=== PATIENT | female | born 1980 | race African-American/Black ===

== ENCOUNTER 2016-11-07 08:42 | Emergency (ER) | payer OTHER ==
[~2016-11-07] VITALS: Ht 160 cm; Wt 61.2 kg
[2016-11-07 08:59] LABS: URINE BILIRUBIN NEGATIVE (Negative); URINE BLOOD NEGATIVE (Negative); URINE COLOR YELLOW; URINE GLUCOSE-RANDOM* NEGATIVE (Negative); URINE KETONES NEGATIVE (Negative); URINE NITRITE NEGATIVE (Negative); URINE PROTEIN (DIPSTICK) NEGATIVE (Negative); URINE UROBILINOGEN 0.2 E.U./dl (0.2-1.0)
[2016-11-07 09:10] LABS: CASTS None Seen /LPF (None Seen); CRYSTALS None Seen /LPF (None Seen); SQUAMOUS 0-3 Few /LPF (0-3); URINE RBC None Seen /HPF (0-2); URINE WBC 0-5 Rare /HPF (0-5)
[2016-11-07 10:30] LABS: HEMATOCRIT 36.4 % (37.0-47.0); MCH 25.5 pg (26.0-34.0); MCHC 32.9 g/dL (28.0-37.0); MCV 77.4 fL (80.0-100.0); PLATELET COUNT 444 thou/uL (150-400); RBC 4.71 mil/uL (4.20-5.00); WBC 11.7 thou/uL (4.0-11.0)
[2016-11-07 10:31] LABS: MANUAL DIFF YES
[2016-11-07 10:36] LABS: OBSERVED RETIC COUNT 2.71 % (0.6-2.6)
[2016-11-07 10:37] LABS: ABSOLUTE RETIC COUNT 0.127 10^6/uL
[2016-11-07 10:39] LABS: CALCIUM 9.2 mg/dL (8.5-10.1); CREATININE 0.9 mg/dL (0.6-1.0); POTASSIUM 3.2 mmol/L (3.5-5.1)
[2016-11-07 10:44] LABS: ALBUMIN 3.8 g/dL (3.4-5.0); TOTAL BILIRUBIN 0.7 mg/dL (<0.1-1.0); TOTAL PROTEIN 7.6 g/dL (6.4-8.2)
[2016-11-07 10:58] LABS: ABSOLUTE NEUTROPHILS 6.9 thou/uL (1.4-8.2); MICROCYTES 2+; TOTAL CELL COUNT 100
[2016-11-07 10:59] LABS: ANISOCYTOSIS 2+
[2016-11-07 11:00] LABS: HYPOCHROMASIA 2+; POLYCHROMASIA OCCASIONAL; TARGET CELLS 1+
[2016-11-07] MEDS ORDERED: NORCO 5-325 TA1 EACH PO (11:57)
[2016-11-07] MEDS ORDERED: PHENERGAN 25 MG25 M1 PO (12:06)
[2016-11-07] MEDS ORDERED: BACTRIM DS TAB1 EACH PO (12:08)
[2016-11-07 12:42] VITALS: BP 114/70
== END 2016-11-07 12:43 | disposition home or self-care (01) ==
LOC: ER 08:42
PROVIDERS: Physician Assistant
DX: N12 Tubulo-interstitial nephritis, not specified as acute or chronic (principal); N83.201 Unspecified ovarian cyst, right side; D57.1 Sickle-cell disease without crisis; Z88.5 Allergy status to narcotic agent

== ENCOUNTER 2016-11-09 08:25 | Emergency (ER) | payer OTHER ==
[~2016-11-09] VITALS: Ht 162.6 cm; Wt 63.5 kg
[~2016-11-09 08:25] MED LIST: BACTRIM DS TAB1 EACH PO; NORCO 5-325 TA1 EACH PO; PHENERGAN 25 MG25 M1 PO
[2016-11-09 08:54] VITALS: BP 124/71
[2016-11-09 10:07] LABS: MCHC 33.2 g/dL (28.0-37.0); WBC 11.2 thou/uL (4.0-11.0)
[2016-11-09 10:10] LABS: HEMATOCRIT 37.7 % (37.0-47.0); HEMOGLOBIN 12.5 gm/dL (12.0-15.0); MCH 25.7 pg (26.0-34.0); MCV 77.4 fL (80.0-100.0); PLATELET COUNT 433 thou/uL (150-400); RBC 4.87 mil/uL (4.20-5.00); RDW 17.8 % (10.5-14.5)
[2016-11-09 10:17] LABS: MANUAL DIFF YES
[2016-11-09 10:18] LABS: CALCIUM 9.4 mg/dL (8.5-10.1); CREATININE 0.8 mg/dL (0.6-1.0); POTASSIUM 3.5 mmol/L (3.5-5.1)
[2016-11-09 10:22] LABS: ALBUMIN 3.9 g/dL (3.4-5.0); TOTAL BILIRUBIN 0.7 mg/dL (<0.1-1.0); TOTAL PROTEIN 7.7 g/dL (6.4-8.2)
[2016-11-09 10:54] LABS: ABSOLUTE RETIC COUNT 0.1209 10^6/uL; OBSERVED RETIC COUNT 2.48 % (0.6-2.6)
[2016-11-09 10:57] LABS: URINE BILIRUBIN NEGATIVE (Negative); URINE BLOOD NEGATIVE (Negative); URINE COLOR YELLOW; URINE GLUCOSE-RANDOM* NEGATIVE (Negative); URINE KETONES TRACE (Negative); URINE NITRITE NEGATIVE (Negative); URINE PROTEIN (DIPSTICK) NEGATIVE (Negative); URINE SPECIFIC GRAVITY 1.015 (1.003-1.035); URINE UROBILINOGEN 0.2 E.U./dl (0.2-1.0)
[2016-11-09 11:00] LABS: ABSOLUTE NEUTROPHILS 7.3 thou/uL (1.4-8.2); TOTAL CELL COUNT 100
[2016-11-09 11:01] LABS: ANISOCYTOSIS 1+
[2016-11-09 11:45] VITALS: BP 115/60
[2016-11-09] MEDS ORDERED: LEVAQUIN 500 M500 M2 PO (12:13)
[2016-11-09] MEDS ORDERED: PHENERGAN 25 MG25 M1 PO (12:13)
[2016-11-09 12:23] VITALS: BP 114/67
== END 2016-11-09 12:51 | disposition left against medical advice (07) ==
LOC: ER 08:25 → 4E 11:08 → EROBS 11:08 → ER 11:08 → EROBS 11:46 → 4E 11:46 → ER 12:51
PROVIDERS: Emergency Medicine; Nurse Practitioner Family
DX: D57.00 Hb-SS disease with crisis, unspecified (principal); R19.7 Diarrhea, unspecified; R10.9 Unspecified abdominal pain; N39.0 Urinary tract infection, site not specified; Z88.5 Allergy status to narcotic agent

== ENCOUNTER 2016-11-12 17:30 | Emergency (ER) | payer OTHER ==
[~2016-11-12] VITALS: Ht 157.5 cm; Wt 76.2 kg
[~2016-11-12 17:30] MED LIST changes: +LEVAQUIN 500 M500 M2 PO
[2016-11-12 18:53] VITALS: BP 111/64
== END 2016-11-12 19:02 | disposition home or self-care (01) ==
LOC: ER 17:30
DX: D57.00 Hb-SS disease with crisis, unspecified (principal); Z88.5 Allergy status to narcotic agent

== ENCOUNTER 2016-11-28 15:16 | Emergency (ER) | payer OTHER ==
[~2016-11-28] VITALS: Ht 157.5 cm; Wt 76.2 kg
[2016-11-28] MEDS ORDERED: XARELTO20 MG PO (15:53)
[2016-11-28] MEDS ORDERED: FOLIC ACID1 MG PO (15:54)
[2016-11-28] MEDS ORDERED: HYDROCODONE-AP1 EAC6 PO (15:54)
[2016-11-28] MEDS ORDERED: DILAUDID 2 MG TA2 MG PO (15:55)
[2016-11-28 16:36] LABS: MCV 77.9 fL (80.0-100.0)
[2016-11-28 16:38] LABS: ABSOLUTE RETIC COUNT 0.1227 10^6/uL; HEMATOCRIT 35.8 % (37.0-47.0); HEMOGLOBIN 11.9 gm/dL (12.0-15.0); MCH 25.9 pg (26.0-34.0); MCHC 33.3 g/dL (28.0-37.0); OBSERVED RETIC COUNT 2.67 % (0.6-2.6); PLATELET COUNT 441 thou/uL (150-400); RDW 18.2 % (10.5-14.5)
[2016-11-28 16:39] LABS: MANUAL DIFF YES
[2016-11-28 16:43] LABS: CREATININE 0.8 mg/dL (0.6-1.0); POTASSIUM 3.1 mmol/L (3.5-5.1)
[2016-11-28 17:12] LABS: ABSOLUTE NEUTROPHILS 6.7 thou/uL (1.4-8.2); TOTAL CELL COUNT 100
[2016-11-28 17:13] LABS: ANISOCYTOSIS 2+
[2016-11-28 17:14] LABS: TARGET CELLS 1+
[2016-11-28 17:15] LABS: POLYCHROMASIA OCCASIONAL; WBC 12.1 thou/uL (4.0-11.0)
[2016-11-28] MEDS ORDERED: PERCOCET 5-3251 EACH PO (17:48)
[2016-11-28 17:58] VITALS: BP 107/53
== END 2016-11-28 18:06 | disposition home or self-care (01) ==
LOC: ER 15:16
PROVIDERS: Emergency Medicine
DX: D57.00 Hb-SS disease with crisis, unspecified (principal); R19.7 Diarrhea, unspecified; Z88.5 Allergy status to narcotic agent

== ENCOUNTER 2016-12-14 02:08 | Emergency (ER) | payer OTHER ==
[~2016-12-14] VITALS: Ht 157.5 cm; Wt 72.6 kg
[~2016-12-14 02:08] MED LIST changes: +DILAUDID 2 MG TA2 MG PO; +FOLIC ACID1 MG PO; +HYDROCODONE-AP1 EAC6 PO; +PERCOCET 5-3251 EACH PO; +XARELTO20 MG PO
[2016-12-14] MEDS ORDERED: PLAVIX 75 MG TA75 MG PO (02:34)
[2016-12-14 02:58] LABS: AMP/METHAMP Negative (Negative); BARBITURATES Negative (Negative); BENZODIAZEPINES Negative (Negative); COCAINE Negative (Negative); METHADONE Negative (Negative); OPIATES POSITIVE (Negative); PCP Negative (Negative); THC Negative (Negative)
[2016-12-14 03:33] LABS: HEMOGLOBIN 11.9 gm/dL (12.0-15.0); MCH 26.1 pg (26.0-34.0); MCV 79.2 fL (80.0-100.0); PLATELET COUNT 389 thou/uL (150-400); RBC 4.54 mil/uL (4.20-5.00)
[2016-12-14 03:37] LABS: MANUAL DIFF YES
[2016-12-14 03:38] LABS: ABSOLUTE RETIC COUNT 0.1157 10^6/uL; OBSERVED RETIC COUNT 2.55 % (0.6-2.6)
[2016-12-14 03:43] LABS: ANION GAP 10 mmol/L (7-16); BUN 5 mg/dL (7-18); CHLORIDE 105 mmol/L (98-107); CO2 24 mmol/L (21-32); CREATININE 0.7 mg/dL (0.6-1.0); GLUCOSE 93 mg/dL (74-106); POTASSIUM 3.4 mmol/L (3.5-5.1); SODIUM 139 mmol/L (136-145)
[2016-12-14 03:48] LABS: ALBUMIN 3.3 g/dL (3.4-5.0); ALKALINE PHOSPHATASE 57 U/L (46-116); DIRECT BILIRUBIN < 0.1 mg/dL (<0.1-0.3); SGOT 22 U/L (15-37); SGPT 10 U/L (30-65); TOTAL BILIRUBIN 0.6 mg/dL (<0.1-1.0); TOTAL PROTEIN 6.8 g/dL (6.4-8.2)
[2016-12-14 05:09] LABS: ABSOLUTE NEUTROPHILS 4.1 thou/uL (1.4-8.2); TOTAL CELL COUNT 100
[2016-12-14 05:10] LABS: ANISOCYTOSIS 2+; OVALOCYTES 1+; POLYCHROMASIA OCCASIONAL; TARGET CELLS 1+
[2016-12-14] MEDS ORDERED: NORCO 5-325 TA1 EACH PO (05:34)
[2016-12-14] MEDS ORDERED: ZOFRAN ODT4 MG PO (05:34)
[2016-12-14] MEDS ORDERED: LOPERAMIDE 2 MG2 M1 PO (05:34)
[2016-12-14 05:35] VITALS: BP 123/76
== END 2016-12-14 05:35 | disposition home or self-care (01) ==
LOC: ER 02:08
PROVIDERS: Emergency Medicine
DX: D57.00 Hb-SS disease with crisis, unspecified (principal); R19.7 Diarrhea, unspecified; F10.99 Alcohol use, unspecified with unspecified alcohol-induced disorder; Z88.5 Allergy status to narcotic agent

== ENCOUNTER 2016-12-23 16:38 | Emergency (ER) | payer OTHER ==
[~2016-12-23] VITALS: Ht 157.5 cm; Wt 77.6 kg
[~2016-12-23 16:38] MED LIST changes: +LOPERAMIDE 2 MG2 M1 PO; +PLAVIX 75 MG TA75 MG PO; +ZOFRAN ODT4 MG PO
[2016-12-23 19:45] LABS: WBC 12.2 thou/uL (4.0-11.0)
[2016-12-23 19:46] LABS: HEMOGLOBIN 11.5 gm/dL (12.0-15.0); MCH 26.4 pg (26.0-34.0); MCHC 34.7 g/dL (28.0-37.0); PLATELET COUNT 408 thou/uL (150-400); RBC 4.34 mil/uL (4.20-5.00); RDW 17.5 % (10.5-14.5)
[2016-12-23 19:54] LABS: CALCIUM 8.7 mg/dL (8.5-10.1); CREATININE 0.7 mg/dL (0.6-1.0); POTASSIUM 3.2 mmol/L (3.5-5.1)
[2016-12-23 19:55] LABS: MANUAL DIFF YES
[2016-12-23 20:27] LABS: ABSOLUTE NEUTROPHILS 7.1 thou/uL (1.4-8.2); TOTAL CELL COUNT 100
[2016-12-23 20:28] LABS: ANISOCYTOSIS 1+; HYPOCHROMASIA 1+; MICROCYTES 1+; PLATELET ESTIMATE INCREASED
[2016-12-23 20:29] LABS: POIKILOCYTOSIS 1+; TARGET CELLS 1+
[2016-12-23] MEDS ORDERED: NORCO 5-325 TA1 EACH PO (21:07)
[2016-12-23 21:20] VITALS: BP 97/55
== END 2016-12-23 21:21 | disposition home or self-care (01) ==
LOC: ER 16:38
PROVIDERS: Emergency Medicine
DX: T80.89XA Other complications following infusion, transfusion and therapeutic injection, initial encounter (principal); F10.99 Alcohol use, unspecified with unspecified alcohol-induced disorder; Z88.5 Allergy status to narcotic agent; Y84.8 Other medical procedures as the cause of abnormal reaction of the patient, or of later complication, without mention of misadventure at the time of the procedure; Y92.89 Other specified places as the place of occurrence of the external cause

== ENCOUNTER 2017-01-06 19:50 | Inpatient (IN) | payer OTHER ==
[~2017-01-06] VITALS: Ht 157.5 cm; Wt 78.0 kg
[2017-01-06 19:57] VITALS: BP 144/77
[2017-01-06 22:16] LABS: HEMATOCRIT 34.4 % (37.0-47.0); HEMOGLOBIN 11.4 gm/dL (12.0-15.0); MCH 25.5 pg (26.0-34.0); MCHC 33.2 g/dL (28.0-37.0); MCV 76.7 fL (80.0-100.0); PLATELET COUNT 410 thou/uL (150-400); RBC 4.48 mil/uL (4.20-5.00); RDW 17.8 % (10.5-14.5); WBC 18.3 thou/uL (4.0-11.0)
[2017-01-06 22:23] LABS: CALCIUM 9.1 mg/dL (8.5-10.1); CREATININE 0.7 mg/dL (0.6-1.0); POTASSIUM 3.3 mmol/L (3.5-5.1)
[2017-01-06 22:24] LABS: MANUAL DIFF YES
[2017-01-06 22:25] LABS: ABSOLUTE RETIC COUNT 0.1192 10^6/uL; OBSERVED RETIC COUNT 2.66 % (0.6-2.6)
[2017-01-06 22:28] LABS: ALBUMIN 3.6 g/dL (3.4-5.0); TOTAL BILIRUBIN 0.6 mg/dL (<0.1-1.0); TOTAL PROTEIN 7.6 g/dL (6.4-8.2)
[2017-01-06 23:49] LABS: ABSOLUTE NEUTROPHILS 11.5 thou/uL (1.4-8.2); NUCLEATED RBCS 2 /100WBC; TARGET CELLS 3+; TOTAL CELL COUNT 100
[2017-01-06 23:50] LABS: ANISOCYTOSIS 2+; MACROCYTES 1+; POIKILOCYTOSIS 2+; POLYCHROMASIA 1+
[2017-01-06 23:51] LABS: LARGE PLATELETS SEVERAL; OVALOCYTES OCCASIONAL
[2017-01-06 23:53] VITALS: BP 116/61
[2017-01-07 00:24] VITALS: BP 112/64
[2017-01-07 00:30] VITALS: BP 114/64
[2017-01-07] MEDS ORDERED: PRADAXA150 MG PO (02:04)
[2017-01-07 04:59] VITALS: BP 111/64
[2017-01-07 06:32] LABS: CALCIUM 8.6 mg/dL (8.5-10.1); CREATININE 0.6 mg/dL (0.6-1.0)
[2017-01-07 08:15] VITALS: BP 104/49
[2017-01-07 19:40] VITALS: BP 121/66
[2017-01-08 03:40] VITALS: BP 99/56
[2017-01-08 04:51] LABS: HEMATOCRIT 31.4 % (37.0-47.0); HEMOGLOBIN 10.9 gm/dL (12.0-15.0); MCH 26.3 pg (26.0-34.0); MCHC 34.9 g/dL (28.0-37.0); MCV 75.5 fL (80.0-100.0); RBC 4.16 mil/uL (4.20-5.00); RDW 17.5 % (10.5-14.5); WBC 15.1 thou/uL (4.0-11.0)
[2017-01-08 05:02] LABS: CALCIUM 8.9 mg/dL (8.5-10.1); CREATININE 0.6 mg/dL (0.6-1.0); POTASSIUM 3.6 mmol/L (3.5-5.1)
[2017-01-08 08:00] VITALS: BP 110/55
[2017-01-08 17:57] VITALS: BP 82/43
[2017-01-08 19:24] VITALS: BP 104/55
[2017-01-09 06:16] LABS: CALCIUM 8.5 mg/dL (8.5-10.1); CREATININE 0.6 mg/dL (0.6-1.0); PHOSPHORUS 4.5 mg/dL (2.5-4.9); POTASSIUM 3.5 mmol/L (3.5-5.1); TOTAL BILIRUBIN 0.5 mg/dL (<0.1-1.0); TOTAL PROTEIN 6.7 g/dL (6.4-8.2)
[2017-01-09 09:25] VITALS: BP 92/50
[2017-01-09] MEDS ORDERED: AUGMENTIN 875-1 EACH PO (12:06)
[2017-01-09 16:34] VITALS: BP 100/51
[2017-01-10 05:48] LABS: HEMATOCRIT 30.9 % (37.0-47.0); HEMOGLOBIN 10.6 gm/dL (12.0-15.0); MCH 25.9 pg (26.0-34.0); MCHC 34.3 g/dL (28.0-37.0); MCV 75.4 fL (80.0-100.0); RBC 4.1 mil/uL (4.20-5.00); RDW 17.7 % (10.5-14.5); WBC 12.8 thou/uL (4.0-11.0)
[2017-01-10 07:30] VITALS: BP 98/40
[2017-01-10] MEDS ORDERED: NORCO 5-325 TA1 EACH PO (10:03)
[2017-01-10 10:13] VITALS: BP 98/40
== END 2017-01-10 11:43 | disposition home or self-care (01) | DRG 812 ==
LOC: ER 19:50 → 5S 23:27 → EROBS 23:27 → 5S 01-07 00:24
PROVIDERS: Emergency Medicine; Hospitalist; Nurse Practitioner Acute Care
DX: D57.00 Hb-SS disease with crisis, unspecified (principal); L03.211 Cellulitis of face; D72.829 Elevated white blood cell count, unspecified; F17.210 Nicotine dependence, cigarettes, uncomplicated; E87.6 Hypokalemia; K59.00 Constipation, unspecified; J32.9 Chronic sinusitis, unspecified; Z88.5 Allergy status to narcotic agent; Z79.899 Other long term (current) drug therapy; Z90.49 Acquired absence of other specified parts of digestive tract; Z86.718 Personal history of other venous thrombosis and embolism; Z90.81 Acquired absence of spleen
CPT/HCPCS: 10086

== ENCOUNTER 2017-01-22 22:44 | Emergency (ER) | payer OTHER ==
[~2017-01-22] VITALS: Ht 167.6 cm; Wt 81.7 kg
[~2017-01-22 22:44] MED LIST changes: +AUGMENTIN 875-1 EACH PO; +PRADAXA150 MG PO
[2017-01-22 23:46] LABS: HEMOGLOBIN 11.1 gm/dL (12.0-15.0); MCH 25.5 pg (26.0-34.0); MCHC 33.6 g/dL (28.0-37.0); MCV 75.7 fL (80.0-100.0); OBSERVED RETIC COUNT 1.46 % (0.6-2.6); RBC 4.35 mil/uL (4.20-5.00); RDW 17.6 % (10.5-14.5); WBC 13.5 thou/uL (4.0-11.0)
== END 2017-01-23 00:24 | disposition home or self-care (01) ==
LOC: ER 22:44
PROVIDERS: Emergency Medicine
DX: D57.00 Hb-SS disease with crisis, unspecified (principal); F17.210 Nicotine dependence, cigarettes, uncomplicated; F10.99 Alcohol use, unspecified with unspecified alcohol-induced disorder; Z90.49 Acquired absence of other specified parts of digestive tract; Z86.718 Personal history of other venous thrombosis and embolism; Z90.81 Acquired absence of spleen; Z87.09 Personal history of other diseases of the respiratory system; Z88.5 Allergy status to narcotic agent

== ENCOUNTER 2017-02-19 18:14 | Emergency (ER) | payer OTHER ==
[~2017-02-19] VITALS: Ht 157.5 cm; Wt 74.8 kg
[2017-02-19] MEDS ORDERED: DILAUDID 2 MG TA2 MG PO (19:14)
[2017-02-19 19:38] LABS: ABSOLUTE RETIC COUNT 0.1288 10^6/uL; HEMATOCRIT 32.8 % (37.0-47.0); HEMOGLOBIN 11.2 gm/dL (12.0-15.0); MCH 25.8 pg (26.0-34.0); MCV 75.7 fL (80.0-100.0); OBSERVED RETIC COUNT 2.97 % (0.6-2.6); PLATELET COUNT 449 thou/uL (150-400); RBC 4.33 mil/uL (4.20-5.00); RDW 18.8 % (10.5-14.5); WBC 11.9 thou/uL (4.0-11.0)
[2017-02-19 19:40] LABS: CALCIUM 8.7 mg/dL (8.5-10.1); CREATININE 0.7 mg/dL (0.6-1.0); POTASSIUM 4.1 mmol/L (3.5-5.1)
[2017-02-19 19:41] LABS: MANUAL DIFF YES
[2017-02-19 20:06] LABS: URINE BILIRUBIN NEGATIVE (Negative); URINE BLOOD 2+ (Negative); URINE COLOR YELLOW; URINE GLUCOSE-RANDOM* NEGATIVE (Negative); URINE KETONES NEGATIVE (Negative); URINE LEUKOCYTES-REFLEX NEGATIVE (Negative); URINE PROTEIN (DIPSTICK) NEGATIVE (Negative); URINE UROBILINOGEN 0.2 E.U./dl (0.2-1.0)
[2017-02-19 20:11] LABS: SQUAMOUS 0-3 Few /LPF (0-3); URINE RBC 0-2 Rare /HPF (0-2); URINE WBC-REFLEX None Seen /HPF (0-5)
[2017-02-19 20:12] LABS: CASTS None Seen /LPF (None Seen); CRYSTALS None Seen /LPF (None Seen)
[2017-02-19 20:43] LABS: ABSOLUTE NEUTROPHILS 4.8 thou/uL (1.4-8.2); ATYPICAL LYMPHS 1 %; TOTAL CELL COUNT 100
[2017-02-19 20:44] LABS: ANISOCYTOSIS 2+
[2017-02-19 20:45] LABS: TARGET CELLS 1+
[2017-02-19] MEDS ORDERED: FLAGYL500 MG PO (21:10)
[2017-02-19] MEDS ORDERED: NORCO 5-325 TA1 EACH PO (21:10)
== END 2017-02-19 21:51 | disposition home or self-care (01) ==
LOC: ER 18:14
PROVIDERS: Emergency Medicine
DX: A59.9 Trichomoniasis, unspecified (principal); D57.00 Hb-SS disease with crisis, unspecified; F17.210 Nicotine dependence, cigarettes, uncomplicated; F10.99 Alcohol use, unspecified with unspecified alcohol-induced disorder; Z90.49 Acquired absence of other specified parts of digestive tract; Z86.718 Personal history of other venous thrombosis and embolism; Z88.5 Allergy status to narcotic agent

== ENCOUNTER 2017-03-16 11:48 | Emergency (ER) | payer OTHER ==
[~2017-03-16] VITALS: Ht 157.5 cm; Wt 74.8 kg
[~2017-03-16 11:48] MED LIST changes: +FLAGYL500 MG PO
== END 2017-03-16 15:37 | disposition home or self-care (01) ==
LOC: ER 11:48
DX: G89.29 Other chronic pain (principal); D57.1 Sickle-cell disease without crisis; F17.210 Nicotine dependence, cigarettes, uncomplicated; Z87.09 Personal history of other diseases of the respiratory system; Z86.718 Personal history of other venous thrombosis and embolism; Z98.890 Other specified postprocedural states; Z88.5 Allergy status to narcotic agent

== ENCOUNTER 2017-06-10 17:24 | Emergency (ER) | payer OTHER ==
[~2017-06-10] VITALS: Ht 157.5 cm; Wt 79.8 kg
[2017-06-10] MEDS ORDERED: DILAUDID 2 MG TA2 MG PO (17:39)
[2017-06-10] MEDS ORDERED: HYDROCODONE-AP1 EAC6 PO (17:40)
[2017-06-10] MEDS ORDERED: MAGIC MOUTHWASH SW&SWALLOW (18:01)
[2017-06-10] MEDS ORDERED: AMOXICILLIN500 M1 PO (18:03)
[2017-06-10] MEDS ORDERED: NORCO 5-325 TA1 EACH PO (18:07)
[2017-06-10 18:37] VITALS: BP 152/74
[2017-10-02] MEDS ORDERED: ALBUTEROL2.5 MG/31 INH (04:03)
[2018-01-10] MEDS ORDERED: FIRVANQ50 MG/1 ML PO (12:14)
[2018-01-10] MEDS ORDERED: RENVELA800 MG PO (12:14)
[2018-01-10] MEDS ORDERED: PROTONIX 20 MG20 M1 PO (12:14)
[2018-01-10] MEDS ORDERED: SOLU-MEDRO125 MG/23 IV PUSH (12:19)
[2018-02-07] MEDS ORDERED: RENVELA800 MG PO (03:40)
[2018-02-07] MEDS ORDERED: PROTONIX 20 MG20 M1 PO (03:40)
[2018-02-09] MEDS ORDERED: ENOXAPARIN80 MG/0.1 SUBQ (12:07)
[2018-02-09] MEDS ORDERED: COUMADIN 3 MG TA3 M1 PO (12:07)
[2018-02-09] MEDS ORDERED: SLOW-MAG64 M1 PO (12:07)
[2018-02-26] MEDS ORDERED: ZOFRAN ODT4 MG PO (12:17)
== END 2017-06-10 18:38 | disposition home or self-care (01) ==
LOC: ER 17:24
DX: K08.89 Other specified disorders of teeth and supporting structures (principal); D57.1 Sickle-cell disease without crisis; F17.210 Nicotine dependence, cigarettes, uncomplicated; Z90.49 Acquired absence of other specified parts of digestive tract; Z86.718 Personal history of other venous thrombosis and embolism; Z88.5 Allergy status to narcotic agent

== ENCOUNTER 2017-08-13 03:54 | Emergency (ER) | payer OTHER ==
[~2017-08-13] VITALS: Ht 157.5 cm; Wt 79.8 kg
[~2017-08-13 03:54] MED LIST changes: +AMOXICILLIN500 M1 PO; +MAGIC MOUTHWASH SW&SWALLOW
[2017-08-13 05:39] LABS: CALCIUM 8.8 mg/dL (8.5-10.1); CREATININE 0.8 mg/dL (0.6-1.0); POTASSIUM 3.3 mmol/L (3.5-5.1)
[2017-08-13 06:34] LABS: MCV 76.9 fL (80.0-100.0); OBSERVED RETIC COUNT 2.93 % (0.6-2.6); PLATELET COUNT 412 thou/uL (150-400); WBC 13.8 thou/uL (4.0-11.0)
[2017-08-13 06:36] LABS: ABSOLUTE RETIC COUNT 0.1351 10^6/uL; HEMATOCRIT 35.5 % (37.0-47.0); HEMOGLOBIN 11.5 gm/dL (12.0-15.0); MCHC 32.5 g/dL (28.0-37.0); RBC 4.62 mil/uL (4.20-5.00); RDW 18.2 % (10.5-14.5)
[2017-08-13 07:08] LABS: ABSOLUTE NEUTROPHILS 7.7 thou/uL (1.4-8.2); ANISOCYTOSIS 2+; ATYPICAL LYMPHS 5 %
[2017-08-13 07:10] LABS: HYPOCHROMASIA 1+; POIKILOCYTOSIS 2+
[2017-08-13 07:13] LABS: OVALOCYTES 1+; TARGET CELLS 2+
[2017-08-13 07:14] LABS: LARGE PLATELETS FEW; POLYCHROMASIA 2+
[2017-08-13 07:17] LABS: HOWELL-JOLLY BODIES FEW
[2017-08-13 07:41] VITALS: BP 110/58
[2017-10-02] MEDS ORDERED: ALBUTEROL2.5 MG/31 INH (04:03)
[2018-01-10] MEDS ORDERED: RENVELA800 MG PO (12:14)
[2018-01-10] MEDS ORDERED: FIRVANQ50 MG/1 ML PO (12:14)
[2018-01-10] MEDS ORDERED: PROTONIX 20 MG20 M1 PO (12:14)
[2018-01-10] MEDS ORDERED: SOLU-MEDRO125 MG/23 IV PUSH (12:19)
[2018-02-07] MEDS ORDERED: RENVELA800 MG PO (03:40)
[2018-02-07] MEDS ORDERED: PROTONIX 20 MG20 M1 PO (03:40)
[2018-02-09] MEDS ORDERED: COUMADIN 3 MG TA3 M1 PO (12:07)
[2018-02-09] MEDS ORDERED: ENOXAPARIN80 MG/0.1 SUBQ (12:07)
[2018-02-09] MEDS ORDERED: SLOW-MAG64 M1 PO (12:07)
[2018-02-26] MEDS ORDERED: ZOFRAN ODT4 MG PO (12:17)
== END 2017-08-13 07:42 | disposition home or self-care (01) ==
LOC: ER 03:54
PROVIDERS: Emergency Medicine
DX: D57.1 Sickle-cell disease without crisis (principal); Z90.49 Acquired absence of other specified parts of digestive tract; Z86.718 Personal history of other venous thrombosis and embolism; F17.210 Nicotine dependence, cigarettes, uncomplicated; Z88.5 Allergy status to narcotic agent

== ENCOUNTER 2017-11-14 23:07 | Emergency (ER) | payer OTHER ==
[~2017-11-14] VITALS: Ht 157.5 cm; Wt 77.1 kg
[~2017-11-14 23:07] MED LIST changes: +ALBUTEROL2.5 MG/31 INH
[2017-11-14] MEDS ORDERED: HYDROCODONE-AP1 EAC6 PO (23:48)
[2017-11-14] MEDS ORDERED: DILAUDID 2 MG TA2 MG PO (23:48)
[2017-11-14 23:57] LABS: AMP/METHAMP Negative (Negative); BARBITURATES Negative (Negative); BENZODIAZEPINES Negative (Negative); COCAINE Negative (Negative); METHADONE Negative (Negative); OPIATES Negative (Negative); PCP Negative (Negative)
== END 2017-11-15 01:19 | disposition home or self-care (01) ==
LOC: ER 23:07
PROVIDERS: Emergency Medicine
DX: D57.00 Hb-SS disease with crisis, unspecified (principal); M43.6 Torticollis; F17.210 Nicotine dependence, cigarettes, uncomplicated; Z86.718 Personal history of other venous thrombosis and embolism; Z88.5 Allergy status to narcotic agent

== ENCOUNTER 2017-12-04 20:19 | Emergency (ER) | payer OTHER ==
[~2017-12-04] VITALS: Ht 157.5 cm; Wt 77.1 kg
[2017-12-04 21:17] LABS: HEMOGLOBIN 11.5 gm/dL (12.0-15.0)
[2017-12-04 21:19] LABS: HEMATOCRIT 33.8 % (37.0-47.0); MCH 25.7 pg (26.0-34.0); MCV 75.6 fL (80.0-100.0); PLATELET COUNT 413 thou/uL (150-400); RBC 4.47 mil/uL (4.20-5.00); RDW 17.6 % (10.5-14.5); WBC 12.6 thou/uL (4.0-11.0)
[2017-12-04 21:26] LABS: CALCIUM 9.2 mg/dL (8.5-10.1); CREATININE 0.8 mg/dL (0.6-1.0); POTASSIUM 3.5 mmol/L (3.5-5.1)
[2017-12-04 21:42] LABS: ABSOLUTE NEUTROPHILS 6.3 thou/uL (1.4-8.2); ANISOCYTOSIS 1+; ATYPICAL LYMPHS 12 %
[2017-12-04 21:43] LABS: HYPOCHROMASIA 1+; LARGE PLATELETS SEVERAL
[2017-12-04 21:45] LABS: POIKILOCYTOSIS 1+; TARGET CELLS 2+
[2017-12-04] MEDS ORDERED: PROMETHAZINE/C118 ML PO (22:49)
== END 2017-12-04 23:39 | disposition home or self-care (01) ==
LOC: ER 20:19
PROVIDERS: Physician Assistant
DX: J20.9 Acute bronchitis, unspecified (principal); D57.00 Hb-SS disease with crisis, unspecified; Z90.49 Acquired absence of other specified parts of digestive tract; F17.210 Nicotine dependence, cigarettes, uncomplicated; Z88.5 Allergy status to narcotic agent

== ENCOUNTER 2018-01-10 12:55 | Inpatient (IN) | payer OTHER ==
[~2018-01-10] VITALS: Ht 157.5 cm; Wt 80.7 kg
--- NOTE | ~2018-01-10 | PLAN ---
[facility] [address] [place] [place] [address] REHAB UNIT PLAN OF CARE Name: ROMARIO BLEDSOE Room #: 510-P ADM IN M.R.#: [id number] Admission: 01/10/18 Attend Phys: Sandip Ames MD Discharge: Date of : 78 Report #: [id number] THIS REPORT FOR: //name// CC: Sandip Martinez DATE OF SERVICE: 01/12/2018 PROGRESS NOTE/OVERALL PLAN OF CARE SUBJECTIVE: The patient is seen back today in followup. She is in no distress. She was transfused yesterday with her lower hemoglobin and she now has increased from 5.7 up to 7.2. Nephrology is to decide if she needs another dialysis. She has now been made modified independent in the room with transfers independent. She has ambulated up to 150 feet standby assistance without a device. In occupational therapy, lower body dressing is contact guard. She is on a regular diet with all liquids. ASSESSMENT: 1. Critical illness with myopathy. 2. Acute respiratory failure, status post extubation on 01/04/2018. 3. Prolonged intensive care unit course. 4. Pulmonary embolism. 5. Healthcare-associated pneumonia. 6. Acute renal failure, on temporary hemodialysis. 7. Shock liver. 8. Clostridium difficile colitis. 9. Sickle cell disease. 10. Chronic anemia. She did receive transfusion yesterday. PLAN: The patient is progressing nicely from a functional perspective. As far as the overall plan of care, this is based on the preadmission screen, post-admission physician evaluation and information garnered from therapy assessments. 1. Estimated length of stay should hopefully be fairly short, around 6-7 days or possibly longer if needed. 2. Medical prognosis is reasonably good. 3. Anticipated interventions include the interdisciplinary acute inpatient rehabilitation program with PT, OT, and rehab nursing assisting regarding medication management, skin care prophylaxis, bowel and bladder issues and nursing education. 4. Anticipated functional outcomes would be for the patient to become modified independent with transfers, mobility, ADLs, and further improvement in medical stability, so that she can return back to the home setting. 5. Discharge destination is to her house, where she lives with her daughter and granddaughter. [facility] [address] [place] [address] REHAB UNIT PLAN OF CARE Name: ROMARIO BLEDSOE Room #: 510-P [facility] IN .R.#: [id number] Admission: 01/10/18 Attend Phys: Sandip Ames MD Discharge: Date of : 78 Report #: [id number] 6. Expected therapy by discipline includes PT and OT 1-1/2 hours per day each 5 days a week throughout the duration of the acute inpatient rehabilitation stay. By: [id number] Sandip Ames MD /nt
--- NOTE | ~2018-01-10 | HC ---
[facility] [place] [place] [place] [address] CONSULTATION Name: ROMARIO BLEDSOE Room #: 510-P [facility] IN M.R.#: [id number] Admission: 01/10/18 Attend Phys: Sandip Ames MD Discharge: 01/16/18 Date of : 78 Report #: [id number] THIS REPORT FOR: //name// CC: Sandip Martinez DATE OF SERVICE: 01/15/2018 Neurologic Behavioral Status Examination ATTENDING PHYSICIAN: Sandip Ames MD HAND INSPECTOR: Rusty Barcenas, PhD CLINICAL PRESENTATION: The patient is a 37-year-old -Eth[place]ian female admitted to the rehabilitation unit at [facility] for comprehensive inpatient rehabilitation program to improve functional mobility, activities of daily living and self-care, and mental status secondary to deficits from medical complexity and general debility. Her diagnoses include critical illness myopathy, acute respiratory failure, status post extubation, prolonged intensive care unit course, pulmonary embolism, healthcare-associated pneumonia, acute renal failure, on temporary hemodialysis, shock liver, C. diff, sickle cell disease, chronic anemia, hypotension, and a history of splenectomy. A complete description of her medical condition and history can be found in her medical record. Neuropsychological consultation was requested to provide assistance in the assessment of cognitive and emotional status and to provide recommendations and services. Prior to this most recent medical event, she was living independently in her own home. 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 The patient is a college graduate. She has one child. Her family is supportive. 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 EXAMINATION FINDINGS: The patient was alert and cooperative with the assessment. She accurately described events surrounding her admission. There is no evidence of aphasia. Her thoughts are logical and goal oriented. There is no evidence of thought disorder. She does not report auditory or visual hallucinations. There is no suicidal ideation. She appears frustrated with her prolonged hospitalization and need for treatment along with the management of C. diff. Her primary symptoms are fatigue and tiredness. Her mood appears anxious, although she does not report subjective anxiety or depression. [facility] [address] [place] [address] CONSULTATION Name: ROMARIO BLEDSOE Room #: 510-P [facility] IN M.R.#: [id number] Admission: 01/10/18 Attend Phys: Sandip Ames MD Discharge: 01/16/18 Date of : 78 Report #: [id number] Her performance on the MMSE-2 brief version is within normal limits with a raw score of 15/16. She was 2/3 for immediate recall of 3 items after brief time delay and distraction. The patient is well oriented to time and place. Her performance on the MMSE-2 standard version is within normal limits with raw score 26/30. She was at 2/5 for serial 7s, 2/2 for naming, 1/1 for repetition. Comprehension, being able to read and follow single command and write these are within normal limits. Diminished concentration is suggested by her performance. The patient is alert and oriented and cognition appears satisfactory. Her mood is anxious, as a result of the prolonged hospitalization from the severity of medical condition. DIAGNOSTIC IMPRESSION: Unspecified anxiety disorder. RECOMMENDATIONS: The patient will benefit from support and reassurance regarding her recovery. Psychological counseling as needed to assist in the management of anxiety. Cognitive functioning appears well maintained at this time. It should be noted that chronic respiratory failure and symptoms regarding oxygen can play role in variability in cognition. Thank you very much for allowing me to provide the consultation on this patient. <ELECTRONICALLY SIGNED> By: Rusty Barcenas, PhD 01/16/18 [id number] Rusty Barcenas, PhD /nt
--- NOTE | ~2018-01-10 | H ---
[facility] [place] [place] [address] HISTORY AND PHYSICAL Name: ROMARIO BLEDSOE Room #: 510-P ADM IN M.R.#: [id number] Admission: 01/10/18 Attend Phys: Sandip Ames MD Discharge: Date of : 78 Report #: [id number] THIS REPORT FOR: //name// CC: Sandip Martinez DATE OF SERVICE: 01/10/2018 HISTORY AND PHYSICAL/POSTADMISSION PHYSICIAN EVALUATION HISTORY OF PRESENT ILLNESS: The patient is a 38-year-old -Nepalese female, originally presented to [facility] on 12/21/2017 with fever, shortness of breath, and chest pain. She had a prolonged hospital course. She was found to have healthcare-associated pneumonia, acute respiratory failure, pulmonary embolism, C. diff, acute renal insufficiency and temporary hemodialysis, shock liver, epistaxis, and sickle cell disease with chronic pain. She was intubated from 12/29/2017 to 01/04/2018. She was seen by multiple consultants including Pulmonary, Nephrology, Infectious Disease, hospitalist, ENT, and GI. She was noted to be quite weak and debilitated. With her prolonged intubation, complex hospitalization, and significant weakness, it was felt that she had a critical illness myopathy. She has now been admitted for acute in-hospital inpatient rehabilitation. PAST MEDICAL HISTORY: Includes sickle cell, splenectomy, cholecystectomy, ectopic , DVT in the arm, respiratory failure, pneumonia with intubation in September 2016, fungal blood infection in September 2016. HABITS: Five cigarettes per day. Alcohol only on special occasions. ALLERGIES: MORPHINE. SOCIAL HISTORY: She lives in a house, stairs to enter, all living on one level, laundry in the basement with 12 stairs down. She lives with her daughter and granddaughter who are noted to be moving in with her. Utilizing no assistive device prior. She was independent for ADLs and IADLs. 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 ALLERGIES: MORPHINE AND PEACHES. REVIEW OF SYSTEMS: Complains of overall fatigue. No chest pain, no shortness of breath, no abdominal discomfort. Notes weakness of upper and lower extremities. No current focal pain complaints. Did not offer any complaints of abdominal discomfort. No fever or chills. PHYSICAL EXAMINATION: GENERAL: She is a pleasant, overweight 38-year-old -N[place]alese female in [address] [address] HISTORY AND PHYSICAL Name: ROMARIO BLEDSOE Room #: 510-P [facility] IN M.R.#: [id number] Admission: 01/10/18 Attend Phys: Sandip Ames MD Discharge: Date of : 78 Report #: [id number] no obvious distress. VITAL SIGNS: Last recorded temperature 97.7, pulse 82, respirations 18, blood pressure 144/66. The patient is alert. HEENT: Appeared to be benign. Facies are symmetric. CHEST: Sounded clear to auscultation. CARDIAC: Regular rate and rhythm. ABDOMEN: Bowel sounds positive, nontender. GENITOURINARY AND RECTAL: Deferred. MUSCULOSKELETAL: Functional range of motion of the upper extremity, strength is a grade 4- to 3+/5, DTRs are trace to 1. Lower extremities with no focal calf swelling, functional range of motion, strength is grade 4-/5. She does have some paresthesias of both lower extremities. She appears to have some foot drop. Dorsiflexion really only 2+ to 3-/5. Knee strength is 3+/5. She needs assistance with sit to stand and short distance walker ambulation. ASSESSMENT: A 38-year-old -Nepalese female with the following problem list: 1. Critical illness with myopathy. 2. Acute respiratory failure, status post extubation on 01/04/2018. 3. Prolonged intensive care unit course. 4. Pulmonary embolism. 5. Healthcare-associated pneumonia. 6. Acute renal failure, on temporary hemodialysis. 7. Shock liver. 8. Clostridium difficile colitis. 9. Sickle cell disease. 10. Chronic anemia. Her hemoglobin is only 5.7 this a.m. and it looks like she is going to need another transfusion of at least 1 unit. 11. Hypotension. 12. History of splenectomy. PLAN: The patient is admitted for acute in-hospital inpatient rehabilitation. Current plan is for hemodialysis when needed. With sickle cell anemia, Hematology is involved. Pulmonary has been following regarding her respiratory failure, which is improved/resolved. From a postadmission physician evaluation perspective, there are no relevant changes since the preadmission screening other than her severely low hemoglobin this morning, which is being addressed as above. As far as review of prior medical and functional and current medical and functional conditions and comorbidities, please see her above noted problem list. Please see the patient's previous and current functional status. As far as risks of complication, she has the multiple medical comorbidities as noted above. The initial plan of care involves the interdisciplinary acute inpatient rehabilitation program with the goal of maximizing the patient's functional independence, so that she can hopefully return back to her prior living situation. Measurable functional goals would be for the patient to become modified independent with transfers, mobility, ADLs, overall strength, so that [address] [address] HISTORY AND PHYSICAL Name: ROMARIO BLEDSOE Room #: 510-P ADM IN ..#: [id number] Admission: 01/10/18 Attend Phys: Sandip Ames MD Discharge: Date of : 78 Report #: [id number] she can return back to the home setting. Prognosis is reasonably good with the estimated length of stay probably at least 7-14 days pending progress. Potential barriers would include her multiple medical comorbidities and decreased functional status. The patient meets diagnostic criteria for an acute in-hospital inpatient rehabilitation stay. She meets the medical necessity criteria. She does have the tolerance for therapies and has appropriate discharge goals back to the home setting. By: [id number] Sandip Ames MD /nt
[~2018-01-10 12:55] MED LIST changes: +FIRVANQ50 MG/1 ML PO; +PROMETHAZINE/C118 ML PO; +PROTONIX 20 MG20 M1 PO; +RENVELA800 MG PO; +SOLU-MEDRO125 MG/23 IV PUSH
[2018-01-10 16:31] VITALS: BP 104/56
[2018-01-10 22:43] VITALS: BP 144/66
[2018-01-11 07:00] LABS: MCH 26.2 pg (26.0-34.0); MCHC 33.4 g/dL (28.0-37.0); MCV 78.5 fL (80.0-100.0); RBC 2.16 mil/uL (4.20-5.00); RDW 24.3 % (10.5-14.5); WBC 28.4 thou/uL (4.0-11.0)
[2018-01-11 07:02] LABS: CALCIUM 8.7 mg/dL (8.5-10.1); CREATININE 5.7 mg/dL (0.6-1.0); POTASSIUM 4.1 mmol/L (3.5-5.1)
[2018-01-11 07:17] LABS: HEMATOCRIT 16.9 % (37.0-47.0); HEMOGLOBIN 5.7 gm/dL (12.0-15.0)
[2018-01-11 08:00] VITALS: BP 138/66
[2018-01-11 09:45] VITALS: BP 136/78; BP 144/78
[2018-01-11 12:16] LABS: OBSERVED RETIC COUNT 4.29 % (0.6-2.6)
[2018-01-11 13:00] VITALS: BP 144/78
[2018-01-11 13:38] LABS: % SATURATION 50 % (20-39); IRON 110 ug/dL (50-170); TIBC 219 ug/dL (250-450)
[2018-01-11 16:24] LABS: HEMOGLOBIN 6.5 gm/dL (12.0-15.0)
[2018-01-11 16:29] LABS: HEMATOCRIT 19.6 % (37.0-47.0)
[2018-01-11 16:49] LABS: INR 3.8; PROTIME 38.2 Seconds (9.3-11.4)
[2018-01-11 20:45] VITALS: BP 134/70
[2018-01-12 05:04] LABS: HEMATOCRIT 21.5 % (37.0-47.0); HEMOGLOBIN 7.2 gm/dL (12.0-15.0); MCH 27.2 pg (26.0-34.0); MCHC 33.7 g/dL (28.0-37.0); MCV 80.6 fL (80.0-100.0); PLATELET COUNT 481 thou/uL (150-400); RBC 2.67 mil/uL (4.20-5.00); WBC 29.4 thou/uL (4.0-11.0)
[2018-01-12 05:18] LABS: ALBUMIN 3.2 g/dL (3.4-5.0); CALCIUM 8.3 mg/dL (8.5-10.1); CREATININE 5.3 mg/dL (0.6-1.0); MAGNESIUM 1.3 mg/dL (1.8-2.4); PHOSPHORUS 4.2 mg/dL (2.5-4.9)
[2018-01-12 07:30] VITALS: BP 117/70
[2018-01-12 08:40] LABS: ABSOLUTE NEUTROPHILS 25.6 thou/uL (1.4-8.2); ANISOCYTOSIS 2+; HYPOCHROMASIA 3+; MICROCYTES 2+; NUCLEATED RBCS 1 /100WBC; PLATELET ESTIMATE INCREASED; POIKILOCYTOSIS 1+; TARGET CELLS 1+
[2018-01-12 11:29] LABS: PROTIME 29.7 Seconds (9.3-11.4)
[2018-01-12 21:45] VITALS: BP 125/76
[2018-01-13 07:02] LABS: HEMATOCRIT 21.4 % (37.0-47.0); HEMOGLOBIN 7.1 gm/dL (12.0-15.0); MCHC 33.4 g/dL (28.0-37.0); PLATELET COUNT 420 thou/uL (150-400); RBC 2.64 mil/uL (4.20-5.00); RDW 23.1 % (10.5-14.5); WBC 33.7 thou/uL (4.0-11.0)
[2018-01-13 07:23] LABS: ALBUMIN 3.4 g/dL (3.4-5.0); CALCIUM 8.5 mg/dL (8.5-10.1); CREATININE 4.9 mg/dL (0.6-1.0); PHOSPHORUS 3.7 mg/dL (2.5-4.9); POTASSIUM 5.3 mmol/L (3.5-5.1)
[2018-01-13 07:38] VITALS: BP 120/72
[2018-01-13 08:03] LABS: ABSOLUTE NEUTROPHILS 31.3 thou/uL (1.4-8.2); ANISOCYTOSIS 2+; HYPOCHROMASIA 2+; PLATELET ESTIMATE INCREASED; POIKILOCYTOSIS 2+; POLYCHROMASIA 1+; TARGET CELLS 2+
[2018-01-13 08:04] LABS: MICROCYTES 2+
[2018-01-13 08:21] LABS: INR 1.9
[2018-01-13 20:03] VITALS: BP 142/78
[2018-01-14 06:16] LABS: HEMOGLOBIN 6.8 gm/dL (12.0-15.0); WBC 34.7 thou/uL (4.0-11.0)
[2018-01-14 06:17] LABS: MCH 27.5 pg (26.0-34.0); MCHC 33.7 g/dL (28.0-37.0); MCV 81.6 fL (80.0-100.0); PLATELET COUNT 369 thou/uL (150-400); RBC 2.46 mil/uL (4.20-5.00); RDW 22.4 % (10.5-14.5)
[2018-01-14 06:26] LABS: INR 1.7; PROTIME 17.4 Seconds (9.3-11.4)
[2018-01-14 06:30] LABS: ALBUMIN 3.1 g/dL (3.4-5.0); CALCIUM 8.2 mg/dL (8.5-10.1); CREATININE 4.5 mg/dL (0.6-1.0); PHOSPHORUS 3.4 mg/dL (2.5-4.9)
[2018-01-14 06:31] LABS: POTASSIUM 4.2 mmol/L (3.5-5.1)
[2018-01-14 08:36] LABS: ABSOLUTE NEUTROPHILS 26.7 thou/uL (1.4-8.2); NUCLEATED RBCS 1 /100WBC
[2018-01-14 08:39] LABS: ANISOCYTOSIS 3+; HYPOCHROMASIA 3+; MICROCYTES 1+; POIKILOCYTOSIS 3+; POLYCHROMASIA 2+; SCHISTOCYTES 1+; TARGET CELLS 2+
[2018-01-14 21:02] VITALS: BP 142/84
[2018-01-15 06:27] LABS: INR 1.6; PROTIME 16.7 Seconds (9.3-11.4)
[2018-01-15 09:22] VITALS: BP 122/66
[2018-01-15 19:50] VITALS: BP 143/74
[2018-01-16 05:51] LABS: INR 1.8
[2018-01-16 05:56] LABS: CALCIUM 8.1 mg/dL (8.5-10.1); CREATININE 3.8 mg/dL (0.6-1.0); PHOSPHORUS 4.1 mg/dL (2.5-4.9)
[2018-01-16 09:47] VITALS: BP 143/74
[2018-01-16] MEDS ORDERED: PREDNISONE 20 M20 M1 PO (10:05)
[2018-01-16] MEDS ORDERED: COUMADIN 3 MG TA3 M1 PO (10:05)
[2018-01-16] MEDS ORDERED: FIRVANQ50 MG/1 ML PO (10:05)
[2018-01-16] MEDS ORDERED: DILAUDID 2 MG TA2 MG PO (10:11)
[2018-01-16] MEDS ORDERED: RENVELA800 MG PO (10:16)
[2018-01-16 10:52] VITALS: BP 143/74
[2018-01-16 13:30] VITALS: BP 143/74
[2018-01-16 13:34] VITALS: BP 143/74
== END 2018-01-16 14:49 | disposition home health service (06) | DRG 91 ==
LOC: ENTRNSPT 01-16 14:00 → EDTRNSPTSTS 01-16 14:07
PROVIDERS: Hospitalist; Internal Medicine Hematology & Oncology; Internal Medicine Nephrology; Nurse Practitioner; Nurse Practitioner Family; Specialist
PROC: 02HV33Z Insertion of Infusion Device into Superior Vena Cava, Percutaneous Approach (ICD-10-PCS; 2018-01-10)
PROC: 30233N1 Transfusion of Nonautologous Red Blood Cells into Peripheral Vein, Percutaneous Approach (ICD-10-PCS; principal; 2018-01-11)
DX: G72.81 Critical illness myopathy (principal); I26.99 Other pulmonary embolism without acute cor pulmonale; J18.9 Pneumonia, unspecified organism; K72.00 Acute and subacute hepatic failure without coma; J96.01 Acute respiratory failure with hypoxia; D57.01 Hb-SS disease with acute chest syndrome; A04.72 Enterocolitis due to Clostridium difficile, not specified as recurrent; E87.2 Acidosis; N17.9 Acute kidney failure, unspecified; D63.8 Anemia in other chronic diseases classified elsewhere; N14.0 Analgesic nephropathy; T39.395A Adverse effect of other nonsteroidal anti-inflammatory drugs [NSAID], initial encounter; E86.0 Dehydration; Y95 Nosocomial condition; I95.9 Hypotension, unspecified; F41.9 Anxiety disorder, unspecified; G89.29 Other chronic pain; F17.210 Nicotine dependence, cigarettes, uncomplicated; Z90.81 Acquired absence of spleen; Z90.49 Acquired absence of other specified parts of digestive tract; Z86.718 Personal history of other venous thrombosis and embolism; Z88.6 Allergy status to analgesic agent
CPT/HCPCS: 10112

== ENCOUNTER 2018-03-20 08:13 | Emergency (ER) | payer OTHER ==
[~2018-03-20] VITALS: Ht 157.5 cm; Wt 74.4 kg
[~2018-03-20 08:13] MED LIST changes: +COUMADIN 3 MG TA3 M1 PO; +ENOXAPARIN80 MG/0.1 SUBQ; +PREDNISONE 20 M20 M1 PO; +SLOW-MAG64 M1 PO
[2018-03-20] MEDS ORDERED: FOLIC ACID1 MG PO (08:29)
[2018-03-20] MEDS ORDERED: NORCO 5-325 TA1 EACH PO (08:30)
[2018-03-20] MEDS ORDERED: XARELTO20 MG PO (08:30)
[2018-03-20 09:01] LABS: URINE BILIRUBIN NEGATIVE (Negative); URINE BLOOD NEGATIVE (Negative); URINE CLARITY SL CLOUDY; URINE COLOR YELLOW; URINE GLUCOSE-RANDOM* NEGATIVE (Negative); URINE KETONES NEGATIVE (Negative); URINE NITRITE-REFLEX NEGATIVE (Negative); URINE PROTEIN (DIPSTICK) NEGATIVE (Negative); URINE UROBILINOGEN 0.2 E.U./dl (0.2-1.0)
[2018-03-20 09:02] LABS: URINE LEUKOCYTES-REFLEX 2+ (Negative)
[2018-03-20 09:15] LABS: SQUAMOUS >10 Many /LPF (0-3)
[2018-03-20 09:16] LABS: CASTS None Seen /LPF (None Seen); CRYSTALS None Seen /LPF (None Seen); URINE RBC 0-2 Rare /HPF (0-2)
[2018-03-20 09:37] LABS: ABSOLUTE RETIC COUNT 0.1316 10^6/uL; HEMATOCRIT 29.7 % (37.0-47.0); HEMOGLOBIN 9.9 gm/dL (12.0-15.0); MCH 25.9 pg (26.0-34.0); MCHC 33.2 g/dL (28.0-37.0); MCV 77.8 fL (80.0-100.0); OBSERVED RETIC COUNT 3.45 % (0.6-2.6); PLATELET COUNT 426 thou/uL (150-400); RBC 3.82 mil/uL (4.20-5.00); RDW 17.4 % (10.5-14.5); WBC 17.6 thou/uL (4.0-11.0)
[2018-03-20 09:41] LABS: CALCIUM 9.6 mg/dL (8.5-10.1); CREATININE 0.9 mg/dL (0.6-1.0); POTASSIUM 3.8 mmol/L (3.5-5.1)
[2018-03-20 09:47] LABS: ALBUMIN 3.2 g/dL (3.4-5.0); TOTAL BILIRUBIN 0.4 mg/dL (<0.1-1.0); TOTAL PROTEIN 6.9 g/dL (6.4-8.2)
[2018-03-20 10:23] LABS: ABSOLUTE NEUTROPHILS 10.2 thou/uL (1.4-8.2); ANISOCYTOSIS 2+; HYPOCHROMASIA 2+; PLATELET ESTIMATE INCREASED; TARGET CELLS 2+
[2018-03-20 11:36] LABS: URINE BILIRUBIN NEGATIVE (Negative); URINE BLOOD NEGATIVE (Negative); URINE CLARITY CLEAR; URINE COLOR YELLOW; URINE GLUCOSE-RANDOM* NEGATIVE (Negative); URINE KETONES NEGATIVE (Negative); URINE NITRITE-REFLEX NEGATIVE (Negative); URINE PROTEIN (DIPSTICK) NEGATIVE (Negative); URINE UROBILINOGEN 0.2 E.U./dl (0.2-1.0)
[2018-03-20 11:37] LABS: URINE LEUKOCYTES-REFLEX TRACE (Negative)
[2018-03-20] MEDS ORDERED: DILAUDID 2 MG TA2 MG PO (12:58)
[2018-03-20] MEDS ORDERED: SENNA-DOCUSATE1 EACH PO (12:58)
== END 2018-03-20 13:30 | disposition home or self-care (01) ==
LOC: ER 08:13
PROVIDERS: Emergency Medicine
DX: D57.00 Hb-SS disease with crisis, unspecified (principal); Z87.01 Personal history of pneumonia (recurrent); N19 Unspecified kidney failure; Z90.49 Acquired absence of other specified parts of digestive tract; Z86.718 Personal history of other venous thrombosis and embolism; J96.90 Respiratory failure, unspecified, unspecified whether with hypoxia or hypercapnia; F17.210 Nicotine dependence, cigarettes, uncomplicated; Z88.5 Allergy status to narcotic agent; Z91.041 Radiographic dye allergy status

== ENCOUNTER 2018-03-24 13:09 | Emergency (ER) | payer OTHER ==
[~2018-03-24] VITALS: Ht 157.5 cm; Wt 74.4 kg
[~2018-03-24 13:09] MED LIST changes: +SENNA-DOCUSATE1 EACH PO
[2018-03-24 13:51] LABS: URINE BILIRUBIN NEGATIVE (Negative); URINE BLOOD NEGATIVE (Negative); URINE CLARITY CLEAR; URINE COLOR YELLOW; URINE GLUCOSE-RANDOM* NEGATIVE (Negative); URINE KETONES NEGATIVE (Negative); URINE LEUKOCYTES-REFLEX NEGATIVE (Negative); URINE NITRITE-REFLEX NEGATIVE (Negative); URINE PROTEIN (DIPSTICK) NEGATIVE (Negative); URINE UROBILINOGEN 0.2 E.U./dl (0.2-1.0)
[2018-03-24 14:36] LABS: MCH 25.8 pg (26.0-34.0); MCHC 33.3 g/dL (28.0-37.0)
[2018-03-24 14:38] LABS: HEMATOCRIT 33.1 % (37.0-47.0); MCV 77.5 fL (80.0-100.0); PLATELET COUNT 466 thou/uL (150-400); RBC 4.26 mil/uL (4.20-5.00); RDW 17.2 % (10.5-14.5); WBC 16.9 thou/uL (4.0-11.0)
[2018-03-24 15:00] LABS: CALCIUM 9.6 mg/dL (8.5-10.1); POTASSIUM 3.8 mmol/L (3.5-5.1)
[2018-03-24 15:03] LABS: ALBUMIN 3.7 g/dL (3.4-5.0); TOTAL BILIRUBIN 0.6 mg/dL (<0.1-1.0); TOTAL PROTEIN 7.5 g/dL (6.4-8.2)
[2018-03-24 15:50] LABS: ABSOLUTE NEUTROPHILS 7.3 thou/uL (1.4-8.2)
[2018-03-24 15:51] LABS: ANISOCYTOSIS 1+; LARGE PLATELETS RARE; PLATELET ESTIMATE INCREASED; POLYCHROMASIA SLIGHT
[2018-03-24 15:52] LABS: SCHISTOCYTES FEW
[2018-03-24] MEDS ORDERED: PRILOSEC 20 MG20 MG PO (17:31)
[2018-03-24] MEDS ORDERED: PHENERGAN 25 MG25 M1 PO (17:31)
== END 2018-03-24 17:46 | disposition home or self-care (01) ==
LOC: ER 13:09
PROVIDERS: Physician Assistant
DX: R10.84 Generalized abdominal pain (principal); R11.2 Nausea with vomiting, unspecified; D57.1 Sickle-cell disease without crisis; F17.210 Nicotine dependence, cigarettes, uncomplicated; Z90.49 Acquired absence of other specified parts of digestive tract; Z86.718 Personal history of other venous thrombosis and embolism; Z86.711 Personal history of pulmonary embolism; Z87.01 Personal history of pneumonia (recurrent); Z88.5 Allergy status to narcotic agent

== ENCOUNTER 2018-03-25 12:26 | Inpatient (IN) | payer OTHER ==
[~2018-03-25] VITALS: Ht 157.5 cm; Wt 78.0 kg
--- NOTE | ~2018-03-25 | EKG ---
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 : 1980 Requested By: Ruthy Bassett Order Number: [id number] MD: Mihcael Mcmillan Measurements Intervals [place] Rate: 72 P: 44 DE: 141 QRS: 18 QRSD: 89 T: 2 QT: 414 QTc: 454 Interpretive Statements Sinus rhythm Consider left atrial enlargement Nonspecific T abnormalities, anterior leads Compared to ECG 12/21/2017 09:24:21 T-wave abnormality now present ST (T wave) deviation no longer present Electronically Signed On 03-26-2018 16:50:57 CDT by Michael Mcmillan [email or web address] <ELECTRONICALLY SIGNED> By: Michael Mcmillan MD 03/26/18 1650 1323 1323 Michael Mcmillan MD /EPI
[~2018-03-25 12:26] MED LIST changes: +PRILOSEC 20 MG20 MG PO
[2018-03-25 12:33] VITALS: BP 139/56
[2018-03-25 12:57] LABS: URINE BILIRUBIN NEGATIVE (Negative); URINE BLOOD NEGATIVE (Negative); URINE CLARITY CLEAR; URINE COLOR YELLOW; URINE GLUCOSE-RANDOM* NEGATIVE (Negative); URINE KETONES NEGATIVE (Negative); URINE LEUKOCYTES-REFLEX NEGATIVE (Negative); URINE NITRITE-REFLEX NEGATIVE (Negative); URINE PROTEIN (DIPSTICK) NEGATIVE (Negative); URINE UROBILINOGEN 0.2 E.U./dl (0.2-1.0)
[2018-03-25 13:09] LABS: RDW 17.6 % (10.5-14.5)
[2018-03-25 13:10] LABS: CALCIUM 8.9 mg/dL (8.5-10.1); CREATININE 1.1 mg/dL (0.6-1.0); HEMOGLOBIN 10.4 gm/dL (12.0-15.0); MCH 25.2 pg (26.0-34.0); MCHC 32.5 g/dL (28.0-37.0); MCV 77.7 fL (80.0-100.0); PLATELET COUNT 457 thou/uL (150-400); POTASSIUM 3.6 mmol/L (3.5-5.1); RBC 4.13 mil/uL (4.20-5.00); WBC 16.8 thou/uL (4.0-11.0)
[2018-03-25 13:23] LABS: ALBUMIN 3.5 g/dL (3.4-5.0); TOTAL BILIRUBIN 0.5 mg/dL (<0.1-1.0); TOTAL PROTEIN 7.2 g/dL (6.4-8.2)
[2018-03-25 13:57] LABS: ABSOLUTE NEUTROPHILS 5.7 thou/uL (1.4-8.2); NUCLEATED RBCS 1 /100WBC
[2018-03-25 13:58] LABS: ANISOCYTOSIS 2+; POLYCHROMASIA OCCASIONAL; TARGET CELLS FEW
[2018-03-25 15:15] VITALS: BP 139/56
[2018-03-25 16:29] VITALS: BP 139/56
[2018-03-25 17:00] VITALS: BP 94/41
[2018-03-25 20:13] VITALS: BP 97/51
[2018-03-26 05:36] LABS: HEMATOCRIT 25.8 % (37.0-47.0); HEMOGLOBIN 8.7 gm/dL (12.0-15.0); MCH 26.1 pg (26.0-34.0); MCHC 33.9 g/dL (28.0-37.0); MCV 77.2 fL (80.0-100.0); RBC 3.34 mil/uL (4.20-5.00); RDW 17.3 % (10.5-14.5); WBC 14.5 thou/uL (4.0-11.0)
[2018-03-26 05:51] LABS: CALCIUM 8.2 mg/dL (8.5-10.1); CREATININE 0.9 mg/dL (0.6-1.0); POTASSIUM 4.2 mmol/L (3.5-5.1)
[2018-03-26 08:09] VITALS: BP 85/46
[2018-03-26] MEDS ORDERED: NORCO 5-325 TA1 EACH PO (12:35)
[2018-03-26 13:02] VITALS: BP 85/46
== END 2018-03-26 13:45 | disposition home or self-care (01) | DRG 392 ==
LOC: ER 12:26 → EROBS 15:09 → 4W 16:58
PROVIDERS: Hospitalist; Nurse Practitioner Family
DX: K52.9 Noninfective gastroenteritis and colitis, unspecified (principal); F17.210 Nicotine dependence, cigarettes, uncomplicated; D57.1 Sickle-cell disease without crisis; Z90.81 Acquired absence of spleen; Z90.49 Acquired absence of other specified parts of digestive tract; Z86.718 Personal history of other venous thrombosis and embolism; Z88.6 Allergy status to analgesic agent; Z91.041 Radiographic dye allergy status; Z79.899 Other long term (current) drug therapy; Z28.21 Immunization not carried out because of patient refusal
CPT/HCPCS: 10045

== ENCOUNTER 2018-04-04 21:11 | Emergency (ER) | payer OTHER ==
[~2018-04-04] VITALS: Ht 157.5 cm; Wt 76.7 kg
--- NOTE | ~2018-04-04 | EKG ---
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
[2018-04-04 22:09] LABS: HEMOGLOBIN 8.8 gm/dL (12.0-15.0); WBC 18.5 thou/uL (4.0-11.0)
[2018-04-04 22:11] LABS: HEMATOCRIT 25.9 % (37.0-47.0); MCH 26.4 pg (26.0-34.0); MCHC 34.1 g/dL (28.0-37.0); MCV 77.4 fL (80.0-100.0); PLATELET COUNT 422 thou/uL (150-400); RBC 3.35 mil/uL (4.20-5.00); RDW 17.4 % (10.5-14.5)
[2018-04-04 22:21] LABS: ANION GAP 11 mmol/L (7-16); BUN 6 mg/dL (7-18); CALCIUM 8.4 mg/dL (8.5-10.1); CHLORIDE 108 mmol/L (98-107); CO2 22 mmol/L (21-32); GLUCOSE 94 mg/dL (74-106); POTASSIUM 3.5 mmol/L (3.5-5.1); SODIUM 141 mmol/L (136-145); TROPONIN-I <0.06 ng/mL (<0.06)
[2018-04-04 22:34] LABS: ABSOLUTE NEUTROPHILS 12.4 thou/uL (1.4-8.2); ATYPICAL LYMPHS 1 %
[2018-04-04 22:35] LABS: ANISOCYTOSIS 2+; HYPOCHROMASIA 2+; MICROCYTES 2+
[2018-04-04 22:36] LABS: TARGET CELLS 2+
[2018-04-04 22:37] LABS: POLYCHROMASIA SLIGHT
== END 2018-04-05 02:49 | disposition home or self-care (01) ==
LOC: ER 21:11
PROVIDERS: Emergency Medicine
DX: R07.1 Chest pain on breathing (principal); D72.829 Elevated white blood cell count, unspecified; F17.210 Nicotine dependence, cigarettes, uncomplicated; Z88.5 Allergy status to narcotic agent; Z91.041 Radiographic dye allergy status; Z91.018 Allergy to other foods; Z90.81 Acquired absence of spleen; Z90.49 Acquired absence of other specified parts of digestive tract; Z86.718 Personal history of other venous thrombosis and embolism; Z86.2 Personal history of diseases of the blood and blood-forming organs and certain disorders involving the immune mechanism

== ENCOUNTER 2018-04-12 11:25 | Emergency (ER) | payer OTHER ==
[~2018-04-12] VITALS: Ht 157.5 cm; Wt 63.5 kg
[2018-04-12 12:17] LABS: HEMATOCRIT 28.7 % (37.0-47.0); HEMOGLOBIN 9.7 gm/dL (12.0-15.0)
[2018-04-12 12:19] LABS: MCH 25.9 pg (26.0-34.0); MCHC 33.9 g/dL (28.0-37.0); MCV 76.4 fL (80.0-100.0); PLATELET COUNT 539 thou/uL (150-400); RBC 3.75 mil/uL (4.20-5.00); RDW 17.1 % (10.5-14.5)
[2018-04-12 12:25] LABS: ANION GAP 9 mmol/L (7-16); BUN 6 mg/dL (7-18); CALCIUM 9.7 mg/dL (8.5-10.1); CHLORIDE 107 mmol/L (98-107); CO2 24 mmol/L (21-32); CREATININE 0.9 mg/dL (0.6-1.0); GLUCOSE 89 mg/dL (74-106); POTASSIUM 3.8 mmol/L (3.5-5.1); SODIUM 140 mmol/L (136-145)
[2018-04-12 12:33] LABS: TROPONIN-I <0.06 ng/mL (<0.06)
[2018-04-12 12:45] LABS: ABSOLUTE NEUTROPHILS 8.4 thou/uL (1.4-8.2); NUCLEATED RBCS 1 /100WBC
[2018-04-12 13:19] LABS: POLYCHROMASIA OCCASIONAL
[2018-04-12 13:20] LABS: ANISOCYTOSIS 1+; POIKILOCYTOSIS SLIGHT
[2018-04-12 13:21] LABS: TARGET CELLS 1+
[2018-04-12 16:20] VITALS: BP 119/78
== END 2018-04-12 16:21 | disposition home or self-care (01) ==
LOC: ER 11:25
PROVIDERS: Emergency Medicine
DX: R06.02 Shortness of breath (principal); R07.89 Other chest pain; F17.210 Nicotine dependence, cigarettes, uncomplicated; D57.1 Sickle-cell disease without crisis; Z90.49 Acquired absence of other specified parts of digestive tract; Z86.718 Personal history of other venous thrombosis and embolism; Z87.01 Personal history of pneumonia (recurrent); Z86.711 Personal history of pulmonary embolism; Z88.5 Allergy status to narcotic agent; Z91.041 Radiographic dye allergy status; Z88.8 Allergy status to other drugs, medicaments and biological substances

== ENCOUNTER 2018-04-24 13:40 | Emergency (ER) | payer OTHER ==
[~2018-04-24] VITALS: Ht 157.5 cm; Wt 76.7 kg
[2018-04-24] MEDS ORDERED: NORCO 5-325 TA1 EACH PO (16:12)
[2018-04-24] MEDS ORDERED: DILAUDID 2 MG TA2 MG PO ×2 (16:12→16:41)
[2018-04-24 17:12] VITALS: BP 97/51
== END 2018-04-24 17:13 | disposition home or self-care (01) ==
LOC: ER 13:40
DX: D57.00 Hb-SS disease with crisis, unspecified (principal); F17.210 Nicotine dependence, cigarettes, uncomplicated; Z90.81 Acquired absence of spleen; Z90.49 Acquired absence of other specified parts of digestive tract; Z86.718 Personal history of other venous thrombosis and embolism; Z86.2 Personal history of diseases of the blood and blood-forming organs and certain disorders involving the immune mechanism; Z88.5 Allergy status to narcotic agent; Z91.041 Radiographic dye allergy status; Z91.018 Allergy to other foods

== ENCOUNTER 2018-05-02 10:07 | Emergency (ER) | payer OTHER ==
[~2018-05-02] VITALS: Ht 157.5 cm; Wt 76.7 kg
--- NOTE | ~2018-05-02 | EKG ---
[place] [address] [place] [address] ELECTROCARDIOGRAM REPORT Name: ROMARIO LBEDSOE Room #: DEP [place]#: [id number] Admission: 05/02/18 Attend Phys: Discharge: 05/02/18 Date of : 78 Report #: [id number] THIS REPORT FOR: //name// [facility] ED Test Date: 2018-05-02 Test Time: 10:40:52 Pat Name: ROMARIO BLEDSOE Department: Room: Gender: F Clerical Transcriber: JAY : 1980 Requested By: Christophe Bates Order Number: [id number] MD: Lasha Lara Measurements Intervals [place] Rate: 109 P: 46 MD: 143 QRS: 15 QRSD: 83 T: -27 QT: 319 QTc: 430 Interpretive Statements Sinus tachycardia Nonspecific ST and T wave abnormality Compared to ECG 04/12/2018 12:25:44 no significant change was found Electronically Signed On 05-03-2018 8:38:23 RHEOSTAT ASSEMBLER by Lasha Lara [email or web address] <ELECTRONICALLY SIGNED> By: Lasha Lara MD, [facility] 05/03/18 0838 1040 1040 Lasha Lara MD, FACC /EPI
[2018-05-02 10:42] LABS: URINE BILIRUBIN NEGATIVE (Negative); URINE BLOOD 3+ (Negative); URINE CLARITY SL CLOUDY; URINE COLOR YELLOW; URINE GLUCOSE-RANDOM* NEGATIVE (Negative); URINE KETONES NEGATIVE (Negative); URINE PROTEIN (DIPSTICK) NEGATIVE (Negative); URINE UROBILINOGEN 0.2 E.U./dl (0.2-1.0)
[2018-05-02 10:43] LABS: URINE LEUKOCYTES-REFLEX 1+ (Negative); URINE NITRITE-REFLEX POSITIVE (Negative)
[2018-05-02 10:48] LABS: CASTS None Seen /LPF (None Seen); CRYSTALS None Seen /LPF (None Seen); SQUAMOUS 0-3 Few /LPF (0-3); URINE WBC-REFLEX 6-15 Few /HPF (0-5)
[2018-05-02 11:01] LABS: HEMATOCRIT 28.8 % (37.0-47.0); HEMOGLOBIN 9.6 gm/dL (12.0-15.0); MCH 24.8 pg (26.0-34.0); MCHC 33.3 g/dL (28.0-37.0); MCV 74.7 fL (80.0-100.0); PLATELET COUNT 420 thou/uL (150-400); RBC 3.86 mil/uL (4.20-5.00); RDW 17.4 % (10.5-14.5); WBC 28.8 thou/uL (4.0-11.0)
[2018-05-02 11:11] LABS: ANION GAP 8 mmol/L (7-16); BUN 6 mg/dL (7-18); CALCIUM 9.2 mg/dL (8.5-10.1); CHLORIDE 106 mmol/L (98-107); CO2 23 mmol/L (21-32); CREATININE 0.9 mg/dL (0.6-1.0); GLUCOSE 106 mg/dL (74-106); POTASSIUM 3.6 mmol/L (3.5-5.1); SODIUM 137 mmol/L (136-145)
[2018-05-02 11:19] LABS: ALBUMIN 3.3 g/dL (3.4-5.0); APTT 41.6 Seconds (24.5-32.8); D-DIMER 0.67 ug/mLFEU (0.19-0.50); INR 1.2; MAGNESIUM 1.9 mg/dL (1.8-2.4); PROTIME 12.7 Seconds (9.3-11.4); SGOT 17 U/L (15-37); SGPT 14 U/L (30-65); TOTAL BILIRUBIN 0.8 mg/dL (<0.1-1.0); TOTAL PROTEIN 7.6 g/dL (6.4-8.2); TROPONIN-I <0.06 ng/mL (<0.06)
[2018-05-02 11:54] LABS: ANISOCYTOSIS 1+; PLATELET ESTIMATE INCREASED; TARGET CELLS 2+
[2018-05-02] MEDS ORDERED: AUGMENTIN 500-1 EACH PO (13:56)
[2018-05-02 14:05] VITALS: BP 111/63
== END 2018-05-02 14:05 | disposition home or self-care (01) ==
LOC: ER 10:07
PROVIDERS: Emergency Medicine
DX: J20.9 Acute bronchitis, unspecified (principal); D72.829 Elevated white blood cell count, unspecified; J06.9 Acute upper respiratory infection, unspecified; J04.0 Acute laryngitis; D57.1 Sickle-cell disease without crisis; Z86.711 Personal history of pulmonary embolism; Z88.5 Allergy status to narcotic agent; Z91.041 Radiographic dye allergy status; Z91.018 Allergy to other foods; Z90.49 Acquired absence of other specified parts of digestive tract; Z86.718 Personal history of other venous thrombosis and embolism; Z86.2 Personal history of diseases of the blood and blood-forming organs and certain disorders involving the immune mechanism; Z90.81 Acquired absence of spleen

== ENCOUNTER 2018-05-09 23:49 | Emergency (ER) | payer OTHER ==
[~2018-05-09] VITALS: Ht 157.5 cm; Wt 73.5 kg
[~2018-05-09 23:49] MED LIST changes: +AUGMENTIN 500-1 EACH PO
[2018-05-10 00:17] LABS: URINE BILIRUBIN NEGATIVE (Negative); URINE BLOOD NEGATIVE (Negative); URINE CLARITY CLEAR; URINE COLOR YELLOW; URINE GLUCOSE-RANDOM* NEGATIVE (Negative); URINE KETONES NEGATIVE (Negative); URINE LEUKOCYTES-REFLEX NEGATIVE (Negative); URINE NITRITE-REFLEX NEGATIVE (Negative); URINE PROTEIN (DIPSTICK) NEGATIVE (Negative); URINE SPECIFIC GRAVITY 1.015 (1.005-1.035); URINE UROBILINOGEN 0.2 E.U./dl (0.2-1.0)
[2018-05-10 00:45] LABS: CALCIUM 8.8 mg/dL (8.5-10.1); POTASSIUM 3.3 mmol/L (3.5-5.1)
[2018-05-10 00:50] LABS: HEMATOCRIT 29.1 % (37.0-47.0); HEMOGLOBIN 9.8 gm/dL (12.0-15.0); MCH 25.5 pg (26.0-34.0); MCHC 33.7 g/dL (28.0-37.0); MCV 75.6 fL (80.0-100.0); PLATELET COUNT 488 thou/uL (150-400); RBC 3.84 mil/uL (4.20-5.00); RDW 18.9 % (10.5-14.5); WBC 17.2 thou/uL (4.0-11.0)
[2018-05-10 00:51] LABS: ALBUMIN 3.1 g/dL (3.4-5.0); TOTAL BILIRUBIN 0.4 mg/dL (<0.1-1.0); TOTAL PROTEIN 6.7 g/dL (6.4-8.2)
[2018-05-10 01:02] LABS: ABSOLUTE RETIC COUNT 0.1702 10^6/uL; OBSERVED RETIC COUNT 4.37 % (0.6-2.6)
[2018-05-10 01:40] LABS: ABSOLUTE NEUTROPHILS 6.2 thou/uL (1.4-8.2); ANISOCYTOSIS 2+; NUCLEATED RBCS 2 /100WBC
[2018-05-10 01:41] LABS: POIKILOCYTOSIS 2+; TARGET CELLS 2+
[2018-05-10] MEDS ORDERED: DILAUDID 2 MG TA2 MG PO (01:48)
[2018-05-10 01:51] LABS: LARGE PLATELETS SEVERAL
[2018-05-10 02:05] VITALS: BP 93/52
== END 2018-05-10 02:05 | disposition home or self-care (01) ==
LOC: ER 23:49
PROVIDERS: Emergency Medicine
DX: D57.00 Hb-SS disease with crisis, unspecified (principal); Z90.81 Acquired absence of spleen; Z88.5 Allergy status to narcotic agent; Z91.041 Radiographic dye allergy status; Z91.018 Allergy to other foods; Z90.49 Acquired absence of other specified parts of digestive tract; Z86.718 Personal history of other venous thrombosis and embolism; Z86.2 Personal history of diseases of the blood and blood-forming organs and certain disorders involving the immune mechanism

== ENCOUNTER 2018-05-15 10:37 | Emergency (ER) | payer OTHER ==
[~2018-05-15] VITALS: Ht 157.5 cm; Wt 73.5 kg
[2018-05-15 13:59] VITALS: BP 96/41
== END 2018-05-15 14:14 | disposition home or self-care (01) ==
LOC: ER 10:37
DX: D57.1 Sickle-cell disease without crisis (principal); R19.7 Diarrhea, unspecified; R51 Headache; M54.5 Low back pain; Z88.5 Allergy status to narcotic agent; Z91.018 Allergy to other foods; Z91.041 Radiographic dye allergy status; Z90.49 Acquired absence of other specified parts of digestive tract; Z86.718 Personal history of other venous thrombosis and embolism; Z86.2 Personal history of diseases of the blood and blood-forming organs and certain disorders involving the immune mechanism

== ENCOUNTER 2018-05-20 23:35 | Emergency (ER) | payer OTHER ==
[~2018-05-20] VITALS: Ht 157.5 cm; Wt 72.6 kg
[2018-05-21 00:11] LABS: URINE BILIRUBIN NEGATIVE (Negative); URINE BLOOD NEGATIVE (Negative); URINE CLARITY CLEAR; URINE COLOR YELLOW; URINE GLUCOSE-RANDOM* NEGATIVE (Negative); URINE KETONES NEGATIVE (Negative); URINE LEUKOCYTES-REFLEX NEGATIVE (Negative); URINE NITRITE-REFLEX NEGATIVE (Negative); URINE PROTEIN (DIPSTICK) NEGATIVE (Negative); URINE UROBILINOGEN 0.2 E.U./dl (0.2-1.0)
[2018-05-21 00:32] LABS: HEMOGLOBIN 10.3 gm/dL (12.0-15.0); RBC 4.13 mil/uL (4.20-5.00)
[2018-05-21 00:34] LABS: HEMATOCRIT 31.5 % (37.0-47.0); MCH 24.9 pg (26.0-34.0); MCHC 32.7 g/dL (28.0-37.0); MCV 76.3 fL (80.0-100.0); PLATELET COUNT 432 thou/uL (150-400); RDW 18.9 % (10.5-14.5); WBC 11.7 thou/uL (4.0-11.0)
[2018-05-21 00:42] LABS: CREATININE 0.9 mg/dL (0.6-1.0); POTASSIUM 3.7 mmol/L (3.5-5.1)
[2018-05-21 00:47] LABS: OBSERVED RETIC COUNT 2.06 % (0.6-2.6)
[2018-05-21 00:48] LABS: ALBUMIN 3.3 g/dL (3.4-5.0); DIRECT BILIRUBIN 0.1 mg/dL (<0.1-0.3); TOTAL BILIRUBIN 0.5 mg/dL (<0.1-1.0); TOTAL PROTEIN 6.8 g/dL (6.4-8.2)
[2018-05-21 01:18] LABS: ABSOLUTE NEUTROPHILS 3.5 thou/uL (1.4-8.2); NUCLEATED RBCS 2 /100WBC
[2018-05-21 01:21] LABS: ANISOCYTOSIS 2+; PLATELET ESTIMATE NORMAL; POLYCHROMASIA 1+; SCHISTOCYTES FEW; TARGET CELLS 2+; TEARDROPS FEW
[2018-05-21 01:22] LABS: LARGE PLATELETS SEVERAL
[2018-05-21 04:07] VITALS: BP 97/59
[2018-05-23 14:10] LABS: HGB SOLUBILITY Positive (Negative); Hgb C 44.7 % (0.0); Hgb S 50.6 % (0.0)
== END 2018-05-21 04:10 | disposition home or self-care (01) ==
LOC: ER 23:35
PROVIDERS: Emergency Medicine
DX: D57.00 Hb-SS disease with crisis, unspecified (principal); F17.200 Nicotine dependence, unspecified, uncomplicated; Z88.6 Allergy status to analgesic agent; Z91.041 Radiographic dye allergy status; Z91.018 Allergy to other foods; Z90.49 Acquired absence of other specified parts of digestive tract; Z86.718 Personal history of other venous thrombosis and embolism; Z87.01 Personal history of pneumonia (recurrent); Z86.711 Personal history of pulmonary embolism; Z86.2 Personal history of diseases of the blood and blood-forming organs and certain disorders involving the immune mechanism

== ENCOUNTER 2018-05-26 07:30 | Emergency (ER) | payer OTHER ==
[~2018-05-26] VITALS: Ht 157.5 cm; Wt 74.4 kg
[2018-05-26 07:48] LABS: URINE BILIRUBIN NEGATIVE (Negative); URINE BLOOD NEGATIVE (Negative); URINE CLARITY CLEAR; URINE COLOR YELLOW; URINE GLUCOSE-RANDOM* NEGATIVE (Negative); URINE KETONES NEGATIVE (Negative); URINE LEUKOCYTES-REFLEX NEGATIVE (Negative); URINE NITRITE-REFLEX NEGATIVE (Negative); URINE PROTEIN (DIPSTICK) NEGATIVE (Negative); URINE UROBILINOGEN 0.2 E.U./dl (0.2-1.0)
[2018-05-26 08:22] LABS: HEMATOCRIT 33.1 % (37.0-47.0); HEMOGLOBIN 10.8 gm/dL (12.0-15.0); MCV 76.3 fL (80.0-100.0); RBC 4.34 mil/uL (4.20-5.00); WBC 12.1 thou/uL (4.0-11.0)
[2018-05-26 08:23] LABS: MCHC 32.8 g/dL (28.0-37.0); PLATELET COUNT 439 thou/uL (150-400); RDW 19.3 % (10.5-14.5)
[2018-05-26 08:28] LABS: POTASSIUM 3.7 mmol/L (3.5-5.1)
[2018-05-26 08:58] LABS: ATYPICAL LYMPHS 7 %; NUCLEATED RBCS 2 /100WBC
[2018-05-26 09:01] LABS: ANISOCYTOSIS 2+; PLATELET ESTIMATE INCREASED
[2018-05-26 09:02] LABS: POIKILOCYTOSIS 2+; POLYCHROMASIA 1+; SCHISTOCYTES 1+; TARGET CELLS 2+
[2018-05-26 10:21] VITALS: BP 94/52
== END 2018-05-26 10:21 | disposition home or self-care (01) ==
LOC: ER 07:30
PROVIDERS: Emergency Medicine
DX: D57.00 Hb-SS disease with crisis, unspecified (principal); Z88.5 Allergy status to narcotic agent; Z91.018 Allergy to other foods; Z91.041 Radiographic dye allergy status; Z90.49 Acquired absence of other specified parts of digestive tract; Z86.718 Personal history of other venous thrombosis and embolism; Z86.2 Personal history of diseases of the blood and blood-forming organs and certain disorders involving the immune mechanism; Z90.81 Acquired absence of spleen

== ENCOUNTER 2018-06-07 07:24 | Emergency (ER) | payer OTHER ==
[~2018-06-07] VITALS: Ht 157.5 cm; Wt 72.6 kg
[2018-06-07] MEDS ORDERED: VENTOLIN HFA 1818 GM INH (07:31)
[2018-06-07 08:44] LABS: URINE BILIRUBIN NEGATIVE (Negative); URINE BLOOD NEGATIVE (Negative); URINE CLARITY CLEAR; URINE COLOR YELLOW; URINE GLUCOSE-RANDOM* NEGATIVE (Negative); URINE KETONES NEGATIVE (Negative); URINE LEUKOCYTES-REFLEX NEGATIVE (Negative); URINE NITRITE-REFLEX NEGATIVE (Negative); URINE PROTEIN (DIPSTICK) NEGATIVE (Negative)
[2018-06-07 10:29] VITALS: BP 96/62
== END 2018-06-07 10:30 | disposition home or self-care (01) ==
LOC: ER 07:24
PROVIDERS: Emergency Medicine
DX: D57.1 Sickle-cell disease without crisis (principal); Z88.5 Allergy status to narcotic agent; Z91.018 Allergy to other foods; Z91.041 Radiographic dye allergy status; Z90.49 Acquired absence of other specified parts of digestive tract; Z86.718 Personal history of other venous thrombosis and embolism; Z86.2 Personal history of diseases of the blood and blood-forming organs and certain disorders involving the immune mechanism; Z90.81 Acquired absence of spleen

== ENCOUNTER 2018-06-22 12:11 | Emergency (ER) | payer OTHER ==
[~2018-06-22] VITALS: Ht 157.5 cm; Wt 73.9 kg
[~2018-06-22 12:11] MED LIST changes: +VENTOLIN HFA 1818 GM INH
[2018-06-22 13:08] LABS: URINE CLARITY CLEAR; URINE COLOR YELLOW; URINE GLUCOSE-RANDOM* NEGATIVE (Negative); URINE PROTEIN (DIPSTICK) NEGATIVE (Negative)
[2018-06-22 13:09] LABS: URINE BILIRUBIN NEGATIVE (Negative); URINE BLOOD NEGATIVE (Negative); URINE KETONES NEGATIVE (Negative); URINE LEUKOCYTES-REFLEX 1+ (Negative); URINE NITRITE-REFLEX NEGATIVE (Negative); URINE UROBILINOGEN 0.2 E.U./dl (0.2-1.0)
[2018-06-22 13:17] LABS: BACTERIA-REFLEX >30 Many /HPF (None Seen); CASTS None Seen /LPF (None Seen); CRYSTALS None Seen /LPF (None Seen); SQUAMOUS 0-3 Few /LPF (0-3); URINE RBC 0-2 Rare /HPF (0-2); URINE WBC-REFLEX 6-15 Few /HPF (0-5)
[2018-06-22] MEDS ORDERED: KEFLEX500 M1 PO (14:12)
[2018-06-22 14:30] VITALS: BP 109/68
== END 2018-06-22 14:44 | disposition home or self-care (01) ==
LOC: ER 12:11
PROVIDERS: Emergency Medicine
DX: D57.00 Hb-SS disease with crisis, unspecified (principal); J06.9 Acute upper respiratory infection, unspecified; N39.0 Urinary tract infection, site not specified; Z88.5 Allergy status to narcotic agent; Z91.018 Allergy to other foods; Z91.041 Radiographic dye allergy status; Z90.81 Acquired absence of spleen; Z90.49 Acquired absence of other specified parts of digestive tract; Z86.718 Personal history of other venous thrombosis and embolism; Z86.2 Personal history of diseases of the blood and blood-forming organs and certain disorders involving the immune mechanism

== ENCOUNTER 2018-07-02 03:07 | Emergency (ER) | payer OTHER ==
[~2018-07-02] VITALS: Ht 157.5 cm; Wt 72.6 kg
[~2018-07-02 03:07] MED LIST changes: +KEFLEX500 M1 PO
[2018-07-02 05:38] LABS: CALCIUM 8.5 mg/dL (8.5-10.1); CREATININE 0.8 mg/dL (0.6-1.0); POTASSIUM 5.2 mmol/L (3.5-5.1)
[2018-07-02 06:09] LABS: ABSOLUTE NEUTROPHILS 7.5 thou/uL (1.4-8.2); BASOPHILS 1.4 % (0.0-2.0); EOSINOPHILS 2.9 % (0.0-3.0); HEMATOCRIT 31.4 % (37.0-47.0); HEMOGLOBIN 10.3 gm/dL (12.0-15.0); LYMPHOCYTES 32.5 % (24.0-44.0); MCH 24.3 pg (26.0-34.0); MCHC 32.8 g/dL (28.0-37.0); PLATELET COUNT 482 thou/uL (150-400); POLYS 56.2 % (36.0-66.0); RBC 4.24 mil/uL (4.20-5.00); RDW 19.3 % (10.5-14.5); WBC 13.4 thou/uL (4.0-11.0)
[2018-07-02 06:31] VITALS: BP 95/52
== END 2018-07-02 06:35 | disposition home or self-care (01) ==
LOC: ER 03:07
PROVIDERS: Student in an Organized Health Care Education/Training Program
DX: D57.00 Hb-SS disease with crisis, unspecified (principal); Z88.6 Allergy status to analgesic agent; Z91.041 Radiographic dye allergy status; Z91.018 Allergy to other foods; Z90.49 Acquired absence of other specified parts of digestive tract; Z87.01 Personal history of pneumonia (recurrent); Z86.2 Personal history of diseases of the blood and blood-forming organs and certain disorders involving the immune mechanism

== ENCOUNTER 2018-07-16 00:15 | Emergency (ER) | payer OTHER ==
[~2018-07-16] VITALS: Ht 157.5 cm; Wt 74.4 kg
[2018-07-16 01:12] LABS: HEMOGLOBIN 11.1 gm/dL (12.0-15.0); WBC 13.8 thou/uL (4.0-11.0)
[2018-07-16 01:14] LABS: HEMATOCRIT 32.9 % (37.0-47.0); MCH 25.7 pg (26.0-34.0); MCHC 33.6 g/dL (28.0-37.0); MCV 76.4 fL (80.0-100.0); PLATELET COUNT 405 thou/uL (150-400); RBC 4.31 mil/uL (4.20-5.00); RDW 19.8 % (10.5-14.5)
[2018-07-16 01:17] LABS: CALCIUM 9.2 mg/dL (8.5-10.1); CREATININE 0.8 mg/dL (0.6-1.0); POTASSIUM 3.5 mmol/L (3.5-5.1)
[2018-07-16 01:18] LABS: ABSOLUTE RETIC COUNT 0.1517 10^6/uL; OBSERVED RETIC COUNT 3.53 % (0.6-2.6)
[2018-07-16 01:41] LABS: ABSOLUTE NEUTROPHILS 8.3 thou/uL (1.4-8.2); NUCLEATED RBCS 1 /100WBC
[2018-07-16 01:44] LABS: ANISOCYTOSIS 2+; HYPOCHROMASIA 1+; MICROCYTES 1+; POLYCHROMASIA 1+
[2018-07-16 01:45] LABS: LARGE PLATELETS FEW; PLATELET ESTIMATE INCREASED; SCHISTOCYTES FEW; TARGET CELLS 2+
[2018-07-16 02:47] LABS: URINE BILIRUBIN NEGATIVE (Negative); URINE BLOOD NEGATIVE (Negative); URINE CLARITY CLEAR; URINE COLOR YELLOW; URINE GLUCOSE-RANDOM* NEGATIVE (Negative); URINE KETONES NEGATIVE (Negative); URINE LEUKOCYTES-REFLEX TRACE (Negative); URINE NITRITE-REFLEX POSITIVE (Negative); URINE PROTEIN (DIPSTICK) NEGATIVE (Negative); URINE UROBILINOGEN 0.2 E.U./dl (0.2-1.0)
[2018-07-16 03:29] LABS: BACTERIA-REFLEX >30 Many /HPF (None Seen); SQUAMOUS 0-3 Few /LPF (0-3); URINE RBC 0-2 Rare /HPF (0-2); URINE WBC-REFLEX 0-5 Rare /HPF (0-5)
[2018-07-16 03:30] LABS: CASTS None Seen /LPF (None Seen); CRYSTALS None Seen /LPF (None Seen)
[2018-07-16] MEDS ORDERED: KEFLEX500 M1 PO (03:39)
[2018-07-16 04:26] VITALS: BP 130/86
== END 2018-07-16 04:26 | disposition home or self-care (01) ==
LOC: ER 00:15
PROVIDERS: Student in an Organized Health Care Education/Training Program
DX: D57.00 Hb-SS disease with crisis, unspecified (principal); N39.0 Urinary tract infection, site not specified; J96.90 Respiratory failure, unspecified, unspecified whether with hypoxia or hypercapnia; N19 Unspecified kidney failure; Z87.01 Personal history of pneumonia (recurrent); Z90.49 Acquired absence of other specified parts of digestive tract; Z88.5 Allergy status to narcotic agent; Z91.041 Radiographic dye allergy status; Z91.09 Other allergy status, other than to drugs and biological substances

== ENCOUNTER 2018-07-20 12:54 | Emergency (ER) | payer OTHER ==
[~2018-07-20] VITALS: Ht 157.5 cm; Wt 74.4 kg
[2018-07-20] MEDS ORDERED: VITAMIN D1000 UNI1 PO (13:27)
[2018-07-20 15:24] VITALS: BP 105/56
== END 2018-07-20 15:25 | disposition home or self-care (01) ==
LOC: ER 12:54
DX: D57.1 Sickle-cell disease without crisis (principal); Z88.5 Allergy status to narcotic agent; Z91.041 Radiographic dye allergy status; Z91.018 Allergy to other foods; Z90.81 Acquired absence of spleen; Z90.49 Acquired absence of other specified parts of digestive tract; Z86.718 Personal history of other venous thrombosis and embolism; Z86.2 Personal history of diseases of the blood and blood-forming organs and certain disorders involving the immune mechanism

== ENCOUNTER 2018-07-29 07:34 | Emergency (ER) | payer OTHER ==
[~2018-07-29] VITALS: Ht 157.5 cm; Wt 74.8 kg
[~2018-07-29 07:34] MED LIST changes: +VITAMIN D1000 UNI1 PO
[2018-07-29 08:23] LABS: URINE BILIRUBIN NEGATIVE (Negative); URINE BLOOD 1+ (Negative); URINE CLARITY CLEAR; URINE COLOR YELLOW; URINE GLUCOSE-RANDOM* NEGATIVE (Negative); URINE KETONES NEGATIVE (Negative); URINE NITRITE-REFLEX NEGATIVE (Negative); URINE PROTEIN (DIPSTICK) NEGATIVE (Negative); URINE UROBILINOGEN 0.2 E.U./dl (0.2-1.0)
[2018-07-29 08:27] LABS: URINE LEUKOCYTES-REFLEX 2+ (Negative)
[2018-07-29 08:40] LABS: BACTERIA-REFLEX >30 Many /HPF (None Seen); CASTS None Seen /LPF (None Seen); CRYSTALS None Seen /LPF (None Seen); SQUAMOUS 0-3 Few /LPF (0-3)
[2018-07-29 08:41] LABS: URINE RBC 0-2 Rare /HPF (0-2); URINE WBC-REFLEX >25 Many /HPF (0-5)
[2018-07-29 08:47] LABS: CALCIUM 9.2 mg/dL (8.5-10.1); CREATININE 0.8 mg/dL (0.6-1.0); POTASSIUM 3.8 mmol/L (3.5-5.1)
[2018-07-29 08:48] LABS: HEMATOCRIT 35.1 % (37.0-47.0); HEMOGLOBIN 11.3 gm/dL (12.0-15.0); MCH 24.7 pg (26.0-34.0); MCHC 32.3 g/dL (28.0-37.0); MCV 76.5 fL (80.0-100.0); OBSERVED RETIC COUNT 2.18 % (0.6-2.6); PLATELET COUNT 429 thou/uL (150-400); RBC 4.59 mil/uL (4.20-5.00); RDW 18.7 % (10.5-14.5); WBC 12.5 thou/uL (4.0-11.0)
[2018-07-29 08:53] LABS: ALBUMIN 3.5 g/dL (3.4-5.0); TOTAL BILIRUBIN 0.6 mg/dL (<0.1-1.0); TOTAL PROTEIN 7.3 g/dL (6.4-8.2)
[2018-07-29 09:16] LABS: ABSOLUTE NEUTROPHILS 8.1 thou/uL (1.4-8.2); PLATELET ESTIMATE NORMAL
[2018-07-29 09:17] LABS: ANISOCYTOSIS 2+; TARGET CELLS 2+
[2018-07-29] MEDS ORDERED: KEFLEX500 M1 PO (09:33)
[2018-07-29 09:59] VITALS: BP 103/67
== END 2018-07-29 10:05 | disposition home or self-care (01) ==
LOC: ER 07:34
PROVIDERS: Emergency Medicine
DX: D57.00 Hb-SS disease with crisis, unspecified (principal); R19.7 Diarrhea, unspecified; N39.0 Urinary tract infection, site not specified; J96.90 Respiratory failure, unspecified, unspecified whether with hypoxia or hypercapnia; N19 Unspecified kidney failure; Z87.01 Personal history of pneumonia (recurrent); Z88.5 Allergy status to narcotic agent; Z91.041 Radiographic dye allergy status

== ENCOUNTER 2018-08-21 16:14 | Emergency (ER) | payer OTHER ==
[~2018-08-21] VITALS: Ht 157.5 cm; Wt 74.8 kg
[2018-08-21 16:44] LABS: URINE BILIRUBIN NEGATIVE (Negative); URINE BLOOD NEGATIVE (Negative); URINE CLARITY CLEAR; URINE COLOR YELLOW; URINE GLUCOSE-RANDOM* NEGATIVE (Negative); URINE KETONES NEGATIVE (Negative); URINE LEUKOCYTES-REFLEX NEGATIVE (Negative); URINE NITRITE-REFLEX NEGATIVE (Negative); URINE PROTEIN (DIPSTICK) NEGATIVE (Negative); URINE UROBILINOGEN 0.2 E.U./dl (0.2-1.0)
[2018-08-21 16:59] LABS: RDW 18.2 % (10.5-14.5); WBC 12.1 thou/uL (4.0-11.0)
[2018-08-21 17:00] LABS: HEMATOCRIT 32.4 % (37.0-47.0); HEMOGLOBIN 10.8 gm/dL (12.0-15.0); MCH 25.1 pg (26.0-34.0); MCHC 33.4 g/dL (28.0-37.0); MCV 75.2 fL (80.0-100.0); PLATELET COUNT 421 thou/uL (150-400); RBC 4.31 mil/uL (4.20-5.00)
[2018-08-21 17:06] LABS: CALCIUM 8.8 mg/dL (8.5-10.1); CREATININE 0.9 mg/dL (0.6-1.0); POTASSIUM 3.9 mmol/L (3.5-5.1)
[2018-08-21 17:07] LABS: OBSERVED RETIC COUNT 1.9 % (0.6-2.6)
[2018-08-21 17:39] LABS: ABSOLUTE NEUTROPHILS 4.8 thou/uL (1.4-8.2)
[2018-08-21 17:40] LABS: ANISOCYTOSIS 2+; TARGET CELLS 3+
[2018-08-21] MEDS ORDERED: OXYCODONE HCL 55 MG PO (18:21)
[2018-08-21 19:19] VITALS: BP 106/42
== END 2018-08-21 19:19 | disposition home or self-care (01) ==
LOC: ER 16:14
PROVIDERS: Student in an Organized Health Care Education/Training Program
DX: D57.00 Hb-SS disease with crisis, unspecified (principal); R19.7 Diarrhea, unspecified; Z88.6 Allergy status to analgesic agent; Z91.041 Radiographic dye allergy status; Z91.018 Allergy to other foods; Z90.49 Acquired absence of other specified parts of digestive tract; Z86.718 Personal history of other venous thrombosis and embolism; Z86.2 Personal history of diseases of the blood and blood-forming organs and certain disorders involving the immune mechanism; Z87.01 Personal history of pneumonia (recurrent); Z86.711 Personal history of pulmonary embolism

== ENCOUNTER 2018-09-09 07:30 | Emergency (ER) | payer OTHER ==
[~2018-09-09] VITALS: Ht 157.5 cm; Wt 76.7 kg
[~2018-09-09 07:30] MED LIST changes: +OXYCODONE HCL 55 MG PO
[2018-09-09 10:13] VITALS: BP 99/60
== END 2018-09-09 10:13 | disposition home or self-care (01) ==
LOC: ER 07:30
DX: D57.00 Hb-SS disease with crisis, unspecified (principal); Z90.49 Acquired absence of other specified parts of digestive tract; Z86.718 Personal history of other venous thrombosis and embolism; Z86.711 Personal history of pulmonary embolism; Z87.01 Personal history of pneumonia (recurrent); Z88.5 Allergy status to narcotic agent; Z91.018 Allergy to other foods; Z91.041 Radiographic dye allergy status

== ENCOUNTER 2018-09-14 14:44 | Emergency (ER) | payer OTHER ==
[~2018-09-14] VITALS: Ht 157.5 cm; Wt 76.2 kg
[2018-09-14 15:26] LABS: URINE BILIRUBIN NEGATIVE (Negative); URINE BLOOD NEGATIVE (Negative); URINE CLARITY CLEAR; URINE COLOR YELLOW; URINE GLUCOSE-RANDOM* NEGATIVE (Negative); URINE KETONES NEGATIVE (Negative); URINE PROTEIN (DIPSTICK) NEGATIVE (Negative); URINE UROBILINOGEN 0.2 E.U./dl (0.2-1.0)
[2018-09-14 15:28] LABS: URINE LEUKOCYTES-REFLEX 2+ (Negative); URINE NITRITE-REFLEX POSITIVE (Negative)
[2018-09-14 15:39] LABS: CASTS None Seen /LPF (None Seen); CRYSTALS None Seen /LPF (None Seen); SQUAMOUS 0-3 Few /LPF (0-3); URINE RBC None Seen /HPF (0-2); URINE WBC-REFLEX 6-15 Few /HPF (0-5)
[2018-09-14] MEDS ORDERED: BENTYL 20 MG TA20 M1 PO (17:28)
[2018-09-14] MEDS ORDERED: ONDANSETRON HCL4 M2 PO (17:28)
[2018-09-14] MEDS ORDERED: KEFLEX500 M1 PO (17:33)
[2018-09-14 17:52] VITALS: BP 108/69
== END 2018-09-14 17:53 | disposition home or self-care (01) ==
LOC: ER 14:44
PROVIDERS: Physician Assistant
DX: N39.0 Urinary tract infection, site not specified (principal); R19.7 Diarrhea, unspecified; G89.29 Other chronic pain; Z88.5 Allergy status to narcotic agent; Z91.048 Other nonmedicinal substance allergy status; Z91.041 Radiographic dye allergy status; Z90.81 Acquired absence of spleen; Z90.49 Acquired absence of other specified parts of digestive tract; Z86.718 Personal history of other venous thrombosis and embolism; Z86.2 Personal history of diseases of the blood and blood-forming organs and certain disorders involving the immune mechanism

== ENCOUNTER 2018-10-17 18:00 | Emergency (ER) | payer OTHER ==
[~2018-10-17] VITALS: Ht 157.5 cm; Wt 77.1 kg
[~2018-10-17 18:00] MED LIST changes: +BENTYL 20 MG TA20 M1 PO; +ONDANSETRON HCL4 M2 PO
[2018-10-17] MEDS ORDERED: SIKLOS1000 MG PO (18:28)
[2018-10-17] MEDS ORDERED: DILAUDID 2 MG TA2 MG PO (18:29)
[2018-10-17] MEDS ORDERED: NORCO 10-325 T1 EACH PO (18:29)
[2018-10-17 18:48] LABS: URINE BILIRUBIN NEGATIVE (Negative); URINE BLOOD NEGATIVE (Negative); URINE CLARITY CLEAR; URINE COLOR YELLOW; URINE GLUCOSE-RANDOM* NEGATIVE (Negative); URINE KETONES NEGATIVE (Negative); URINE LEUKOCYTES-REFLEX NEGATIVE (Negative); URINE NITRITE-REFLEX NEGATIVE (Negative); URINE PROTEIN (DIPSTICK) NEGATIVE (Negative); URINE UROBILINOGEN 0.2 E.U./dl (0.2-1.0)
[2018-10-17 20:51] LABS: HEMOGLOBIN 11.1 gm/dL (12.0-15.0); MCHC 32.9 g/dL (28.0-37.0); WBC 16.4 thou/uL (4.0-11.0)
[2018-10-17 20:53] LABS: HEMATOCRIT 33.8 % (37.0-47.0); MCH 25.9 pg (26.0-34.0); MCV 78.7 fL (80.0-100.0); PLATELET COUNT 390 thou/uL (150-400)
[2018-10-17 20:58] LABS: ABSOLUTE RETIC COUNT 0.1227 10^6/uL; OBSERVED RETIC COUNT 2.92 % (0.6-2.6)
[2018-10-17 21:01] LABS: CALCIUM 8.9 mg/dL (8.5-10.1); CREATININE 0.9 mg/dL (0.6-1.0); POTASSIUM 3.9 mmol/L (3.5-5.1)
[2018-10-17 21:07] LABS: ALBUMIN 3.5 g/dL (3.4-5.0); TOTAL BILIRUBIN 0.5 mg/dL (<0.1-1.0); TOTAL PROTEIN 7.1 g/dL (6.4-8.2)
[2018-10-17 21:25] LABS: ANISOCYTOSIS 1+; HYPOCHROMASIA 2+; MICROCYTES 2+; PLATELET ESTIMATE NORMAL
[2018-10-17] MEDS ORDERED: AZITHROMYCIN 2250 MG PO (21:39)
[2018-10-17 23:47] VITALS: BP 112/63
== END 2018-10-17 23:47 | disposition home or self-care (01) ==
LOC: ER 18:00
PROVIDERS: Emergency Medicine
DX: J18.9 Pneumonia, unspecified organism (principal); F17.210 Nicotine dependence, cigarettes, uncomplicated; Z88.5 Allergy status to narcotic agent; Z91.048 Other nonmedicinal substance allergy status; Z91.041 Radiographic dye allergy status; Z90.49 Acquired absence of other specified parts of digestive tract; Z86.718 Personal history of other venous thrombosis and embolism; Z86.2 Personal history of diseases of the blood and blood-forming organs and certain disorders involving the immune mechanism; Z90.81 Acquired absence of spleen

== ENCOUNTER 2018-10-19 17:52 | Inpatient (IN) | payer OTHER ==
[~2018-10-19] VITALS: Ht 152.4 cm; Wt 79.6 kg
[~2018-10-19 17:52] MED LIST changes: +AZITHROMYCIN 2250 MG PO; +NORCO 10-325 T1 EACH PO; +SIKLOS1000 MG PO
[2018-10-19 17:54] VITALS: BP 110/73
[2018-10-19 18:36] LABS: URINE BILIRUBIN NEGATIVE (Negative); URINE BLOOD NEGATIVE (Negative); URINE CLARITY CLEAR; URINE COLOR YELLOW; URINE GLUCOSE-RANDOM* NEGATIVE (Negative); URINE KETONES NEGATIVE (Negative); URINE LEUKOCYTES NEGATIVE (Negative); URINE NITRITE NEGATIVE (Negative); URINE PROTEIN (DIPSTICK) NEGATIVE (Negative); URINE UROBILINOGEN 0.2 E.U./dl (0.2-1.0)
[2018-10-19 18:37] LABS: HEMOGLOBIN 11.8 gm/dL (12.0-15.0); WBC 10.8 thou/uL (4.0-11.0)
[2018-10-19 18:39] LABS: HEMATOCRIT 35.9 % (37.0-47.0); MCH 25.6 pg (26.0-34.0); MCHC 32.9 g/dL (28.0-37.0); MCV 77.8 fL (80.0-100.0); PLATELET COUNT 437 thou/uL (150-400); RBC 4.61 mil/uL (4.20-5.00); RDW 17.4 % (10.5-14.5)
[2018-10-19 18:43] LABS: CALCIUM 9.3 mg/dL (8.5-10.1); CREATININE 0.9 mg/dL (0.6-1.0); POTASSIUM 3.6 mmol/L (3.5-5.1)
[2018-10-19 18:49] LABS: ALBUMIN 3.8 g/dL (3.4-5.0); TOTAL BILIRUBIN 0.6 mg/dL (<0.1-1.0); TOTAL PROTEIN 7.7 g/dL (6.4-8.2)
[2018-10-19 19:14] LABS: ABSOLUTE NEUTROPHILS 5.1 thou/uL (1.4-8.2)
[2018-10-19 19:15] LABS: ANISOCYTOSIS 1+; LARGE PLATELETS SEVERAL; TARGET CELLS 3+
[2018-10-19 20:03] LABS: ABSOLUTE RETIC COUNT 0.1178 10^6/uL; OBSERVED RETIC COUNT 2.58 % (0.6-2.6)
[2018-10-19 20:57] VITALS: BP 107/63
[2018-10-19 21:08] VITALS: BP 106/61
[2018-10-19 22:31] VITALS: BP 116/54
[2018-10-20 03:49] VITALS: BP 111/47
[2018-10-20 07:33] VITALS: BP 103/49
--- NOTE | 2018-10-20 10:05 | NUR ---
PT A&OX4, VSS, C/O GENERAL PAIN. MEDICATION CHANGES GOING ON, PT NOTIFIED AND UPSET, D/T PAIN MEDICATION BEING LATE. PT HAS NO NAUSEA VOMITING AT THIS TIME, UPSET WITH CLEAR LIQUID DIET. REGULAR DIET RESUMED, DOCTOR NOTIFIED. PT IS SATISFIED AT THIS TIME.
--- NOTE | 2018-10-20 10:25 | NUR ---
chart review. cm visited with pt at bedside, verbal consent to visit with male friend in room. intro to cm, dcp and transition of care. pt a & o x 4, pleasant, quiet and noted tears from her eyes. offered to get nurse. " having pain, got some medication little bit ago, its ok"/meme. she reported " live in house with daughter and granddaughter. independent when feeling ok. 0 to enter home, 12 steps downstairs with left hr but don't have to go down them. cook, clean, work, drive vehicle. family physician dr brush. had port for year now, been changed few times. only used when at doctors appointment. managing own medication at home. have rx coverage through [facility] and use [facility] off [address]"/meme. no anticipated needs. will cont following as needed for dc needs. dcp home
--- NOTE | 2018-10-20 10:39 | NUR ---
admit pt arrived to floor at 2130 admitted with pneumonia, nvd, and sickle cell crisis pt has right chest port infusing ns@75, on ra. rating pain a 8 to 10 taking .25 mg dilaudid q4hrs, up ad jayesh tolerating liquids without any nv or diarrhea.
[2018-10-20 14:04] VITALS: BP 95/57
[2018-10-20 20:25] VITALS: BP 108/54
--- NOTE | 2018-10-20 20:58 | NUR ---
PT A&OX4, VSS, CHRONIC PAIN D/T SICKLE CELL ANEMIA. PT CONCERN TODAY WAS HAVING IV PAIN MEDICATION. ORDER PLACED FOR PO ONLY. PT CHEST PORT ON LEFT SIDE, COULD NOT GET BLOOD DRAW. IV TEAM CALLED AND ASSISTED WITH PORT, INFORMATION PASSED TO ONCOMING NURSE. PT LUNGS SOUND CLEAR, NO COUGHING. NO N/V/D, REGULAR DIET AND HAS TOLERATED. PT HAS PSYCH CONSULT ON BOARD. WILL CONTINUE TO MONITOR.
[2018-10-21 04:27] VITALS: BP 93/47
[2018-10-21 05:26] LABS: HEMATOCRIT 32.1 % (37.0-47.0); HEMOGLOBIN 10.7 gm/dL (12.0-15.0); MCHC 33.3 g/dL (28.0-37.0); MCV 78.2 fL (80.0-100.0); RBC 4.1 mil/uL (4.20-5.00); WBC 8.4 thou/uL (4.0-11.0)
--- NOTE | 2018-10-21 07:41 | NUR ---
patient aox4 makes needs known. pain controlled this shift. no n/v/diarrhea this shift.patient calm and cooperative with care and meds. patient in bed asleep at this time breathing regular and unlaboured.
[2018-10-21 08:00] VITALS: BP 106/67
[2018-10-21] MEDS ORDERED: CEFUROXIME500 MG PO (10:18)
[2018-10-21] MEDS ORDERED: MUCINEX600 MG PO (10:19)
[2018-10-21 10:33] VITALS: BP 106/67
--- NOTE | 2018-10-21 12:38 | NUR ---
ASSUMED CARE 0700. A/OX4, PAIN MANAGED WITH MEDICATION, UP AB CH[place]O, SHOWERED TODAY. DC HOME TODAY. PT TO FOLLOW UP WITH PCP FOR PAIN MANAGEMENT MEDICATIONS. REMOVED PORT IV. DC HOME WITH DAUGHTER.
--- NOTE | 2018-10-23 21:24 | HC ---
[facility] [place] [address] [place] [address] CONSULTATION Name: ROMARIO BLEDSOE Room #: 460-P [facility] IN M.R.#: [id number] Admission: 10/19/18 ������������������ Attend Phys: Rebecca Clement Discharge: 10/21/18 ������������������ Date of : 78 Report #: [id number] THIS REPORT FOR: //name// CC: Lottie Clement HISTORY OF PRESENT ILLNESS: The patient is a 38-year-old black female who was admitted through the Emergency Room with complaints of "hurting all over." It was suspected she had a community-acquired pneumonia and was started on antibiotics. She was just in the Emergency Room four days earlier this week and sent home after fluids and antibiotics. She is seen in Hematology consultation regarding her known history of hemoglobin S-C disease. She follows with Dr. Mariana Martinez who saw her just a few weeks ago in the [facility] at which time, she was given prescription refills for her narcotics as well as hydroxyurea and Endari. She states that she did not start the Hydrea for over a week and has been back on therapy for approximately two weeks. She was not taking any medication earlier because she had hoped to get . She is planning to move to [place] in the near future. At the time of Dr. Martinez' visit, her hemoglobin was 11.5 grams with a white count of 17,200 on 09/25/2018. PAST MEDICAL HISTORY: Significant for earlier hospitalization when she was seen by me last summer after C. diff colitis with sepsis, shock and renal failure. She fortunately has recovered. ALLERGIES: TO MORPHINE. MEDICATIONS: As on the MFR. SOCIAL HISTORY: She is a cigarette smoker. FAMILY HISTORY: Negative as she is adopted. REVIEW OF SYSTEMS: As in the history of present illness. PHYSICAL EXAMINATION: GENERAL: Shows her to be alert. HEENT: She is normocephalic. NECK: Supple. CHEST: Clear. CARDIOVASCULAR: Normal S1, S2. ABDOMEN: Soft. EXTREMITIES: No clubbing, cyanosis, edema. SKIN: Normal turgor. [facility] [address] [place] [address] CONSULTATION Name: ROMARIO BLEDSOE Room #: 460-[facility] IN M.R.#: [id number] Admission: 10/19/18 ������������������ Attend Phys: Rebecca Clement Discharge: 10/21/18 ������������������ Date of : 78 Report #: [id number] NEUROLOGIC: No focal localizing signs. PSYCHIATRIC: Not agitated or confused. LYMPHATICS: No suspicious adenopathy. LABORATORY DATA: Reviewed from [place] and shows her white count is actually a high normal with improvement in her hemoglobin to 11.8 grams and a normal bilirubin. 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 PLAN: While she refilled her Hydrea, she has not been taking Endari, which we have discussed and I will make sure that this gets reordered from her pharmacy. She knows to see Dr. Martinez back again soon and will be planning a visit prior to her move to [place]. Thanks for informing of her hospitalization and allowing us to participate in her care. ��������������������������������������������� <ELECTRONICALLY SIGNED> ���������������������������������������� By: Destiny Denise MD ��������������������������������������������� 10/23/18 2124 1523 0434 Destiny Denise MD /nt
== END 2018-10-21 12:49 | disposition home or self-care (01) | DRG 811 ==
LOC: ER 17:52 → EROBS 19:33 → 4W 19:33
PROVIDERS: Emergency Medicine; ADMIT Hospitalist
DX: D57.00 Hb-SS disease with crisis, unspecified (principal); J18.9 Pneumonia, unspecified organism; F11.20 Opioid dependence, uncomplicated; F43.20 Adjustment disorder, unspecified; G89.29 Other chronic pain; F17.210 Nicotine dependence, cigarettes, uncomplicated; Z90.81 Acquired absence of spleen; Z90.49 Acquired absence of other specified parts of digestive tract; Z86.718 Personal history of other venous thrombosis and embolism; Z86.711 Personal history of pulmonary embolism; Z87.01 Personal history of pneumonia (recurrent); Z79.01 Long term (current) use of anticoagulants; Z79.899 Other long term (current) drug therapy; Z88.5 Allergy status to narcotic agent; Z88.8 Allergy status to other drugs, medicaments and biological substances; Z91.041 Radiographic dye allergy status
CPT/HCPCS: 10045

== ENCOUNTER 2018-11-14 17:06 | Emergency (ER) | payer OTHER ==
[~2018-11-14] VITALS: Ht 157.5 cm; Wt 77.1 kg
[~2018-11-14 17:06] MED LIST changes: +CEFUROXIME500 MG PO; +MUCINEX600 MG PO
[2018-11-14] MEDS ORDERED: SIKLOS1000 MG PO (18:09)
[2018-11-14 18:13] LABS: HEMOGLOBIN 11.5 gm/dL (12.0-15.0); RDW 17.4 % (10.5-14.5)
[2018-11-14 18:15] LABS: HEMATOCRIT 34.4 % (37.0-47.0); MCH 26.1 pg (26.0-34.0); MCHC 33.4 g/dL (28.0-37.0); MCV 77.9 fL (80.0-100.0); PLATELET COUNT 379 thou/uL (150-400); RBC 4.42 mil/uL (4.20-5.00); WBC 11.3 thou/uL (4.0-11.0)
[2018-11-14 18:26] LABS: ABSOLUTE RETIC COUNT 0.1029 10^6/uL; OBSERVED RETIC COUNT 2.35 % (0.6-2.6)
[2018-11-14 19:00] LABS: ABSOLUTE NEUTROPHILS 5.2 thou/uL (1.4-8.2); ANISOCYTOSIS 1+; ATYPICAL LYMPHS 6 %; MICROCYTES 1+; PLATELET ESTIMATE NORMAL
[2018-11-14 19:01] LABS: HYPOCHROMASIA SLIGHT; POIKILOCYTOSIS 1+; TARGET CELLS OCCASIONAL
[2018-11-14 19:02] LABS: POLYCHROMASIA OCCASIONAL
[2018-11-14 21:11] VITALS: BP 115/54
== END 2018-11-14 21:11 | disposition home or self-care (01) ==
LOC: ER 17:06
PROVIDERS: Emergency Medicine
DX: D57.00 Hb-SS disease with crisis, unspecified (principal); F17.210 Nicotine dependence, cigarettes, uncomplicated; Z90.49 Acquired absence of other specified parts of digestive tract; Z86.718 Personal history of other venous thrombosis and embolism; Z87.01 Personal history of pneumonia (recurrent); Z86.711 Personal history of pulmonary embolism; Z86.2 Personal history of diseases of the blood and blood-forming organs and certain disorders involving the immune mechanism; Z88.5 Allergy status to narcotic agent; Z91.041 Radiographic dye allergy status

== ENCOUNTER 2018-11-18 07:59 | Emergency (ER) | payer OTHER ==
[~2018-11-18] VITALS: Ht 157.5 cm; Wt 74.4 kg
[2018-11-18 08:14] LABS: URINE BILIRUBIN NEGATIVE (Negative); URINE BLOOD NEGATIVE (Negative); URINE CLARITY CLEAR; URINE COLOR YELLOW; URINE GLUCOSE-RANDOM* NEGATIVE (Negative); URINE KETONES NEGATIVE (Negative); URINE LEUKOCYTES TRACE (Negative); URINE NITRITE NEGATIVE (Negative); URINE PROTEIN (DIPSTICK) NEGATIVE (Negative); URINE UROBILINOGEN 0.2 E.U./dl (0.2-1.0)
[2018-11-18 09:13] LABS: HEMATOCRIT 34.1 % (37.0-47.0); HEMOGLOBIN 11.3 gm/dL (12.0-15.0); MCH 26.3 pg (26.0-34.0); MCHC 33.3 g/dL (28.0-37.0); PLATELET COUNT 357 thou/uL (150-400); RBC 4.31 mil/uL (4.20-5.00); WBC 9.9 thou/uL (4.0-11.0)
[2018-11-18 09:18] LABS: CALCIUM 8.4 mg/dL (8.5-10.1); CREATININE 0.9 mg/dL (0.6-1.0); POTASSIUM 3.9 mmol/L (3.5-5.1)
[2018-11-18 09:21] LABS: OBSERVED RETIC COUNT 1.42 % (0.6-2.6)
[2018-11-18 09:24] LABS: ALBUMIN 3.4 g/dL (3.4-5.0); DIRECT BILIRUBIN 0.1 mg/dL (<0.1-0.3); TOTAL BILIRUBIN 0.4 mg/dL (<0.1-1.0); TOTAL PROTEIN 6.8 g/dL (6.4-8.2)
[2018-11-18 10:06] LABS: ABSOLUTE NEUTROPHILS 5.9 thou/uL (1.4-8.2); ANISOCYTOSIS 2+; MICROCYTES 1+
[2018-11-18 10:07] LABS: HYPOCHROMASIA SLIGHT; TARGET CELLS OCCASIONAL
[2018-11-18 10:08] LABS: LARGE PLATELETS OCCASIONAL
[2018-11-18 12:40] VITALS: BP 97/66
== END 2018-11-18 12:40 | disposition home or self-care (01) ==
LOC: ER 07:59
PROVIDERS: Emergency Medicine
DX: R10.13 Epigastric pain (principal); R11.2 Nausea with vomiting, unspecified; R19.7 Diarrhea, unspecified; F17.210 Nicotine dependence, cigarettes, uncomplicated; Z90.49 Acquired absence of other specified parts of digestive tract; Z86.718 Personal history of other venous thrombosis and embolism; Z87.01 Personal history of pneumonia (recurrent); Z86.711 Personal history of pulmonary embolism; Z88.5 Allergy status to narcotic agent; Z91.041 Radiographic dye allergy status; Z98.890 Other specified postprocedural states

== ENCOUNTER 2018-11-19 10:28 | Inpatient (IN) | payer OTHER ==
[~2018-11-19] VITALS: Ht 157.5 cm; Wt 74.4 kg
--- NOTE | ~2018-11-19 | HC ---
[facility] [place] [place] [address] CONSULTATION Name: ROMARIO BLEDSOE Room #: 456-P ADM IN M.R.#: [id number] Admission: 11/19/18 ������������������ Attend Phys: Yvon Goldberg MD Discharge: ������������������ Date of : 78 Report #: [id number] THIS REPORT FOR: //name// CC: Lottie Dixon Yvon Martinez MD REFERRING PHYSICIAN: Yvon Goldberg MD. REASON FOR CONSULTATION: Sickle hemoglobin SC disease. 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 She began having diarrhea, has also had dyspepsia, also vomiting, maybe low-grade fever the day before admit to . No blood in urine or stool, not passing much gas down lower. Her grandbaby had been sick with GI symptoms about a week or two earlier. The patient is having some abdominal pain, also some conner pain. Since she has been here, her lab work has included total bilirubin of 0.5, which is sort of her baseline in the past ____ has been up as high as 1. Transaminases have been normal range. LDH is not checked at this time, may check it. She had been iron deficient, past have been on the iron. White count on admission was 9.9, it is currently 11; hemoglobin 10.4, which is a little bit lower, usually she runs between 9.6 and 11.5; MCV 78.4, she has run in the past 74, she has been 79, platelets 346, has Posada-Niota bodies; absolute retic count is 0.0612, in the past she usually has been as high as 0.13 to 0.17. This would suggest she is not retaking that much at this point. She does have a positive sickle cell screen the past in 09/2017. PHYSICAL EXAMINATION: GENERAL: The patient appears her stated age. She is standing at the bedside when I first came in the room. VITAL SIGNS: Height is 5 feet 2 inches or 157.5 cm; weight is 164 pounds or 74.4 kilograms, blood pressure is 110/57, O2 sat 99, respirations 20, pulse 66 and temperature 97.9. MOOD: She is alert and pleasant. LUNGS: Clear, symmetric, not labored. ABDOMEN: Slightly obese. No definite masses, slightly pain by her description. EXTREMITIES: Without clubbing or cyanosis. She describes some slight tenderness in the anterior shins. ASSESSMENT AND PLAN: 1. History of hemoglobin SC described sickle cell pain, not clear yet to me whether she is biochemically in crisis, would not increase pain meds above normal, would continue hydration. 2. Abdominal discomfort and diarrhea, will defer to others. 3. Regarding sickle cell, had been on L-glutamine/Endari, could continue this [address] [address] CONSULTATION Name: ROMARIO BLEDSOE Room #: 456-P [facility] IN M.R.#: [id number] Admission: 11/19/18 ������������������ Attend Phys: Yvon Goldberg MD Discharge: ������������������ Date of : 78 Report #: [id number] for hold, had been on Hydrea, could hold while she is sick, had also been on folic acid, which I would continue. 4. History of iron deficiency. Restart iron when outpatient followup with Dr. Martinez. 5. History of pulmonary embolus with a clot supposedly in 08/2016, had completed a year of therapy in 08/2017. She also had a possible new clot in 12/2017. Because of this, they thought she probably should consider longer term anticoagulation, if I understand correctly, she has been on rivaroxaban and will need indefinite anticoagulate. 6. Peripheral neuropathy unchanged. We will follow with you. ��������������������������������������������� ���������������������������������������� By: ��������������������������������������������� 0838 1227 Herson Rowley MD /nt
[~2018-11-19 10:28] MED LIST changes: +ONDANSETRON ODT8 MG PO; +PROMS25 WY RECTAL
[2018-11-19 10:40] VITALS: BP 123/64
[2018-11-19 11:05] LABS: URINE BILIRUBIN NEGATIVE (Negative); URINE BLOOD NEGATIVE (Negative); URINE CLARITY CLEAR; URINE COLOR YELLOW; URINE GLUCOSE-RANDOM* NEGATIVE (Negative); URINE KETONES NEGATIVE (Negative); URINE LEUKOCYTES-REFLEX NEGATIVE (Negative); URINE NITRITE-REFLEX NEGATIVE (Negative); URINE PROTEIN (DIPSTICK) NEGATIVE (Negative); URINE SPECIFIC GRAVITY <= 1.005 (1.005-1.035); URINE UROBILINOGEN 0.2 E.U./dl (0.2-1.0)
[2018-11-19 13:02] VITALS: BP 118/62
[2018-11-19 13:15] LABS: CALCIUM 8.7 mg/dL (8.5-10.1); CREATININE 0.8 mg/dL (0.6-1.0); POTASSIUM 4.4 mmol/L (3.5-5.1)
[2018-11-19 13:21] LABS: ALBUMIN 3.7 g/dL (3.4-5.0); TOTAL BILIRUBIN 0.5 mg/dL (<0.1-1.0); TOTAL PROTEIN 6.8 g/dL (6.4-8.2)
[2018-11-19 13:50] VITALS: BP 106/52
[2018-11-19 14:29] VITALS: BP 111/56
[2018-11-19 17:08] LABS: MCH 26.2 pg (26.0-34.0); WBC 10.6 thou/uL (4.0-11.0)
[2018-11-19 17:09] LABS: HEMATOCRIT 33.5 % (37.0-47.0); HEMOGLOBIN 11.1 gm/dL (12.0-15.0); MCHC 33.2 g/dL (28.0-37.0); PLATELET COUNT 348 thou/uL (150-400); RBC 4.24 mil/uL (4.20-5.00); RDW 17.2 % (10.5-14.5)
[2018-11-19 17:38] LABS: ANISOCYTOSIS 1+
[2018-11-19 20:59] VITALS: BP 120/58
--- NOTE | 2018-11-20 03:29 | NUR ---
ASSUMED CARE AROUND 190. AXOX4. C/O UNRELIEVED PAIN ON ABD AND GEBERALIZED D/T STATUS SICKLE CELL ANEMINA. CALLED BRAILLE OPERATOR KIA AND HOME MED NORCO RESTARTED. PT STILL C/O SEVERE PAIN. CALLED BRAILLE OPERATOR AGAIN. PER BRAILLE OPERATOR, MADE A NOTE TO NOT TO MAKES CHANGES ON DILAUDID. NOTED. EXPLAINED TO PT ABOUT THE PAIN REGIMEN. VERBALIZES THE UNDERSTADING THAT PT WILL HAVE A TALK WITH IN AM. NO S/S ACUTE DISTRESS NOTED OR REPORTED AT THIS TIME. WILL CONT TO MONITOR FOR ANY CHANGES IN CONDITION.
[2018-11-20 05:25] LABS: HEMATOCRIT 30.9 % (37.0-47.0); HEMOGLOBIN 10.4 gm/dL (12.0-15.0); MCH 26.4 pg (26.0-34.0); MCHC 33.7 g/dL (28.0-37.0); MCV 78.4 fL (80.0-100.0); RBC 3.94 mil/uL (4.20-5.00); RDW 17.4 % (10.5-14.5)
[2018-11-20 05:38] LABS: CALCIUM 8.2 mg/dL (8.5-10.1); CREATININE 0.9 mg/dL (0.6-1.0); POTASSIUM 3.5 mmol/L (3.5-5.1)
[2018-11-20 05:56] VITALS: BP 110/57
--- NOTE | 2018-11-20 08:03 | EKG ---
[address] [address] ELECTROCARDIOGRAM REPORT Name: ROMARIO BLEDSOE Room #: 456-P ADM IN M.R.#: [id number] ������������������ Admission: 11/19/18 ������������������ Attend Phys: Yvon Goldberg MD Discharge: ������������������ Date of : 78 Report #: [id number] ����������������������������������������������������������������� [id number] THIS REPORT FOR: //name// [facility] ED Test Date: 2018-11-19 Test Time: 11:20:50 Pat Name: ROMARIO BLEDSOE Department: Room: 456 Gender: F Dragline Engineer: jaylyn oneal : 1980 Requested By: Christophe Bates Order Number: [id number] MD: Michael Mcmillan Measurements Intervals [place] Rate: 64 P: 35 AR: 142 QRS: 14 QRSD: 89 T: -2 QT: 399 QTc: 412 Interpretive Statements Sinus rhythm Nonspecific T abnormalities, anterior leads Compared to ECG 05/02/2018 10:40:52 T-wave abnormality now present Sinus tachycardia no longer present ST (T wave) deviation no longer present Electronically Signed On 11-20-2018 8:03:10 CDT by Michael Mcmillan [email or web address] ��������������������������������������������� <ELECTRONICALLY SIGNED> ���������������������������������������� By: Michael Mcmillan MD ��������������������������������������������� 11/20/18 0803 1120 1120 Michael Mcmillan MD /EPI
[2018-11-20 10:39] VITALS: BP 110/57
--- NOTE | 2018-11-20 13:10 | NUR ---
Assumed pt care this am, pt was up at jayesh. Nausea was minimal and no vomiting was noted. Pain medication given with partial relief. POC followed. DC instructions given, pt has left the unit.
== END 2018-11-20 13:17 | disposition home or self-care (01) | DRG 392 ==
LOC: ER 10:28 → 4W 12:28 → EROBS 12:28 → 4W 13:53
PROVIDERS: Emergency Medicine; ADMIT Hospitalist
DX: K52.9 Noninfective gastroenteritis and colitis, unspecified (principal); F11.20 Opioid dependence, uncomplicated; D57.1 Sickle-cell disease without crisis; F17.210 Nicotine dependence, cigarettes, uncomplicated; G62.9 Polyneuropathy, unspecified; Z87.01 Personal history of pneumonia (recurrent); Z90.81 Acquired absence of spleen; Z90.49 Acquired absence of other specified parts of digestive tract; Z86.718 Personal history of other venous thrombosis and embolism; Z86.711 Personal history of pulmonary embolism; Z79.899 Other long term (current) drug therapy; Z88.6 Allergy status to analgesic agent; Z91.041 Radiographic dye allergy status; Z91.048 Other nonmedicinal substance allergy status; Z79.01 Long term (current) use of anticoagulants
CPT/HCPCS: 10040

== ENCOUNTER 2018-12-03 13:47 | Emergency (ER) | payer OTHER ==
[~2018-12-03] VITALS: Ht 157.5 cm; Wt 74.8 kg
[2018-12-03 13:53] VITALS: BP 126/46
[2018-12-10] MEDS ORDERED: TESSALON PERLE100 MG PO (13:22)
== END 2018-12-03 15:31 | disposition home or self-care (01) ==
LOC: ER 13:47
DX: D57.00 Hb-SS disease with crisis, unspecified (principal); F17.210 Nicotine dependence, cigarettes, uncomplicated; Z88.5 Allergy status to narcotic agent; Z91.018 Allergy to other foods; Z91.041 Radiographic dye allergy status; Z90.81 Acquired absence of spleen; Z90.49 Acquired absence of other specified parts of digestive tract; Z86.718 Personal history of other venous thrombosis and embolism; Z86.2 Personal history of diseases of the blood and blood-forming organs and certain disorders involving the immune mechanism

== ENCOUNTER 2018-12-16 13:54 | Emergency (ER) | payer OTHER ==
[~2018-12-16] VITALS: Ht 157.5 cm; Wt 74.8 kg
[~2018-12-16 13:54] MED LIST changes: +TESSALON PERLE100 MG PO
[2018-12-16 15:10] VITALS: BP 132/67
== END 2018-12-16 15:20 | disposition home or self-care (01) ==
LOC: ER 13:54
DX: S39.92XA Unspecified injury of lower back, initial encounter (principal); W10.9XXA Fall (on) (from) unspecified stairs and steps, initial encounter; Y93.89 Activity, other specified; Y92.89 Other specified places as the place of occurrence of the external cause; Y99.8 Other external cause status; J96.90 Respiratory failure, unspecified, unspecified whether with hypoxia or hypercapnia; Z90.49 Acquired absence of other specified parts of digestive tract; F17.210 Nicotine dependence, cigarettes, uncomplicated; Z88.5 Allergy status to narcotic agent; Z91.041 Radiographic dye allergy status

== ENCOUNTER 2019-01-05 12:29 | Emergency (ER) | payer OTHER ==
[~2019-01-05] VITALS: Ht 157.5 cm; Wt 77.1 kg
[2019-01-05 13:53] LABS: HEMATOCRIT 33.1 % (37.0-47.0); HEMOGLOBIN 10.9 gm/dL (12.0-15.0); MCH 25.7 pg (26.0-34.0); MCV 77.7 fL (80.0-100.0); PLATELET COUNT 423 thou/uL (150-400); RBC 4.25 mil/uL (4.20-5.00); RDW 17.5 % (10.5-14.5); WBC 9.1 thou/uL (4.0-11.0)
[2019-01-05 14:00] LABS: ABSOLUTE RETIC COUNT 0.0861 10^6/uL; CREATININE 0.8 mg/dL (0.6-1.0); OBSERVED RETIC COUNT 2.03 % (0.6-2.6); POTASSIUM 3.4 mmol/L (3.5-5.1)
[2019-01-05 14:06] LABS: ALBUMIN 3.5 g/dL (3.4-5.0); TOTAL BILIRUBIN 0.7 mg/dL (<0.1-1.0); TOTAL PROTEIN 6.9 g/dL (6.4-8.2)
[2019-01-05 14:18] LABS: ABSOLUTE NEUTROPHILS 2.8 thou/uL (1.4-8.2); NUCLEATED RBCS 1 /100WBC
[2019-01-05 14:19] LABS: MICROCYTES SLIGHT
[2019-01-05 14:20] LABS: ANISOCYTOSIS 2+; LARGE PLATELETS OCCASIONAL; POLYCHROMASIA OCCASIONAL; TARGET CELLS 2+
[2019-01-05 15:04] LABS: URINE BILIRUBIN NEGATIVE (Negative); URINE BLOOD NEGATIVE (Negative); URINE CLARITY CLOUDY; URINE COLOR YELLOW; URINE GLUCOSE-RANDOM* NEGATIVE (Negative); URINE KETONES NEGATIVE (Negative); URINE LEUKOCYTES-REFLEX 2+ (Negative); URINE NITRITE-REFLEX POSITIVE (Negative); URINE PROTEIN (DIPSTICK) NEGATIVE (Negative); URINE UROBILINOGEN 0.2 E.U./dl (0.2-1.0)
[2019-01-05 15:14] LABS: SQUAMOUS 0-3 Few /LPF (0-3)
[2019-01-05 15:15] LABS: CASTS None Seen /LPF (None Seen); CRYSTALS None Seen /LPF (None Seen); URINE WBC-REFLEX >25 Many /HPF (0-5)
[2019-01-05 15:16] LABS: BACTERIA-REFLEX >30 Many /HPF (None Seen); URINE RBC 0-2 Rare /HPF (0-2); WBC CLUMPS Moderate (None Seen)
[2019-01-05] MEDS ORDERED: MACROBID 100 M100 M1 PO (15:28)
[2019-01-05 16:15] VITALS: BP 109/51
== END 2019-01-05 16:17 | disposition home or self-care (01) ==
LOC: ER 12:29
PROVIDERS: Physician Assistant
DX: N39.0 Urinary tract infection, site not specified (principal); D57.1 Sickle-cell disease without crisis; M79.604 Pain in right leg; M79.605 Pain in left leg; F17.210 Nicotine dependence, cigarettes, uncomplicated; Z88.5 Allergy status to narcotic agent; Z91.041 Radiographic dye allergy status; Z79.899 Other long term (current) drug therapy; Z86.718 Personal history of other venous thrombosis and embolism; Z90.49 Acquired absence of other specified parts of digestive tract

== ENCOUNTER 2019-01-23 09:52 | Emergency (ER) | payer OTHER ==
[~2019-01-23] VITALS: Ht 172.7 cm; Wt 73.5 kg
[~2019-01-23 09:52] MED LIST changes: +MACROBID 100 M100 M1 PO
[2019-01-23 10:54] LABS: ABSOLUTE RETIC COUNT 0.1061 10^6/uL; HEMATOCRIT 32.5 % (37.0-47.0); HEMOGLOBIN 10.6 gm/dL (12.0-15.0); MCH 25.2 pg (26.0-34.0); MCHC 32.8 g/dL (28.0-37.0); MCV 76.9 fL (80.0-100.0); OBSERVED RETIC COUNT 2.51 % (0.6-2.6); RBC 4.22 mil/uL (4.20-5.00); RDW 18.4 % (10.5-14.5)
[2019-01-23 11:27] VITALS: BP 114/82
== END 2019-01-23 11:28 | disposition home or self-care (01) ==
LOC: ER 09:52
PROVIDERS: Emergency Medicine
DX: D57.1 Sickle-cell disease without crisis (principal); F17.210 Nicotine dependence, cigarettes, uncomplicated; Z90.49 Acquired absence of other specified parts of digestive tract; Z90.81 Acquired absence of spleen; Z87.59 Personal history of other complications of pregnancy, childbirth and the puerperium; Z86.711 Personal history of pulmonary embolism; Z86.2 Personal history of diseases of the blood and blood-forming organs and certain disorders involving the immune mechanism; Z88.6 Allergy status to analgesic agent; Z91.041 Radiographic dye allergy status; Z91.018 Allergy to other foods

== ENCOUNTER 2019-02-01 13:16 | Emergency (ER) | payer OTHER ==
[~2019-02-01] VITALS: Ht 157.5 cm; Wt 77.1 kg
[2019-02-01 16:46] VITALS: BP 100/71
== END 2019-02-01 16:47 | disposition home or self-care (01) ==
LOC: ER 13:16
DX: D57.219 Sickle-cell/Hb-C disease with crisis, unspecified (principal); F17.210 Nicotine dependence, cigarettes, uncomplicated; Z90.81 Acquired absence of spleen; Z90.49 Acquired absence of other specified parts of digestive tract; Z86.711 Personal history of pulmonary embolism; Z86.2 Personal history of diseases of the blood and blood-forming organs and certain disorders involving the immune mechanism; Z86.718 Personal history of other venous thrombosis and embolism; Z88.6 Allergy status to analgesic agent; Z91.041 Radiographic dye allergy status; Z91.018 Allergy to other foods

== ENCOUNTER 2019-02-07 20:53 | Inpatient (IN) | payer OTHER ==
[~2019-02-07] VITALS: Ht 157.5 cm; Wt 77.1 kg
[2019-02-07 21:15] VITALS: BP 118/70
[2019-02-07 22:27] LABS: ABSOLUTE NEUTROPHILS 6.8 thou/uL (1.4-8.2); BASOPHILS 0.7 % (0.0-2.0); EOSINOPHILS 2.6 % (0.0-3.0); HEMATOCRIT 33.8 % (37.0-47.0); HEMOGLOBIN 11.4 gm/dL (12.0-15.0); LYMPHOCYTES 33.8 % (24.0-44.0); MCH 26.4 pg (26.0-34.0); MCHC 33.7 g/dL (28.0-37.0); MCV 78.4 fL (80.0-100.0); MONOCYTES 10.1 % (1.0-8.0); PLATELET COUNT 432 thou/uL (150-400); POLYS 52.8 % (36.0-66.0); RBC 4.31 mil/uL (4.20-5.00); RDW 17.3 % (10.5-14.5); WBC 12.9 thou/uL (4.0-11.0)
[2019-02-07 22:28] LABS: URINE BILIRUBIN NEGATIVE (Negative); URINE BLOOD NEGATIVE (Negative); URINE CLARITY CLEAR; URINE COLOR YELLOW; URINE GLUCOSE-RANDOM* NEGATIVE (Negative); URINE KETONES NEGATIVE (Negative); URINE LEUKOCYTES-REFLEX NEGATIVE (Negative); URINE NITRITE-REFLEX NEGATIVE (Negative); URINE PROTEIN (DIPSTICK) NEGATIVE (Negative); URINE UROBILINOGEN 0.2 E.U./dl (0.2-1.0)
[2019-02-07 22:35] LABS: CALCIUM 9.2 mg/dL (8.5-10.1); CREATININE 0.9 mg/dL (0.6-1.0); POTASSIUM 3.6 mmol/L (3.5-5.1)
[2019-02-07 22:40] LABS: ALBUMIN 3.8 g/dL (3.4-5.0); TOTAL BILIRUBIN 0.7 mg/dL (<0.1-1.0); TOTAL PROTEIN 7.5 g/dL (6.4-8.2)
[2019-02-08 00:19] LABS: ABSOLUTE RETIC COUNT 0.1223 10^6/uL; OBSERVED RETIC COUNT 2.85 % (0.6-2.6)
[2019-02-08 00:41] VITALS: BP 113/58
[2019-02-08] MEDS ORDERED: HYDROCODONE (00:57)
[2019-02-08] MEDS ORDERED: HYDROMORPHONE (00:57)
[2019-02-08 02:15] VITALS: BP 114/57
--- NOTE | 2019-02-08 03:45 | NUR ---
NEW PT ARRIVED UNIT @0145. PT A&OX4. PT C/O PAIN AND NAUSEA AND WAS MEDICATED APPROP. NO DAIRRHEA. PT IS SOMEWHAT WEAK. FALL PREC IN PLACE. CALL LIGHT WITHIN REACH. PT IS ON ISOLATION FOR PENDING C.DIFF. PT HASN'T HAD ANY BM YET. WILL CONT. TO MONITOR
[2019-02-08 06:05] LABS: MCH 26.2 pg (26.0-34.0)
[2019-02-08 06:07] LABS: HEMATOCRIT 30.1 % (37.0-47.0); MCHC 33.1 g/dL (28.0-37.0); RBC 3.81 mil/uL (4.20-5.00); RDW 17.4 % (10.5-14.5); WBC 10.3 thou/uL (4.0-11.0)
[2019-02-08 06:21] LABS: CALCIUM 8.3 mg/dL (8.5-10.1); POTASSIUM 3.4 mmol/L (3.5-5.1)
[2019-02-08 08:24] VITALS: BP 84/45
--- NOTE | 2019-02-08 20:02 | NUR ---
PT A&OX4, VSS, GENERALIZED PAIN AT 8. PATIENT DENIES N/V/D TODAY. FLUIDS RAN ORDERED. PATIENT TOLERATING REG DIET. WILL CONTINUE TO MONITOR.
[2019-02-08 21:17] VITALS: BP 119/71
--- NOTE | 2019-02-09 05:03 | NUR ---
ASSUMED CARE OF PT AT 1900HRS. PT IS AOX4 AND UP AD CHAYITO. PT REPRTED PAIN AND WAS TREATED WITH PO PAIN MEDS. PT REPORTS THAT PO PAIN MEDS ARE NOT HELPFUL. IV MEDS WAS GIVEN. VSS AND NO S/S OF ACUTE DISTRESS. WILL CONTINUE TO MONITOR.
[2019-02-09 08:09] VITALS: BP 114/61
[2019-02-09] MEDS ORDERED: CEPACOL SORE T1 EAC7 PO (10:24)
[2019-02-09] MEDS ORDERED: KEFLEX500 M1 PO (10:24)
[2019-02-09] MEDS ORDERED: DILAUDID 2 MG TA2 MG PO (10:25)
[2019-02-09 12:15] VITALS: BP 114/61
--- NOTE | 2019-02-09 14:07 | NUR ---
PT DISCHARGED HOME. PT A&OX4, VSS, PAIN AT AN 8 AT TIMES, MANAGED WITH MEDICAITON. PATIENT VERBALIZED UNDERSTANDING OF PRESCRIPTIONS AND DISCHARGE PAPERWORK. ALL BELONGINGS WITH PATIENT, PORT DEACCESSED. NO SIGNS OF DISTESS AT TIME OF DC.
== END 2019-02-09 15:14 | disposition home or self-care (01) | DRG 391 ==
LOC: ER 20:53 → EROBS 02-08 00:23 → 4W 02-08 00:23
PROVIDERS: Emergency Medicine; Nurse Practitioner Family; ADMIT Hospitalist
DX: K52.9 Noninfective gastroenteritis and colitis, unspecified (principal); D57.00 Hb-SS disease with crisis, unspecified; F11.23 Opioid dependence with withdrawal; G89.29 Other chronic pain; J98.8 Other specified respiratory disorders; J03.90 Acute tonsillitis, unspecified; Z90.81 Acquired absence of spleen; Z90.49 Acquired absence of other specified parts of digestive tract; Z86.718 Personal history of other venous thrombosis and embolism; Z86.711 Personal history of pulmonary embolism; Z88.6 Allergy status to analgesic agent; Z91.041 Radiographic dye allergy status; Z87.891 Personal history of nicotine dependence
CPT/HCPCS: 10040

== ENCOUNTER 2019-03-02 09:04 | Emergency (ER) | payer OTHER ==
[~2019-03-02] VITALS: Ht 157.5 cm; Wt 73.9 kg
[~2019-03-02 09:04] MED LIST changes: +CEPACOL SORE T1 EAC7 PO; +HYDROCODONE; +HYDROMORPHONE
[2019-03-02] MEDS ORDERED: NORCO 10-325 T1 EACH PO (09:12)
[2019-03-02 10:24] LABS: URINE BILIRUBIN NEGATIVE (Negative); URINE BLOOD NEGATIVE (Negative); URINE CLARITY CLOUDY; URINE COLOR YELLOW; URINE GLUCOSE-RANDOM* NEGATIVE (Negative); URINE KETONES NEGATIVE (Negative); URINE LEUKOCYTES-REFLEX NEGATIVE (Negative); URINE NITRITE-REFLEX NEGATIVE (Negative); URINE PROTEIN (DIPSTICK) NEGATIVE (Negative); URINE UROBILINOGEN 0.2 E.U./dl (0.2-1.0)
[2019-03-02 10:28] LABS: HEMATOCRIT 34.2 % (37.0-47.0); HEMOGLOBIN 11.4 gm/dL (12.0-15.0); MCH 26.3 pg (26.0-34.0); MCHC 33.4 g/dL (28.0-37.0); MCV 78.8 fL (80.0-100.0); OBSERVED RETIC COUNT 2.54 % (0.6-2.6); PLATELET COUNT 492 thou/uL (150-400); RBC 4.33 mil/uL (4.20-5.00); RDW 17.5 % (10.5-14.5)
[2019-03-02 10:31] LABS: ALBUMIN 3.7 g/dL (3.4-5.0); CREATININE 0.9 mg/dL (0.6-1.0); TOTAL BILIRUBIN 0.7 mg/dL (<0.1-1.0); TOTAL PROTEIN 7.3 g/dL (6.4-8.2)
[2019-03-02 10:39] LABS: CALCIUM 9.1 mg/dL (8.5-10.1)
[2019-03-02 10:47] LABS: ABSOLUTE NEUTROPHILS 3.4 thou/uL (1.4-8.2); NUCLEATED RBCS 1 /100WBC
[2019-03-02 10:48] LABS: ANISOCYTOSIS 1+
[2019-03-02 10:50] LABS: POIKILOCYTOSIS SLIGHT
[2019-03-02 10:51] LABS: TARGET CELLS 1+
[2019-03-02 12:24] VITALS: BP 103/61
[2019-03-02 13:33] LABS: POTASSIUM 3.4 mmol/L (3.5-5.1)
== END 2019-03-02 12:25 | disposition home or self-care (01) ==
LOC: ER 09:04
PROVIDERS: Emergency Medicine Emergency Medical Services
DX: D57.00 Hb-SS disease with crisis, unspecified (principal); R11.2 Nausea with vomiting, unspecified; R19.7 Diarrhea, unspecified; F17.210 Nicotine dependence, cigarettes, uncomplicated; Z90.81 Acquired absence of spleen; Z90.49 Acquired absence of other specified parts of digestive tract; Z86.718 Personal history of other venous thrombosis and embolism; Z86.711 Personal history of pulmonary embolism; Z88.5 Allergy status to narcotic agent; Z91.041 Radiographic dye allergy status; Z91.018 Allergy to other foods

== ENCOUNTER 2019-03-14 21:39 | Emergency (ER) | payer OTHER ==
[~2019-03-14] VITALS: Ht 157.5 cm; Wt 74.8 kg
[2019-03-14] MEDS ORDERED: XARELTO20 MG PO (22:40)
[2019-03-14 23:01] LABS: URINE BILIRUBIN NEGATIVE (Negative); URINE BLOOD TRACE (Negative); URINE CLARITY CLOUDY; URINE COLOR YELLOW; URINE GLUCOSE-RANDOM* NEGATIVE (Negative); URINE KETONES NEGATIVE (Negative); URINE NITRITE-REFLEX NEGATIVE (Negative); URINE PROTEIN (DIPSTICK) NEGATIVE (Negative); URINE UROBILINOGEN 0.2 E.U./dl (0.2-1.0)
[2019-03-14 23:03] LABS: URINE LEUKOCYTES-REFLEX 3+ (Negative)
[2019-03-14 23:04] LABS: HEMOGLOBIN 11.8 gm/dL (12.0-15.0); MCH 25.4 pg (26.0-34.0); MCV 79.5 fL (80.0-100.0); PLATELET COUNT 449 thou/uL (150-400); RBC 4.66 mil/uL (4.20-5.00); RDW 17.3 % (10.5-14.5); WBC 14.3 thou/uL (4.0-11.0)
[2019-03-14 23:09] LABS: CALCIUM 9.1 mg/dL (8.5-10.1); CREATININE 0.8 mg/dL (0.6-1.0); POTASSIUM 3.9 mmol/L (3.5-5.1)
[2019-03-14 23:10] LABS: CASTS None Seen /LPF (None Seen); CRYSTALS None Seen /LPF (None Seen); MUCUS 0-3 Light strn/LPF (None Seen); SQUAMOUS 0-3 Few /LPF (0-3); URINE RBC 0-2 Rare /HPF (0-2); URINE WBC-REFLEX >25 Many /HPF (0-5)
[2019-03-14 23:15] LABS: ALBUMIN 3.6 g/dL (3.4-5.0); DIRECT BILIRUBIN 0.1 mg/dL (<0.1-0.3); TOTAL BILIRUBIN 0.5 mg/dL (<0.1-1.0); TOTAL PROTEIN 7.2 g/dL (6.4-8.2)
[2019-03-15 00:03] LABS: ABSOLUTE NEUTROPHILS 4.9 thou/uL (1.4-8.2); NUCLEATED RBCS 1 /100WBC
[2019-03-15 00:05] LABS: ANISOCYTOSIS 1+; POIKILOCYTOSIS 1+; SCHISTOCYTES 1+; TARGET CELLS 1+
[2019-03-15 00:06] LABS: LARGE PLATELETS FEW; PLATELET ESTIMATE INCREASED
[2019-03-15] MEDS ORDERED: KEFLEX500 M1 PO (01:04)
[2019-03-15] MEDS ORDERED: ZOFRAN ODT4 MG PO ×2 (01:04→01:16)
[2019-03-15 01:24] VITALS: BP 123/67
[2019-03-16] MEDS ORDERED: ZOFRAN ODT4 MG PO (08:05)
[2019-03-16] MEDS ORDERED: PHENERGAN 25 MG25 M1 PO ×4 (08:05→08:30)
== END 2019-03-15 01:35 | disposition home or self-care (01) ==
LOC: ER 21:39
PROVIDERS: Emergency Medicine
DX: D57.00 Hb-SS disease with crisis, unspecified (principal); N39.0 Urinary tract infection, site not specified; R11.2 Nausea with vomiting, unspecified; R19.7 Diarrhea, unspecified; F17.210 Nicotine dependence, cigarettes, uncomplicated; Z90.81 Acquired absence of spleen; Z90.49 Acquired absence of other specified parts of digestive tract; Z86.2 Personal history of diseases of the blood and blood-forming organs and certain disorders involving the immune mechanism; Z86.711 Personal history of pulmonary embolism; Z86.718 Personal history of other venous thrombosis and embolism; Z88.5 Allergy status to narcotic agent; Z91.041 Radiographic dye allergy status; Z88.8 Allergy status to other drugs, medicaments and biological substances

== ENCOUNTER 2019-03-16 06:10 | Emergency (ER) | payer OTHER ==
[~2019-03-16] VITALS: Ht 157.5 cm; Wt 74.8 kg
[2019-03-16 06:59] LABS: URINE BILIRUBIN NEGATIVE (Negative); URINE BLOOD NEGATIVE (Negative); URINE CLARITY CLEAR; URINE COLOR YELLOW; URINE GLUCOSE-RANDOM* NEGATIVE (Negative); URINE KETONES NEGATIVE (Negative); URINE LEUKOCYTES-REFLEX NEGATIVE (Negative); URINE NITRITE-REFLEX NEGATIVE (Negative); URINE PROTEIN (DIPSTICK) NEGATIVE (Negative); URINE SPECIFIC GRAVITY <= 1.005 (1.005-1.035); URINE UROBILINOGEN 0.2 E.U./dl (0.2-1.0)
[2019-03-16 07:19] LABS: HEMOGLOBIN 12.1 gm/dL (12.0-15.0); MCH 25.2 pg (26.0-34.0); MCHC 31.8 g/dL (28.0-37.0); PLATELET COUNT 449 thou/uL (150-400); RBC 4.81 mil/uL (4.20-5.00); RDW 17.3 % (10.5-14.5); WBC 12.2 thou/uL (4.0-11.0)
[2019-03-16 07:32] LABS: CALCIUM 9.3 mg/dL (8.5-10.1); CREATININE 0.9 mg/dL (0.6-1.0); POTASSIUM 3.9 mmol/L (3.5-5.1)
[2019-03-16 07:39] LABS: ALBUMIN 3.9 g/dL (3.4-5.0); TOTAL BILIRUBIN 0.6 mg/dL (<0.1-1.0); TOTAL PROTEIN 7.6 g/dL (6.4-8.2)
[2019-03-16] MEDS ORDERED: PHENERGAN 25 MG25 M1 PO ×6 (08:05→08:30)
[2019-03-16] MEDS ORDERED: ZOFRAN ODT4 MG PO (08:05)
[2019-03-16 08:19] LABS: ABSOLUTE NEUTROPHILS 7.8 thou/uL (1.4-8.2)
[2019-03-16 08:21] LABS: ANISOCYTOSIS 1+; TARGET CELLS 3+
[2019-03-16 09:03] VITALS: BP 111/62
== END 2019-03-16 09:07 | disposition home or self-care (01) ==
LOC: ER 06:10
PROVIDERS: Emergency Medicine
DX: R19.7 Diarrhea, unspecified (principal); R11.2 Nausea with vomiting, unspecified; R10.13 Epigastric pain; D57.1 Sickle-cell disease without crisis; F19.939 Other psychoactive substance use, unspecified with withdrawal, unspecified; F17.210 Nicotine dependence, cigarettes, uncomplicated; Z90.49 Acquired absence of other specified parts of digestive tract; Z86.718 Personal history of other venous thrombosis and embolism; Z86.711 Personal history of pulmonary embolism; Z86.2 Personal history of diseases of the blood and blood-forming organs and certain disorders involving the immune mechanism; Z91.041 Radiographic dye allergy status; Z91.018 Allergy to other foods; Z88.6 Allergy status to analgesic agent

== ENCOUNTER 2019-03-23 13:05 | Emergency (ER) | payer OTHER ==
[~2019-03-23] VITALS: Ht 157.5 cm; Wt 75.8 kg
[2019-03-23 13:36] LABS: URINE BILIRUBIN NEGATIVE (Negative); URINE BLOOD TRACE (Negative); URINE CLARITY CLEAR; URINE COLOR YELLOW; URINE GLUCOSE-RANDOM* NEGATIVE (Negative); URINE KETONES NEGATIVE (Negative); URINE LEUKOCYTES-REFLEX NEGATIVE (Negative); URINE NITRITE-REFLEX NEGATIVE (Negative); URINE PROTEIN (DIPSTICK) NEGATIVE (Negative); URINE UROBILINOGEN 0.2 E.U./dl (0.2-1.0)
[2019-03-23 15:18] LABS: CALCIUM 8.9 mg/dL (8.5-10.1); CREATININE 0.8 mg/dL (0.6-1.0); POTASSIUM 3.9 mmol/L (3.5-5.1)
[2019-03-23 15:19] LABS: HEMATOCRIT 34.8 % (37.0-47.0); HEMOGLOBIN 11.4 gm/dL (12.0-15.0); MCH 25.7 pg (26.0-34.0); MCHC 32.7 g/dL (28.0-37.0); MCV 78.7 fL (80.0-100.0); OBSERVED RETIC COUNT 1.69 % (0.6-2.6); PLATELET COUNT 432 thou/uL (150-400); RBC 4.43 mil/uL (4.20-5.00); RDW 17.9 % (10.5-14.5); WBC 16.6 thou/uL (4.0-11.0)
[2019-03-23 15:25] LABS: ALBUMIN 3.5 g/dL (3.4-5.0); TOTAL BILIRUBIN 0.6 mg/dL (<0.1-1.0); TOTAL PROTEIN 7.4 g/dL (6.4-8.2)
[2019-03-23 16:09] LABS: ABSOLUTE NEUTROPHILS 9.8 thou/uL (1.4-8.2); ATYPICAL LYMPHS 1 %
[2019-03-23 16:10] LABS: ANISOCYTOSIS 1+
[2019-03-23 18:35] VITALS: BP 98/46
== END 2019-03-23 18:37 | disposition home or self-care (01) ==
LOC: ER 13:05
PROVIDERS: Emergency Medicine; Physician Assistant
DX: D57.00 Hb-SS disease with crisis, unspecified (principal); M54.5 Low back pain; R10.31 Right lower quadrant pain; F17.210 Nicotine dependence, cigarettes, uncomplicated; Z90.49 Acquired absence of other specified parts of digestive tract; Z86.718 Personal history of other venous thrombosis and embolism; Z86.711 Personal history of pulmonary embolism; Z86.2 Personal history of diseases of the blood and blood-forming organs and certain disorders involving the immune mechanism; Z91.041 Radiographic dye allergy status; Z91.018 Allergy to other foods; Z88.6 Allergy status to analgesic agent

== ENCOUNTER 2019-04-05 13:38 | Emergency (ER) | payer OTHER ==
[~2019-04-05] VITALS: Ht 157.5 cm; Wt 75.8 kg
[2019-04-05 18:06] VITALS: BP 104/63
== END 2019-04-05 18:07 | disposition home or self-care (01) ==
LOC: ER 13:38
DX: D57.00 Hb-SS disease with crisis, unspecified (principal); R11.10 Vomiting, unspecified; F17.210 Nicotine dependence, cigarettes, uncomplicated; Z90.49 Acquired absence of other specified parts of digestive tract; Z86.711 Personal history of pulmonary embolism; Z86.2 Personal history of diseases of the blood and blood-forming organs and certain disorders involving the immune mechanism; Z91.018 Allergy to other foods; Z91.041 Radiographic dye allergy status; Z88.6 Allergy status to analgesic agent

== ENCOUNTER 2019-04-09 03:39 | Emergency (ER) | payer OTHER ==
[~2019-04-09] VITALS: Ht 157.5 cm; Wt 75.8 kg
[2019-04-09 04:45] LABS: URINE BILIRUBIN NEGATIVE (Negative); URINE BLOOD NEGATIVE (Negative); URINE CLARITY CLEAR; URINE COLOR YELLOW; URINE GLUCOSE-RANDOM* NEGATIVE (Negative); URINE KETONES NEGATIVE (Negative); URINE LEUKOCYTES-REFLEX NEGATIVE (Negative); URINE NITRITE-REFLEX NEGATIVE (Negative); URINE PROTEIN (DIPSTICK) NEGATIVE (Negative); URINE UROBILINOGEN 0.2 E.U./dl (0.2-1.0)
[2019-04-09 07:14] LABS: CALCIUM 8.7 mg/dL (8.5-10.1); CREATININE 0.8 mg/dL (0.6-1.0); POTASSIUM 4.6 mmol/L (3.5-5.1)
[2019-04-09 07:21] LABS: ALBUMIN 3.7 g/dL (3.4-5.0); DIRECT BILIRUBIN 0.1 mg/dL (<0.1-0.3); TOTAL BILIRUBIN 0.5 mg/dL (<0.1-1.0); TOTAL PROTEIN 7.1 g/dL (6.4-8.2)
[2019-04-09 07:28] LABS: HEMATOCRIT 36.1 % (37.0-47.0); HEMOGLOBIN 11.6 gm/dL (12.0-15.0); MCH 25.6 pg (26.0-34.0); MCHC 32.2 g/dL (28.0-37.0); MCV 79.5 fL (80.0-100.0); OBSERVED RETIC COUNT 1.99 % (0.6-2.6); PLATELET COUNT 496 thou/uL (150-400); RBC 4.54 mil/uL (4.20-5.00); RDW 17.3 % (10.5-14.5); WBC 11.2 thou/uL (4.0-11.0)
[2019-04-09 07:55] LABS: ABSOLUTE NEUTROPHILS 5.7 thou/uL (1.4-8.2)
[2019-04-09 07:57] LABS: ANISOCYTOSIS 1+
[2019-04-09 07:59] LABS: TARGET CELLS 2+
[2019-04-09 08:51] VITALS: BP 103/62
== END 2019-04-09 08:53 | disposition home or self-care (01) ==
LOC: ER 03:39
PROVIDERS: Emergency Medicine
DX: D57.00 Hb-SS disease with crisis, unspecified (principal); R19.7 Diarrhea, unspecified; F17.210 Nicotine dependence, cigarettes, uncomplicated; Z90.49 Acquired absence of other specified parts of digestive tract; Z86.711 Personal history of pulmonary embolism; Z86.2 Personal history of diseases of the blood and blood-forming organs and certain disorders involving the immune mechanism; Z91.041 Radiographic dye allergy status; Z91.018 Allergy to other foods; Z88.6 Allergy status to analgesic agent

== ENCOUNTER 2019-04-18 11:02 | Emergency (ER) | payer OTHER ==
[~2019-04-18] VITALS: Ht 157.5 cm; Wt 75.8 kg
[2019-04-18 11:27] LABS: URINE BILIRUBIN NEGATIVE (Negative); URINE BLOOD NEGATIVE (Negative); URINE CLARITY CLEAR; URINE COLOR YELLOW; URINE GLUCOSE-RANDOM* NEGATIVE (Negative); URINE KETONES NEGATIVE (Negative); URINE LEUKOCYTES-REFLEX NEGATIVE (Negative); URINE NITRITE-REFLEX NEGATIVE (Negative); URINE PROTEIN (DIPSTICK) NEGATIVE (Negative); URINE UROBILINOGEN 0.2 E.U./dl (0.2-1.0)
[2019-04-18 12:44] LABS: CALCIUM 8.8 mg/dL (8.5-10.1); CREATININE 0.8 mg/dL (0.6-1.0); POTASSIUM 3.7 mmol/L (3.5-5.1)
[2019-04-18 12:45] LABS: ABSOLUTE RETIC COUNT 0.0955 10^6/uL; HEMATOCRIT 34.1 % (37.0-47.0); HEMOGLOBIN 11.2 gm/dL (12.0-15.0); MCH 26.1 pg (26.0-34.0); OBSERVED RETIC COUNT 2.21 % (0.6-2.6); PLATELET COUNT 452 thou/uL (150-400); RBC 4.32 mil/uL (4.20-5.00); RDW 17.9 % (10.5-14.5); WBC 10.5 thou/uL (4.0-11.0)
[2019-04-18 12:49] LABS: ALBUMIN 3.4 g/dL (3.4-5.0); TOTAL BILIRUBIN 0.6 mg/dL (<0.1-1.0); TOTAL PROTEIN 6.8 g/dL (6.4-8.2)
[2019-04-18 13:41] LABS: ABSOLUTE NEUTROPHILS 5.9 thou/uL (1.4-8.2); ANISOCYTOSIS 2+; HYPOCHROMASIA SLIGHT; NUCLEATED RBCS 1 /100WBC; PLATELET ESTIMATE NORMAL; POIKILOCYTOSIS SLIGHT; TARGET CELLS 1+
[2019-04-18 13:50] VITALS: BP 113/57
== END 2019-04-18 13:52 | disposition home or self-care (01) ==
LOC: ER 11:02
PROVIDERS: Physician Assistant
DX: D57.1 Sickle-cell disease without crisis (principal); M79.605 Pain in left leg; M79.604 Pain in right leg; M79.602 Pain in left arm; M79.601 Pain in right arm; F17.210 Nicotine dependence, cigarettes, uncomplicated; Z86.711 Personal history of pulmonary embolism; Z86.2 Personal history of diseases of the blood and blood-forming organs and certain disorders involving the immune mechanism; Z90.49 Acquired absence of other specified parts of digestive tract; Z91.018 Allergy to other foods; Z91.041 Radiographic dye allergy status; Z88.6 Allergy status to analgesic agent

== ENCOUNTER 2019-06-06 08:57 | Emergency (ER) | payer OTHER ==
[~2019-06-06] VITALS: Ht 157.5 cm; Wt 74.8 kg
[2019-06-06 09:27] LABS: URINE BILIRUBIN NEGATIVE (Negative); URINE BLOOD NEGATIVE (Negative); URINE CLARITY CLEAR; URINE COLOR YELLOW; URINE GLUCOSE-RANDOM* NEGATIVE (Negative); URINE KETONES NEGATIVE (Negative); URINE LEUKOCYTES-REFLEX NEGATIVE (Negative); URINE NITRITE-REFLEX NEGATIVE (Negative); URINE PROTEIN (DIPSTICK) NEGATIVE (Negative); URINE UROBILINOGEN 0.2 E.U./dl (0.2-1.0)
[2019-06-06 11:44] LABS: HEMOGLOBIN 11.3 gm/dL (12.0-15.0)
[2019-06-06 11:46] LABS: HEMATOCRIT 34.6 % (37.0-47.0); MCH 25.9 pg (26.0-34.0); MCHC 32.7 g/dL (28.0-37.0); MCV 79.1 fL (80.0-100.0); PLATELET COUNT 382 thou/uL (150-400); RBC 4.38 mil/uL (4.20-5.00); RDW 17.4 % (10.5-14.5); WBC 9.5 thou/uL (4.0-11.0)
[2019-06-06 11:48] LABS: ABSOLUTE RETIC COUNT 0.0569 10^6/uL; OBSERVED RETIC COUNT 1.28 % (0.6-2.6)
[2019-06-06 11:56] LABS: ANION GAP 11 mmol/L (7-16); BUN 7 mg/dL (7-18); CALCIUM 8.4 mg/dL (8.5-10.1); CHLORIDE 107 mmol/L (98-107); CO2 22 mmol/L (21-32); GLUCOSE 120 mg/dL (74-106); POTASSIUM 4.1 mmol/L (3.5-5.1); SODIUM 140 mmol/L (136-145)
[2019-06-06 11:58] LABS: APTT 30.2 Seconds (24.5-32.8); INR 1.1; PROTIME 11.4 Seconds (9.3-11.4)
[2019-06-06 12:06] LABS: ALBUMIN 3.8 g/dL (3.4-5.0); SGOT 13 U/L (15-37); SGPT 16 U/L (30-65); TOTAL BILIRUBIN 0.7 mg/dL (<0.1-1.0); TOTAL PROTEIN 7.1 g/dL (6.4-8.2); TROPONIN-I <0.06 ng/mL (<0.06)
[2019-06-06 12:35] LABS: ABSOLUTE NEUTROPHILS 5.8 thou/uL (1.4-8.2); NUCLEATED RBCS 1 /100WBC; PLATELET ESTIMATE NORMAL
[2019-06-06] MEDS ORDERED: NORCO 5-325 TA1 EAC1 PO (13:16)
[2019-06-06] MEDS ORDERED: ONDANSETRON ODT8 MG PO (13:16)
[2019-06-06 13:29] VITALS: BP 110/45
--- NOTE | 2019-06-08 14:58 | EKG ---
[place] [address] [facility] [place] [address] ELECTROCARDIOGRAM REPORT Name: ROMARIO BLEDSOE Room [facility]: [facility]P [facility] [id number] Admission: 06/06/19 Attend Phys: Discharge: 06/06/19 Date of : 78 Report #: [id number] THIS REPORT FOR: //name// [facility] ED Test Date: 2019-06-06 Test Time: 09:42:36 Pat Name: ROMARIO BLEDSOE Department: Room: Gender: F Optometry Assistant: jg : 1980 Requested By: Christophe Bates Order Number: [id number] MD: Michael Mcmillan Measurements Intervals [place] Rate: 101 P: 68 AR: 141 QRS: 37 QRSD: 135 T: -39 QT: 386 QTc: 501 Interpretive Statements Sinus tachycardia Nonspecific intraventricular conduction delay Nonspecific T abnormalities, diffuse leads Compared to ECG 12/10/2018 12:35:59 Intraventricular conduction delay now present Sinus rhythm no longer present T-wave abnormality still present Electronically Signed On 06-08-2019 14:58:12 APPOINTMENT CLERK by Michael Mcmillan [email or web address] <ELECTRONICALLY SIGNED> By: Michael Mcmillan MD 06/08/19 1458 0942 0942 Michael Mcmillan MD /TREVA
== END 2019-06-06 13:29 | disposition home or self-care (01) ==
LOC: ER 08:57
PROVIDERS: Emergency Medicine
DX: D57.00 Hb-SS disease with crisis, unspecified (principal); R11.2 Nausea with vomiting, unspecified; R50.9 Fever, unspecified; Z90.49 Acquired absence of other specified parts of digestive tract; Z86.718 Personal history of other venous thrombosis and embolism; Z86.711 Personal history of pulmonary embolism; Z86.2 Personal history of diseases of the blood and blood-forming organs and certain disorders involving the immune mechanism; Z87.891 Personal history of nicotine dependence; Z91.041 Radiographic dye allergy status; Z91.018 Allergy to other foods; Z88.6 Allergy status to analgesic agent

== ENCOUNTER 2019-07-05 07:56 | Emergency (ER) | payer BC, OTHER ==
[~2019-07-05] VITALS: Ht 157.5 cm; Wt 77.6 kg
[~2019-07-05 07:56] MED LIST changes: +NORCO 5-325 TA1 EAC1 PO
[2019-07-05 09:02] LABS: HEMATOCRIT 36.8 % (37.0-47.0); HEMOGLOBIN 12.1 gm/dL (12.0-15.0); MCH 25.9 pg (26.0-34.0); MCHC 32.8 g/dL (28.0-37.0); MCV 78.8 fL (80.0-100.0); OBSERVED RETIC COUNT 1.66 % (0.6-2.6); RBC 4.67 mil/uL (4.20-5.00); RDW 17.4 % (10.5-14.5); WBC 11.3 thou/uL (4.0-11.0)
[2019-07-05 09:06] LABS: CALCIUM 9.2 mg/dL (8.5-10.1); CREATININE 0.9 mg/dL (0.6-1.0); POTASSIUM 3.8 mmol/L (3.5-5.1)
[2019-07-05 09:12] LABS: ALBUMIN 3.8 g/dL (3.4-5.0); TOTAL BILIRUBIN 0.7 mg/dL (<0.1-1.0); TOTAL PROTEIN 7.3 g/dL (6.4-8.2)
[2019-07-05 10:16] LABS: ANISOCYTOSIS 1+
[2019-07-05 10:17] LABS: TARGET CELLS FEW
[2019-07-05 10:19] LABS: PLATELET COUNT 386 thou/uL (150-400)
[2019-07-05] MEDS ORDERED: NORCO 10-325 T1 EAC1 PO (10:38)
[2019-07-05 10:40] VITALS: BP 119/62
== END 2019-07-05 10:40 | disposition home or self-care (01) ==
LOC: ER 07:56
PROVIDERS: Emergency Medicine
DX: D57.00 Hb-SS disease with crisis, unspecified (principal); Z90.49 Acquired absence of other specified parts of digestive tract; Z90.81 Acquired absence of spleen; Z86.718 Personal history of other venous thrombosis and embolism; Z88.5 Allergy status to narcotic agent; Z91.041 Radiographic dye allergy status; Z87.891 Personal history of nicotine dependence

== ENCOUNTER 2019-07-30 13:07 | Emergency (ER) | payer BC, OTHER ==
[~2019-07-30] VITALS: Ht 157.5 cm; Wt 77.6 kg
[~2019-07-30 13:07] MED LIST changes: +NORCO 10-325 T1 EAC1 PO
[2019-07-30 13:56] LABS: HEMATOCRIT 33.9 % (37.0-47.0); MCH 25.7 pg (26.0-34.0); MCHC 32.4 g/dL (28.0-37.0); MCV 79.2 fL (80.0-100.0); PLATELET COUNT 453 thou/uL (150-400); RBC 4.28 mil/uL (4.20-5.00); RDW 16.7 % (10.5-14.5); WBC 14.1 thou/uL (4.0-11.0)
[2019-07-30 14:00] LABS: CALCIUM 8.8 mg/dL (8.5-10.1); POTASSIUM 3.7 mmol/L (3.5-5.1)
[2019-07-30 14:01] LABS: ABSOLUTE RETIC COUNT 0.1249 10^6/uL; OBSERVED RETIC COUNT 2.92 % (0.6-2.6)
[2019-07-30 14:06] LABS: ALBUMIN 3.8 g/dL (3.4-5.0); TOTAL BILIRUBIN 0.6 mg/dL (<0.1-1.0); TOTAL PROTEIN 7.8 g/dL (6.4-8.2)
[2019-07-30 14:12] LABS: ABSOLUTE NEUTROPHILS 8.6 thou/uL (1.4-8.2)
[2019-07-30 14:13] LABS: ANISOCYTOSIS 1+
[2019-07-30 14:14] LABS: TARGET CELLS FEW
[2019-07-30 14:53] VITALS: BP 109/42
== END 2019-07-30 14:55 | disposition home or self-care (01) ==
LOC: ER 13:07
PROVIDERS: Emergency Medicine
DX: D57.00 Hb-SS disease with crisis, unspecified (principal); Z90.49 Acquired absence of other specified parts of digestive tract; Z86.2 Personal history of diseases of the blood and blood-forming organs and certain disorders involving the immune mechanism; Z90.81 Acquired absence of spleen; Z88.5 Allergy status to narcotic agent; Z91.041 Radiographic dye allergy status; Z87.891 Personal history of nicotine dependence

== ENCOUNTER 2019-08-06 07:29 | Emergency (ER) | payer BC, OTHER ==
[~2019-08-06] VITALS: Ht 157.5 cm; Wt 77.1 kg
[2019-08-06 07:49] LABS: URINE BILIRUBIN NEGATIVE (Negative); URINE BLOOD TRACE (Negative); URINE CLARITY CLOUDY; URINE COLOR YELLOW; URINE GLUCOSE-RANDOM* NEGATIVE (Negative); URINE KETONES NEGATIVE (Negative); URINE LEUKOCYTES-REFLEX 3+ (Negative); URINE NITRITE-REFLEX POSITIVE (Negative); URINE PROTEIN (DIPSTICK) NEGATIVE (Negative); URINE UROBILINOGEN 0.2 E.U./dl (0.2-1.0)
[2019-08-06 08:06] LABS: ABSOLUTE RETIC COUNT 0.1136 10^6/uL; HEMATOCRIT 36.5 % (37.0-47.0); HEMOGLOBIN 11.8 gm/dL (12.0-15.0); MCH 25.7 pg (26.0-34.0); MCHC 32.3 g/dL (28.0-37.0); MCV 79.5 fL (80.0-100.0); OBSERVED RETIC COUNT 2.48 % (0.6-2.6); PLATELET COUNT 474 thou/uL (150-400); RBC 4.59 mil/uL (4.20-5.00); RDW 17.1 % (10.5-14.5); WBC 16.2 thou/uL (4.0-11.0)
[2019-08-06 08:29] LABS: CALCIUM 9.4 mg/dL (8.5-10.1); POTASSIUM 3.4 mmol/L (3.5-5.1)
[2019-08-06 08:35] LABS: ALBUMIN 3.9 g/dL (3.4-5.0); TOTAL BILIRUBIN 0.8 mg/dL (<0.1-1.0); TOTAL PROTEIN 7.8 g/dL (6.4-8.2)
[2019-08-06 08:58] LABS: CASTS None Seen /LPF (None Seen); CRYSTALS None Seen /LPF (None Seen); SQUAMOUS >10 Many /LPF (0-3)
[2019-08-06 08:59] LABS: BACTERIA-REFLEX >30 Many /HPF (None Seen); URINE RBC 0-2 Rare /HPF (0-2); URINE WBC-REFLEX >25 Many /HPF (0-5)
[2019-08-06 09:33] LABS: ABSOLUTE NEUTROPHILS 11.2 thou/uL (1.4-8.2)
[2019-08-06 09:34] LABS: ANISOCYTOSIS 1+; TARGET CELLS 1+
[2019-08-06 09:35] LABS: MICROCYTES FEW
[2019-08-06] MEDS ORDERED: KEFLEX500 M1 PO ×2 (10:02→10:05)
[2019-08-06 11:04] VITALS: BP 111/52
[2019-08-07] MEDS ORDERED: MACROBID 100 M100 M1 PO (11:49)
[2019-08-07] MEDS ORDERED: ZOFRAN ODT4 MG PO (11:49)
== END 2019-08-06 11:07 | disposition home or self-care (01) ==
LOC: ER 07:29
PROVIDERS: Student in an Organized Health Care Education/Training Program
DX: N39.0 Urinary tract infection, site not specified (principal); R11.2 Nausea with vomiting, unspecified; D57.1 Sickle-cell disease without crisis; Z90.49 Acquired absence of other specified parts of digestive tract; Z86.711 Personal history of pulmonary embolism; Z86.2 Personal history of diseases of the blood and blood-forming organs and certain disorders involving the immune mechanism; Z87.891 Personal history of nicotine dependence; Z91.018 Allergy to other foods; Z91.041 Radiographic dye allergy status; Z88.6 Allergy status to analgesic agent

== ENCOUNTER 2019-08-07 08:50 | Emergency (ER) | payer BC, OTHER ==
[~2019-08-07] VITALS: Ht 157.5 cm; Wt 77.1 kg
[2019-08-07 09:33] LABS: HEMATOCRIT 35.1 % (37.0-47.0); MCV 78.9 fL (80.0-100.0); RBC 4.45 mil/uL (4.20-5.00)
[2019-08-07 09:35] LABS: HEMOGLOBIN 11.5 gm/dL (12.0-15.0); MCH 25.9 pg (26.0-34.0); MCHC 32.8 g/dL (28.0-37.0); PLATELET COUNT 451 thou/uL (150-400); RDW 17.2 % (10.5-14.5); WBC 14.5 thou/uL (4.0-11.0)
[2019-08-07 09:42] LABS: CALCIUM 9.1 mg/dL (8.5-10.1); CREATININE 0.9 mg/dL (0.6-1.0); POTASSIUM 3.6 mmol/L (3.5-5.1)
[2019-08-07 09:48] LABS: ALBUMIN 3.7 g/dL (3.4-5.0); DIRECT BILIRUBIN 0.1 mg/dL (<0.1-0.2); TOTAL BILIRUBIN 0.6 mg/dL (<0.1-1.0); TOTAL PROTEIN 7.6 g/dL (6.4-8.2)
[2019-08-07 09:58] LABS: ABSOLUTE NEUTROPHILS 9.6 thou/uL (1.4-8.2); NUCLEATED RBCS 1 /100WBC; PLATELET ESTIMATE NORMAL
[2019-08-07] MEDS ORDERED: ZOFRAN ODT4 MG PO (11:49)
[2019-08-07] MEDS ORDERED: MACROBID 100 M100 M1 PO (11:49)
[2019-08-07 12:09] VITALS: BP 108/83
== END 2019-08-07 12:11 | disposition home or self-care (01) ==
LOC: ER 08:50
PROVIDERS: Emergency Medicine
DX: D57.1 Sickle-cell disease without crisis (principal); N39.0 Urinary tract infection, site not specified; Z87.891 Personal history of nicotine dependence; Z88.6 Allergy status to analgesic agent; Z91.048 Other nonmedicinal substance allergy status; Z91.09 Other allergy status, other than to drugs and biological substances; Z90.49 Acquired absence of other specified parts of digestive tract; Z86.718 Personal history of other venous thrombosis and embolism; Z86.711 Personal history of pulmonary embolism

== ENCOUNTER 2019-10-23 19:45 | Emergency (ER) | payer BC, OTHER ==
[~2019-10-23] VITALS: Ht 157.5 cm; Wt 72.6 kg
[2019-10-23 21:14] VITALS: BP 113/68
== END 2019-10-23 21:58 | disposition home or self-care (01) ==
LOC: ER 19:45
DX: S93.401A Sprain of unspecified ligament of right ankle, initial encounter (principal); Z90.89 Acquired absence of other organs; Z90.49 Acquired absence of other specified parts of digestive tract; Z86.718 Personal history of other venous thrombosis and embolism; Z86.711 Personal history of pulmonary embolism; Z79.899 Other long term (current) drug therapy; Z88.5 Allergy status to narcotic agent; Z91.041 Radiographic dye allergy status; Z91.018 Allergy to other foods; Z87.891 Personal history of nicotine dependence; W18.31XA Fall on same level due to stepping on an object, initial encounter; Y93.89 Activity, other specified; Y92.89 Other specified places as the place of occurrence of the external cause; Y99.8 Other external cause status

== ENCOUNTER 2019-10-31 15:58 | Emergency (ER) | payer BC, OTHER ==
[~2019-10-31] VITALS: Ht 157.5 cm; Wt 65.8 kg
[2019-10-31 18:31] VITALS: BP 108/68
== END 2019-10-31 18:33 | disposition home or self-care (01) ==
LOC: ER 15:58
DX: S93.401A Sprain of unspecified ligament of right ankle, initial encounter (principal); D57.00 Hb-SS disease with crisis, unspecified; M79.662 Pain in left lower leg; R11.0 Nausea; Z79.899 Other long term (current) drug therapy; Z88.6 Allergy status to analgesic agent; Z87.891 Personal history of nicotine dependence; Z91.041 Radiographic dye allergy status; Z91.018 Allergy to other foods; Z90.49 Acquired absence of other specified parts of digestive tract; X58.XXXA Exposure to other specified factors, initial encounter; Y93.89 Activity, other specified; Y92.89 Other specified places as the place of occurrence of the external cause; Y99.8 Other external cause status

== ENCOUNTER 2019-11-07 13:16 | Emergency (ER) | payer BC, OTHER ==
[~2019-11-07] VITALS: Ht 157.5 cm; Wt 72.6 kg
[2019-11-07 14:42] LABS: HEMATOCRIT 35.5 % (37.0-47.0); HEMOGLOBIN 11.9 gm/dL (12.0-15.0); MCH 26.4 pg (26.0-34.0); MCHC 33.4 g/dL (28.0-37.0); MCV 79.2 fL (80.0-100.0); PLATELET COUNT 431 thou/uL (150-400); RBC 4.49 mil/uL (4.20-5.00); WBC 10.4 thou/uL (4.0-11.0)
[2019-11-07 14:52] LABS: CALCIUM 9.6 mg/dL (8.5-10.1); POTASSIUM 3.5 mmol/L (3.5-5.1)
[2019-11-07 14:59] LABS: ALBUMIN 4.1 g/dL (3.4-5.0); TOTAL PROTEIN 7.9 g/dL (6.4-8.2)
[2019-11-07 15:20] LABS: ABSOLUTE NEUTROPHILS 8.6 thou/uL (1.4-8.2); PLATELET ESTIMATE NORMAL
[2019-11-07 16:00] VITALS: BP 111/57
== END 2019-11-07 16:02 | disposition home or self-care (01) ==
LOC: ER 13:16
PROVIDERS: Emergency Medicine
DX: R10.9 Unspecified abdominal pain (principal); R11.2 Nausea with vomiting, unspecified; R19.7 Diarrhea, unspecified; Z87.891 Personal history of nicotine dependence; Z79.899 Other long term (current) drug therapy; Z88.5 Allergy status to narcotic agent; Z91.041 Radiographic dye allergy status; Z90.49 Acquired absence of other specified parts of digestive tract; Z87.01 Personal history of pneumonia (recurrent); Z86.711 Personal history of pulmonary embolism; Z86.718 Personal history of other venous thrombosis and embolism

== ENCOUNTER 2019-12-04 14:57 | Emergency (ER) | payer BC, OTHER ==
[~2019-12-04] VITALS: Ht 157.5 cm; Wt 72.6 kg
[2019-12-04 16:48] LABS: ABSOLUTE RETIC COUNT 0.1077 10^6/uL; OBSERVED RETIC COUNT 2.49 % (0.6-2.6)
[2019-12-04 16:49] LABS: HEMATOCRIT 34.2 % (37.0-47.0); HEMOGLOBIN 11.4 gm/dL (12.0-15.0); MCH 26.4 pg (26.0-34.0); MCHC 33.3 g/dL (28.0-37.0); MCV 79.3 fL (80.0-100.0); PLATELET COUNT 453 thou/uL (150-400); RBC 4.32 mil/uL (4.20-5.00); RDW 17.2 % (10.5-14.5); WBC 20.9 thou/uL (4.0-11.0)
[2019-12-04 16:56] LABS: CALCIUM 8.8 mg/dL (8.5-10.1); POTASSIUM 3.7 mmol/L (3.5-5.1)
[2019-12-04 16:59] LABS: INR 1.1; PROTIME 11.4 Seconds (9.3-11.4)
[2019-12-04 17:02] LABS: ALBUMIN 3.8 g/dL (3.4-5.0); TOTAL BILIRUBIN 1.1 mg/dL (0.2-1.0); TOTAL PROTEIN 7.2 g/dL (6.4-8.2)
[2019-12-04 17:09] LABS: ABSOLUTE NEUTROPHILS 16.5 thou/uL (1.4-8.2); ANISOCYTOSIS 2+; MICROCYTES 1+
[2019-12-04 17:10] LABS: POLYCHROMASIA OCCASIONAL
[2019-12-04 17:16] LABS: URINE BILIRUBIN NEGATIVE (Negative); URINE BLOOD TRACE (Negative); URINE CLARITY CLEAR; URINE COLOR YELLOW; URINE GLUCOSE-RANDOM* NEGATIVE (Negative); URINE KETONES NEGATIVE (Negative); URINE LEUKOCYTES-REFLEX TRACE (Negative); URINE NITRITE-REFLEX NEGATIVE (Negative); URINE PROTEIN (DIPSTICK) NEGATIVE (Negative); URINE SPECIFIC GRAVITY 1.015 (1.005-1.035)
[2019-12-04 17:47] VITALS: BP 116/76
== END 2019-12-04 18:34 | disposition home or self-care (01) ==
LOC: ER 14:57
PROVIDERS: Physician Assistant
DX: M25.571 Pain in right ankle and joints of right foot (principal); D57.1 Sickle-cell disease without crisis; Z86.718 Personal history of other venous thrombosis and embolism; Z86.711 Personal history of pulmonary embolism; Z90.89 Acquired absence of other organs; Z90.49 Acquired absence of other specified parts of digestive tract; Z79.899 Other long term (current) drug therapy; Z88.5 Allergy status to narcotic agent; Z91.041 Radiographic dye allergy status; Z91.018 Allergy to other foods; Z87.891 Personal history of nicotine dependence

== ENCOUNTER 2020-01-01 16:13 | Emergency (ER) | payer BC, OTHER ==
[~2020-01-01] VITALS: Ht 157.5 cm; Wt 70.3 kg
[2020-01-01 16:34] LABS: URINE BILIRUBIN NEGATIVE (Negative); URINE BLOOD NEGATIVE (Negative); URINE CLARITY CLEAR; URINE COLOR YELLOW; URINE GLUCOSE-RANDOM* NEGATIVE (Negative); URINE KETONES NEGATIVE (Negative); URINE LEUKOCYTES-REFLEX 2+ (Negative); URINE NITRITE-REFLEX POSITIVE (Negative); URINE PROTEIN (DIPSTICK) NEGATIVE (Negative); URINE SPECIFIC GRAVITY 1.015 (1.005-1.035)
[2020-01-01 16:41] LABS: BACTERIA-REFLEX >30 Many /HPF (None Seen); CASTS None Seen /LPF (None Seen); CRYSTALS None Seen /LPF (None Seen); SQUAMOUS 0-3 Few /LPF (0-3)
[2020-01-01 16:43] LABS: URINE RBC None Seen /HPF (0-2)
[2020-01-01 17:22] LABS: OBSERVED RETIC COUNT 1.73 % (0.6-2.6); PLATELET COUNT 371 thou/uL (150-400)
[2020-01-01 17:34] LABS: CALCIUM 8.6 mg/dL (8.5-10.1); CREATININE 0.9 mg/dL (0.6-1.0); POTASSIUM 3.2 mmol/L (3.5-5.1)
[2020-01-01] MEDS ORDERED: OXYCODONE HCL10 MG PO (17:34)
[2020-01-01] MEDS ORDERED: HYDROCODON-ACE1 EAC5 PO (17:34)
[2020-01-01] MEDS ORDERED: KEFLEX500 M1 PO ×2 (17:34→17:47)
[2020-01-01 17:40] LABS: HEMATOCRIT 33.3 % (37.0-47.0); MCH 26.6 pg (26.0-34.0); MCHC 33.1 g/dL (28.0-37.0); MCV 80.3 fL (80.0-100.0); RBC 4.15 mil/uL (4.20-5.00); RDW 18.2 % (10.5-14.5)
[2020-01-01 17:59] LABS: ABSOLUTE NEUTROPHILS 5.2 thou/uL (1.4-8.2); ATYPICAL LYMPHS 1 %
[2020-01-01 18:00] LABS: ANISOCYTOSIS 1+; POLYCHROMASIA SLIGHT; TARGET CELLS 3+
[2020-01-01 18:01] LABS: LARGE PLATELETS RARE
[2020-01-01 18:54] VITALS: BP 119/72
== END 2020-01-01 18:56 | disposition home or self-care (01) ==
LOC: ER 16:13
PROVIDERS: Student in an Organized Health Care Education/Training Program
DX: N30.00 Acute cystitis without hematuria (principal); D57.00 Hb-SS disease with crisis, unspecified; Z90.49 Acquired absence of other specified parts of digestive tract; Z86.2 Personal history of diseases of the blood and blood-forming organs and certain disorders involving the immune mechanism; Z87.891 Personal history of nicotine dependence; Z79.899 Other long term (current) drug therapy; Z91.018 Allergy to other foods; Z88.2 Allergy status to sulfonamides; Z91.041 Radiographic dye allergy status

== ENCOUNTER 2020-02-01 16:03 | Emergency (ER) | payer BC, OTHER ==
[~2020-02-01] VITALS: Ht 157.5 cm; Wt 68.0 kg
[~2020-02-01 16:03] MED LIST changes: +HYDROCODON-ACE1 EAC5 PO; +OXYCODONE HCL10 MG PO
[2020-02-01] MEDS ORDERED: DULOXETINE HCL30 MG PO (17:38)
[2020-02-01 18:51] LABS: URINE BILIRUBIN NEGATIVE (Negative); URINE BLOOD NEGATIVE (Negative); URINE CLARITY CLEAR; URINE COLOR YELLOW; URINE GLUCOSE-RANDOM* NEGATIVE (Negative); URINE KETONES NEGATIVE (Negative); URINE PROTEIN (DIPSTICK) NEGATIVE (Negative); URINE UROBILINOGEN >= 8.0 E.U./dl (0.2-1.0)
[2020-02-01 18:52] LABS: URINE LEUKOCYTES-REFLEX 2+ (Negative); URINE NITRITE-REFLEX POSITIVE (Negative)
[2020-02-01 18:52] LABS: HEMOGLOBIN 11.1 gm/dL (12.0-15.0); MCHC 33.5 g/dL (28.0-37.0)
[2020-02-01 18:54] LABS: HEMATOCRIT 33.1 % (37.0-47.0); MCH 26.3 pg (26.0-34.0); MCV 78.4 fL (80.0-100.0); PLATELET COUNT 426 thou/uL (150-400); RBC 4.22 mil/uL (4.20-5.00); RDW 18.4 % (10.5-14.5); WBC 12.6 thou/uL (4.0-11.0)
[2020-02-01 18:59] LABS: BACTERIA-REFLEX >30 Many /HPF (None Seen); URINE RBC None Seen /HPF (0-2)
[2020-02-01 19:00] LABS: CASTS None Seen /LPF (None Seen); CRYSTALS None Seen /LPF (None Seen); SQUAMOUS 0-3 Few /LPF (0-3); URINE WBC-REFLEX 6-15 Few /HPF (0-5)
[2020-02-01 19:00] LABS: ANION GAP 8 mmol/L (7-16); BUN 6 mg/dL (7-18); CALCIUM 8.5 mg/dL (8.5-10.1); CHLORIDE 104 mmol/L (98-107); CO2 25 mmol/L (21-32); CREATININE 0.9 mg/dL (0.6-1.0); GLUCOSE 80 mg/dL (74-106); POTASSIUM 3.3 mmol/L (3.5-5.1); SODIUM 137 mmol/L (136-145)
[2020-02-01 19:10] LABS: ALBUMIN 3.2 g/dL (3.4-5.0); LIPASE 35 U/L (73-393); SGOT 15 U/L (15-37); SGPT 13 U/L (30-65); TOTAL BILIRUBIN 0.9 mg/dL (0.2-1.0); TOTAL PROTEIN 7.3 g/dL (6.4-8.2); TROPONIN-I <0.06 ng/mL (<0.06)
[2020-02-01 19:18] LABS: ABSOLUTE NEUTROPHILS 7.3 thou/uL (1.4-8.2); TARGET CELLS 1+
[2020-02-01 19:19] LABS: ANISOCYTOSIS 1+; HYPOCHROMASIA 1+; SCHISTOCYTES 1+
[2020-02-01] MEDS ORDERED: BACTRIM DS TAB1 EACH PO (19:42)
[2020-02-01] MEDS ORDERED: ONDANSETRON ODT8 MG PO (20:37)
[2020-02-01 21:04] VITALS: BP 103/53
--- NOTE | 2020-02-04 08:36 | EKG ---
[facility] [place] [address] ELECTROCARDIOGRAM REPORT Name: ROMARIO BLEDSOE Room #: DEP [facility]#: [id number] Admission: 02/01/20 Attend Phys: Discharge: 02/01/20 Date of : 78 Report #: [id number] THIS REPORT FOR: cc: Lottie Dixon Beth RNP Lundgren, Craig H. MD [facility] ~ THIS REPORT FOR: //name// [facility] ED Test Date: 2020-02-01 Test Time: 19:00:00 Pat Name: ROMARIO BLEDSOE Department: Room: Gender: F Milk Driver: [facility] : 1980 Requested By: Christophe Bates Order Number: [id number] MD: Lasha Lara Measurements Intervals [place] Rate: 68 P: 47 MA: 149 QRS: 20 QRSD: 92 T: 2 QT: 387 QTc: 412 Interpretive Statements Sinus rhythm Nonspecific T abnormalities Compared to ECG 06/06/2019 09:42:36 Sinus tachycardia no longer present Electronically Signed On 02-04-2020 8:30:29 CDT by Lasha Lara [email or web address] <ELECTRONICALLY SIGNED> By: Lasha Lara MD, [facility] 02/04/20829 99 99 Lasha Lara MD, [facility] /EPI
== END 2020-02-01 21:25 | disposition home or self-care (01) ==
LOC: ER 16:03
PROVIDERS: Emergency Medicine
DX: S93.491A Sprain of other ligament of right ankle, initial encounter (principal); Z20.828 Contact with and (suspected) exposure to other viral communicable diseases; D57.00 Hb-SS disease with crisis, unspecified; N39.0 Urinary tract infection, site not specified; Z87.891 Personal history of nicotine dependence; Z88.5 Allergy status to narcotic agent; Z91.041 Radiographic dye allergy status; Z79.899 Other long term (current) drug therapy; Z90.49 Acquired absence of other specified parts of digestive tract; Z87.01 Personal history of pneumonia (recurrent); Z86.718 Personal history of other venous thrombosis and embolism; X50.1XXA Overexertion from prolonged static or awkward postures, initial encounter; Y93.89 Activity, other specified; Y92.89 Other specified places as the place of occurrence of the external cause; Y99.9 Unspecified external cause status

== ENCOUNTER 2020-02-21 17:11 | Emergency (ER) | payer BC, OTHER ==
[~2020-02-21] VITALS: Ht 157.5 cm; Wt 68.0 kg
[~2020-02-21 17:11] MED LIST changes: +DULOXETINE HCL30 MG PO
[2020-02-21 21:49] VITALS: BP 108/56
== END 2020-02-21 21:50 | disposition home or self-care (01) ==
LOC: ER 17:11
DX: D57.1 Sickle-cell disease without crisis (principal); R25.2 Cramp and spasm; M79.604 Pain in right leg; M79.605 Pain in left leg; M79.603 Pain in arm, unspecified; Z90.49 Acquired absence of other specified parts of digestive tract; Z86.711 Personal history of pulmonary embolism; Z86.718 Personal history of other venous thrombosis and embolism; Z79.2 Long term (current) use of antibiotics; Z79.899 Other long term (current) drug therapy; Z88.5 Allergy status to narcotic agent; Z91.041 Radiographic dye allergy status; Z91.018 Allergy to other foods; Z87.891 Personal history of nicotine dependence

== ENCOUNTER 2020-02-25 23:31 | Emergency (ER) | payer BC, OTHER ==
[~2020-02-25] VITALS: Ht 157.5 cm; Wt 68.0 kg
[2020-02-25] MEDS ORDERED: DILAUDID1 MG/1 M1 PO (23:37)
[2020-02-26 01:20] LABS: HEMOGLOBIN 10.6 gm/dL (12.0-15.0)
[2020-02-26 01:22] LABS: ANION GAP 17 mmol/L (7-16); BUN 5 mg/dL (7-18); CALCIUM 8.6 mg/dL (8.5-10.1); CHLORIDE 105 mmol/L (98-107); CO2 19 mmol/L (21-32); CREATININE 1.1 mg/dL (0.6-1.0); GLUCOSE 148 mg/dL (74-106); HEMATOCRIT 32.1 % (37.0-47.0); MCH 25.8 pg (26.0-34.0); MCHC 33.1 g/dL (28.0-37.0); MCV 77.8 fL (80.0-100.0); PLATELET COUNT 496 thou/uL (150-400); POTASSIUM 3.1 mmol/L (3.5-5.1); RBC 4.12 mil/uL (4.20-5.00); RDW 19.5 % (10.5-14.5); SODIUM 141 mmol/L (136-145); WBC 11.7 thou/uL (4.0-11.0)
[2020-02-26 01:28] LABS: ALBUMIN 3.6 g/dL (3.4-5.0); DIRECT BILIRUBIN < 0.1 mg/dL (<0.1-0.2); LIPASE 84 U/L (73-393); SGOT 18 U/L (15-37); SGPT 16 U/L (30-65); TOTAL BILIRUBIN 0.5 mg/dL (0.2-1.0); TOTAL PROTEIN 7.4 g/dL (6.4-8.2)
[2020-02-26 02:44] LABS: ANISOCYTOSIS 2+; NUCLEATED RBCS 1 /100WBC; PLATELET ESTIMATE INCREASED; POIKILOCYTOSIS 2+
[2020-02-26 02:45] LABS: POLYCHROMASIA 1+; SCHISTOCYTES 1+; TARGET CELLS 3+
[2020-02-26] MEDS ORDERED: FLAGYL500 M1 PO (05:29)
[2020-02-26 05:38] VITALS: BP 131/64
== END 2020-02-26 05:51 | disposition home or self-care (01) ==
LOC: ER 23:31
PROVIDERS: Emergency Medicine
DX: K52.9 Noninfective gastroenteritis and colitis, unspecified (principal); D57.1 Sickle-cell disease without crisis; R35.0 Frequency of micturition; R11.2 Nausea with vomiting, unspecified; Z90.49 Acquired absence of other specified parts of digestive tract; Z86.718 Personal history of other venous thrombosis and embolism; Z86.711 Personal history of pulmonary embolism; Z79.899 Other long term (current) drug therapy; Z88.5 Allergy status to narcotic agent; Z91.018 Allergy to other foods; Z91.041 Radiographic dye allergy status; Z87.891 Personal history of nicotine dependence

== ENCOUNTER 2020-03-03 18:59 | Inpatient (IN) | payer BC, OTHER ==
[~2020-03-03] VITALS: Ht 157.5 cm; Wt 68.6 kg
[~2020-03-03 18:59] MED LIST changes: +DILAUDID1 MG/1 M1 PO; +FLAGYL500 M1 PO
[2020-03-03 19:16] VITALS: BP 124/76
[2020-03-03 19:52] LABS: HEMATOCRIT 33.4 % (37.0-47.0); HEMOGLOBIN 11.1 gm/dL (12.0-15.0); MCH 25.8 pg (26.0-34.0); MCHC 33.4 g/dL (28.0-37.0); MCV 77.2 fL (80.0-100.0); PLATELET COUNT 464 thou/uL (150-400); RBC 4.32 mil/uL (4.20-5.00); RDW 19.6 % (10.5-14.5); WBC 16.9 thou/uL (4.0-11.0)
[2020-03-03] MEDS ORDERED: DILAUDID2 MG PO (19:55)
[2020-03-03 19:58] LABS: CALCIUM 9.3 mg/dL (8.5-10.1); CREATININE 0.9 mg/dL (0.6-1.0)
[2020-03-03 20:00] LABS: POTASSIUM 2.9 mmol/L (3.5-5.1)
[2020-03-03 20:04] LABS: ALBUMIN 3.8 g/dL (3.4-5.0); TOTAL BILIRUBIN 0.8 mg/dL (0.2-1.0); TOTAL PROTEIN 7.7 g/dL (6.4-8.2)
[2020-03-03 20:15] LABS: ABSOLUTE NEUTROPHILS 14.2 thou/uL (1.4-8.2)
[2020-03-03 20:16] LABS: ANISOCYTOSIS 2+; TARGET CELLS 2+
[2020-03-03 20:18] LABS: HYPOCHROMASIA 1+; LARGE PLATELETS FEW; MICROCYTES 1+
[2020-03-03 21:00] VITALS: BP 96/60
[2020-03-03 21:52] VITALS: BP 97/55
[2020-03-03 22:14] LABS: URINE BILIRUBIN NEGATIVE (Negative); URINE BLOOD NEGATIVE (Negative); URINE CLARITY CLEAR; URINE COLOR YELLOW; URINE GLUCOSE-RANDOM* NEGATIVE (Negative); URINE KETONES NEGATIVE (Negative); URINE LEUKOCYTES-REFLEX NEGATIVE (Negative); URINE NITRITE-REFLEX NEGATIVE (Negative); URINE PROTEIN (DIPSTICK) NEGATIVE (Negative); URINE UROBILINOGEN 0.2 E.U./dl (0.2-1.0)
[2020-03-03 22:30] VITALS: BP 107/60
--- NOTE | 2020-03-04 02:21 | NUR ---
ASSUMED CARE OF PT FROM ED AT 2220HRS. PT AOX4 ANDUP AD CHAYITO. PT WAS ORIENTED TO THE UNIT AND HER ROOM. PT WAS ABLE TO ANSWER ALL ADMISSION RELATED QUESTIONS AND SIGN CONSENTS. ASSESSMENT CHARTED. PT REPORTED PAIN AND WAS TREATED WITH PRN PAIN MEDS. PT DENIES ANY NAUSEA OR SOA. VSS AND NO S/S OF ACUTE DISTRESS. WILL CONTINUE TO MONITOR.
[2020-03-04 05:06] VITALS: BP 90/53
[2020-03-04 05:56] LABS: CREATININE 0.8 mg/dL (0.6-1.0); MAGNESIUM 1.8 mg/dL (1.8-2.4)
[2020-03-04 06:00] LABS: POTASSIUM 4.1 mmol/L (3.5-5.1)
[2020-03-04 06:08] LABS: HEMATOCRIT 29.5 % (37.0-47.0); HEMOGLOBIN 9.6 gm/dL (12.0-15.0); MCH 25.8 pg (26.0-34.0); MCHC 32.6 g/dL (28.0-37.0); MCV 78.9 fL (80.0-100.0); RBC 3.74 mil/uL (4.20-5.00); RDW 19.3 % (10.5-14.5); WBC 13.5 thou/uL (4.0-11.0)
[2020-03-04 09:13] VITALS: BP 98/38
--- NOTE | 2020-03-04 09:48 | NUR ---
ASSESSMENT: CM REVIEWED CHART AND MET WITH PATIENT. PT IS ALERT AND ORIENTED X4. PT IS HERE FOR NAUSEA AND VOMITTING. PT REPORTS THAT SHE LIVES AT HOME WITH 2 ROOMATES. PT REPORTS SHE IS FULLY INDEPENDENT WITH ADLS WELL AMBULATION. PT REPORTS THAT SHE HAS NOT HAD HH IN THE PAST. CM DISCUSSED ROLE. PT REPORTS HAVING A PCP. PT REPORTS SHE DOES NOT ANTICIPATE HAVING ANY NEEDS FROM CM. CM WILL CONTINUE TO FOLLOW TO ASSIST NEEDED.
--- NOTE | 2020-03-04 11:44 | NUR ---
Patient had a visit from her daughter this morning. She enjoyed the time spent with family and is looking forward to discharge and spending time with family. Patient walked around in her room with little pain and discomfort.
--- NOTE | 2020-03-04 11:52 | NUR ---
I have reviewed the student's documentation.
[2020-03-04 16:20] VITALS: BP 101/53
--- NOTE | 2020-03-04 18:05 | NUR ---
PT ASSESSED AT START OF SHIFT. PT STATES NO MORE STOOLS SINCE THE ER LAST NOC. NO NAUSEA BUT OCCASIONAL BURNING IN STOMACH. IV PEPCID GIVEN. C/O LEGS HURTING AND TAKING IV DILAUDID FOR PAIN. GI CONSULT AND PLANS FOR EGD/COLON ON TUESDAY. COVID TEST SENT TO LAB. DIET/NUTRITION EDUCATION GIVEN FOR FOOD CHOICES PT DRINKS MULTIPLE APPLE JUICES, REICH'S AND PROCESSED FOODS. ORDERS FOR STOOL FOR CDIFF AND ISOLATION SO PT TRANSFERRING TO RM 449 AT THIS TIME.
[2020-03-04 18:12] VITALS: BP 106/60
--- NOTE | 2020-03-04 18:48 | NUR ---
Patient arrived after 6pm, A/O, pleasant. complains of pain, pain medication given. VSS.
[2020-03-04 20:30] VITALS: BP 108/68
--- NOTE | 2020-03-05 01:45 | NUR ---
Assumed pt care at 1900. A/OX4,VSS.Up ad jayesh in room w/o problems. C/o pain to BLE medicated per with some relief reported. C/o itching allover,Benadryl ordered and effective. Reports some nause abut denied need for medication. Pt hasn't had diarrhea after ER arrival;stool sample pending collection for c-diff. Pt on special contact precautions. Right chest port patent infusing IVF w/o problems. Resting quietly at this time,will continue to monitor pt.
[2020-03-05 04:55] VITALS: BP 114/54
[2020-03-05 06:51] LABS: HEMATOCRIT 29.7 % (37.0-47.0); HEMOGLOBIN 9.9 gm/dL (12.0-15.0); MCH 26.4 pg (26.0-34.0); MCHC 33.2 g/dL (28.0-37.0); MCV 79.4 fL (80.0-100.0); RBC 3.74 mil/uL (4.20-5.00); RDW 19.6 % (10.5-14.5)
[2020-03-05 06:59] LABS: APTT 31.4 Seconds (24.5-32.8); PROTIME 10.7 Seconds (9.3-11.4)
[2020-03-05 07:06] LABS: ALBUMIN 2.9 g/dL (3.4-5.0); CALCIUM 8.2 mg/dL (8.5-10.1); CREATININE 0.8 mg/dL (0.6-1.0); MAGNESIUM 2.2 mg/dL (1.8-2.4); POTASSIUM 4.3 mmol/L (3.5-5.1); TOTAL BILIRUBIN 0.3 mg/dL (0.2-1.0); TOTAL PROTEIN 6.2 g/dL (6.4-8.2)
[2020-03-05 08:03] VITALS: BP 105/53
--- NOTE | 2020-03-05 13:29 | NUR ---
CM REVIEWED CHART AND SPOKE WITH CARE TEAM. PT IS TO HAVE AN EGD AND COLONOSCOPY TOMORROW. IT IS ANTICAPTED THAT PT WILL LIKELY RETURN HOME WITH NO NEEDS ONCE MEDICALLY STABLE. CM TO FOLLOW INDICATED WITH DC PLANNING.
[2020-03-05 16:00] VITALS: BP 114/70
[2020-03-05 19:25] VITALS: BP 130/53
--- NOTE | 2020-03-05 19:35 | NUR ---
ASSUMED PT CARE THIS AM. PT VITAL SIGNS STABLE, A&OX4. PT IS PLEASANT AND COOPERATIVE WITH NURSING STAFF. PT REPORTS PAIN IN THE LOWER EXTREMETIES, WHICH IS PARTIALLY RESOLVED WITH PAIN MEDICATION. PT REPORTED NAUSEA UPON EATING, WHICH RESOLVED WITH MEDICATION WELL. PT AMBULATORY TO THE BATHROOM, AND CALLS WHEN NEEDING SOMETHING. PT ON A CLEAR LIQUID DIET. PT REPORTED UNCONTROLABLE PAIN AND NAUSEA UPON TAKING A SIP OF CHICKEN BROTH, RESOLVED WITH MEDICATION HOWEVER. PT AGREEABLE TO DRINK CLEAR LIQUIDS ONLY TO RESOLVE PAIN AND NAUSEA. PT DRINKING GOLYTLY SOLUTION AND USING BEDSIDE COMMODE. NIGHT NURSE ENDORSED.
[2020-03-06 09:13] VITALS: BP 101/64
--- NOTE | 2020-03-06 12:17 | NUR ---
PT HAD EGD AND COLONOSCOPY DONE THIS AM. CARE TEAM INDICATED THAT PT VOMITED. THEY ARE MONITORING AND INDICATED THAT PT MAY BE MEDICALLY STABLE TO DC HOME EITHER THIS AFTERNOON OR TOMORROW. IT IS ANTICIPATED THAT PT WILL LIKELY BE ABLE TO DISCHARGE HOME WITH NO NEEDS TO SELF CARE. CM FOLLOWING.
[2020-03-06 15:03] VITALS: BP 105/66
--- NOTE | 2020-03-06 17:51 | NUR ---
Received awake on bed. Due medications given as prescribed, able to swallow meds w/o difficulty. On room air. Vital signs stable. on MS, not on telemetry; no complain of chest pain, crushing sensation and heaviness. On nothing per orem post midnight- pt for EGD and colonoscopy this AM. Continent of bowel and bladder, able to go to the toilet independently; with occasional incontinence due to bowel prep for colonoscopy. With R chest port- accessed; NS at 125cc/hr, infusing well; dressing C/D/I. Pt brought down via wheelchair for EGD/Colonoscopy. Maintained on isolation due to Cdiff, specimen sent, a/w results. Complained of pain, due PRN pain meds given as prescribed; pt requesting for the dosage of her pain meds to be increased- Dr Segura informed, will review pt's meds and round on her first before any modification. Back to room from procedure, tolerated well; transferred back to room safely. As per GI nurse, to instruct pt to hold of Xarelto for 2 more days, pt informed and acknowledge understanding. Pt seen and examined by Dr Segura, possible discharge today if no further episodes of vomiting- pt informed. Pt requesting to have Benadryl added to her meds- Dr Segura informed. Pt able to walk in the hallway today with standby assist. Complained of bloatedness, Dr Segura informed- to continue walking around the [place] or in the room; no meds prescribed as of now. To continue monitoring patient.
--- NOTE | 2020-03-07 08:22 | NUR ---
progress pt a/o x4 voiding per urinal. lngs clear reports poor appetite, voiding large amounts of urina and has adequate po intake. ivf's continue at 125cc/hr zozyn administered as ordered and 1 unit of prbc's given as ordered pt tolerated well no s/s of reaction noted continue to monitor.
--- NOTE | 2020-03-07 09:59 | NUR ---
DR. KERR HERE, DISCHARGING PATIENT.
[2020-03-07] MEDS ORDERED: FLAGYL500 M1 PO (11:02)
[2020-03-07] MEDS ORDERED: CEFUROXIME500 MG PO (11:02)
[2020-03-07 11:15] VITALS: BP 105/66
--- NOTE | 2020-03-07 11:48 | NUR ---
CARE TEAM INDICATED THAT PT IS MEDICALLY STABLE TO DISHCARGE HOME THIS DAY. PT IS TO DC HOME TO SELF CARE. NO OTHER CM INTERVENTION INDICATED. CASE CLOSED.
--- NOTE | 2020-03-07 16:06 | PATH ---
[facility] [address] [place] [address] PATHOLOGY RPT PROCEDURE Name: EMILIA BLEDSOE Room #: 449-I DIS IN M.R.#: [id number] Admission: 03/03/20 Date of : 78 Discharge: 03/07/20 Report #: [id number] Path Case #: [id number] [facility] Accession Number: [id number] . 01 Material submitted: . PART A: duodenum - BX OF DUODENUM PART B: stomach - BX OF ANTRUM PART C: colon - RANDOM BX OF COLON PART D: splenic flexure - POLYP AT SPLENIC FLEXURE . 01 Clinical history: . A. R/O CELIAC B. R/O H PYLORI C. R/O MICROSCOPIC COLITIS . 02 Diagnosis: A. Small bowel mucosa, duodenum to rule out celiac, endoscopic biopsy: - No significant diagnostic abnormality is present. - Negative for villous blunting or increase in intraepithelial lymphocytes. . B. Gastric mucosa, antrum to rule out H. pylori, endoscopic biopsy: - Mild chronic active gastritis. - Negative for intestinal metaplasia or atrophy. - Negative for Helicobacter pylori (properly controlled immunohistochemical stain performed). . C. Large intestinal mucosa, colon to rule out microscopic colitis, endoscopic biopsy: - Mild active cryptitis with apoptosis, see comment. - Negative for dysplasia or malignancy. . D. Polyp, at splenic flexure, endoscopic biopsy: - Tubular adenoma. - Negative for high-grade dysplasia. . (IUV:steward/stewardess wine; 03/07/2020) R 03/07/2020 1313 Local . 02 Comment: C. Sections of the colonic mucosa designated "colon to rule out microscopic colitis" show focal cryptitis, and a moderately cellular lamina propria composed predominantly of lymphocytes and plasma cells and occasional eosinophils. Surface ulceration is not identified. There are no crypt abscesses, granulomas or viral inclusions. The process affects all the fragments with a similar intensity. Given the description, the differential diagnosis includes focal self-limited episode of colitis, [address] [address] PATHOLOGY RPT PROCEDURE Name: EMILIA BLEDSOE Room #: 449-I DIS IN .R.#: [id number] Admission: 03/03/20 Date of : 78 Discharge: 03/07/20 Report #: [id number] Path Case #: [id number] infectious-type of colitis, medication/drug induced colitis, early inflammatory bowel disease, as well as active diverticulitis. Please correlate clinically. (IUV:steward/stewardess wine; 03/07/2020) . 02 Electronically signed: . Shelly Rodriguez MD, Pathologist NPI- [id number] . 01 Gross description: . A. The specimen is received in formalin, labeled "Emilia Bledsoe, biopsy duodenum, R/O celiac". Received are two segments of pale goldsmith soft tissue ranging in size from 0.3 to 0.4 cm in maximum dimensions. The specimen is submitted entirely in cassette A1. . B. The specimen is received in formalin, labeled "Emiliabonnie Bledsoe, biopsy of antrum, R/O H. pylori". Received is a segment of pale goldsmith soft tissue measuring 0.5 cm in maximum dimensions. The specimen is submitted entirely in cassette B1. . C. The specimen is received in formalin, labeled "Emiliabonnie Bledsoe, random biopsy of colon R/O microscopic colitis". Received are four segments of pale goldsmith soft tissue ranging in size from 0.2 to 0.3 cm in maximum dimensions. The specimen is submitted entirely in cassette C1. . D. The specimen is received in formalin, labeled "Emilia Bledsoe, polyp at splenic flexure". Received is a segment of pale goldsmith soft tissue measuring 0.4 cm in maximum dimensions. The specimen is submitted entirely in cassette D1. ([facility]; 03/06/2020) QA/QA 03/06/2020 1714 Local . 02 Pathologist provided ICD-10: K29.50, K63.9, D12.3 . 02 CPT . 762322, 157809, 443617, 140171, A29457 Specimen Comment: A courtesy copy of this report has been sent to [phone], [phone] Specimen Comment: [phone], [phone] Specimen Comment: Report sent to ,DR REEVES / DR GONZALEZ Performed at: [address], [place], [place] [id number] MD Enrike Garcia MD Phone: [phone] Performed at: [address] [facility] [address] [place], [place] [id number] [facility] [address] [place] [address] PATHOLOGY RPT PROCEDURE Name: EMILIA BLEDSOE Room #: 449-I DIS IN M.R.#: [id number] Admission: 03/03/20 Date of : 78 Discharge: 03/07/20 Report #: [id number] [facility] Case #: [id number] MD Shelly Rodriguez [place] Phone: [phone]
== END 2020-03-07 12:50 | disposition home or self-care (01) | DRG 392 ==
LOC: ER 18:59 → EROBS 20:43 → 4S 20:43 → 4W 03-04 18:23
PROVIDERS: Nurse Practitioner; Nurse Practitioner Family; ADMIT Internal Medicine; ATTEND Internal Medicine
PROC: 0DB68ZX Excision of Stomach, Via Natural or Artificial Opening Endoscopic, Diagnostic (ICD-10-PCS; principal; 2020-03-06)
PROC: 0DBL8ZZ Excision of Transverse Colon, Via Natural or Artificial Opening Endoscopic (ICD-10-PCS; principal; 2020-03-06)
PROC: 0DBE8ZX Excision of Large Intestine, Via Natural or Artificial Opening Endoscopic, Diagnostic (ICD-10-PCS; principal; 2020-03-06)
PROC: 0DB98ZX Excision of Duodenum, Via Natural or Artificial Opening Endoscopic, Diagnostic (ICD-10-PCS; principal; 2020-03-06)
DX: K52.9 Noninfective gastroenteritis and colitis, unspecified (principal); K57.30 Diverticulosis of large intestine without perforation or abscess without bleeding; E87.6 Hypokalemia; D72.829 Elevated white blood cell count, unspecified; G62.9 Polyneuropathy, unspecified; E86.0 Dehydration; G89.29 Other chronic pain; D57.1 Sickle-cell disease without crisis; I95.9 Hypotension, unspecified; D50.9 Iron deficiency anemia, unspecified; K44.9 Diaphragmatic hernia without obstruction or gangrene; K63.5 Polyp of colon; K64.8 Other hemorrhoids; Z90.81 Acquired absence of spleen; Z90.49 Acquired absence of other specified parts of digestive tract; Z86.718 Personal history of other venous thrombosis and embolism; Z86.711 Personal history of pulmonary embolism; Z88.6 Allergy status to analgesic agent; Z91.041 Radiographic dye allergy status; Z87.891 Personal history of nicotine dependence
CPT/HCPCS: 10040; 10100; 10102; 62110; 62900

== ENCOUNTER 2020-03-26 04:18 | Emergency (ER) | payer BC, OTHER ==
[~2020-03-26] VITALS: Ht 157.5 cm; Wt 59.0 kg
[~2020-03-26 04:18] MED LIST changes: +DILAUDID2 MG PO
[2020-03-26 04:28] VITALS: BP 126/63
[2020-03-26] MEDS ORDERED: OXYCODONE HCL10 MG PO (04:40)
[2020-03-26 04:58] LABS: URINE BILIRUBIN NEGATIVE (Negative); URINE BLOOD NEGATIVE (Negative); URINE CLARITY CLEAR; URINE COLOR YELLOW; URINE GLUCOSE-RANDOM* NEGATIVE (Negative); URINE KETONES NEGATIVE (Negative); URINE LEUKOCYTES-REFLEX TRACE (Negative); URINE NITRITE-REFLEX NEGATIVE (Negative); URINE PROTEIN (DIPSTICK) TRACE (Negative); URINE SPECIFIC GRAVITY 1.015 (1.005-1.035); URINE UROBILINOGEN 0.2 E.U./dl (0.2-1.0)
== END 2020-03-26 05:54 | disposition home or self-care (01) ==
LOC: ER 04:18
PROVIDERS: Emergency Medicine
DX: R10.9 Unspecified abdominal pain (principal); N18.9 Chronic kidney disease, unspecified; Z86.2 Personal history of diseases of the blood and blood-forming organs and certain disorders involving the immune mechanism; Z87.891 Personal history of nicotine dependence; Z79.899 Other long term (current) drug therapy; Z88.5 Allergy status to narcotic agent; Z91.018 Allergy to other foods; Z91.041 Radiographic dye allergy status

== ENCOUNTER 2020-03-26 21:28 | Inpatient (IN) | payer BC, OTHER ==
[~2020-03-26] VITALS: Ht 157.5 cm; Wt 68.0 kg
[2020-03-26 21:35] VITALS: BP 134/71
[2020-03-26 23:16] LABS: ABSOLUTE NEUTROPHILS 12.1 thou/uL (1.4-8.2); BASOPHILS 0.4 % (0.0-2.0); HEMATOCRIT 35.6 % (37.0-47.0); HEMOGLOBIN 11.4 gm/dL (12.0-15.0); LYMPHOCYTES 4.6 % (24.0-44.0); MCH 25.2 pg (26.0-34.0); MCHC 32.1 g/dL (28.0-37.0); MCV 78.7 fL (80.0-100.0); MONOCYTES 6.3 % (1.0-8.0); PLATELET COUNT 430 thou/uL (150-400); POLYS 87.7 % (36.0-66.0); RBC 4.53 mil/uL (4.20-5.00); RDW 18.5 % (10.5-14.5); WBC 13.8 thou/uL (4.0-11.0)
[2020-03-26 23:28] LABS: ALBUMIN 4.3 g/dL (3.4-5.0); CALCIUM 9.6 mg/dL (8.5-10.1); TOTAL BILIRUBIN 1.2 mg/dL (0.2-1.0)
[2020-03-26 23:31] LABS: APTT 28.9 Seconds (24.5-32.8); INR 1.2
[2020-03-26 23:44] LABS: POTASSIUM 2.9 mmol/L (3.5-5.1)
[2020-03-27 05:06] LABS: CALCIUM 8.3 mg/dL (8.5-10.1); MAGNESIUM 1.8 mg/dL (1.8-2.4)
[2020-03-27 06:09] VITALS: BP 111/54
[2020-03-27 06:19] LABS: MCH 25.9 pg (26.0-34.0); MCHC 33.4 g/dL (28.0-37.0); MCV 77.4 fL (80.0-100.0); RBC 3.88 mil/uL (4.20-5.00); RDW 18.1 % (10.5-14.5); WBC 11.7 thou/uL (4.0-11.0)
[2020-03-27 07:10] VITALS: BP 107/53
[2020-03-27 08:00] VITALS: BP 107/53
--- NOTE | 2020-03-27 08:26 | NUR ---
ASSESSMENT: CM REVIEWED CHART AND SPOKE WITH PATIENT. PT IS ALERT AND ORIENTED X4. PT WAS ADMITTED DUE TO N/V AND HEMATEMESIS. PT RPEORTS LIVING IN A HOUSE WITH 2 ROOMATES. PT REPORTS 4 STEPS WITH NO HANDRAILS TO ENTER AND ABOUT 14 STEPS WITH HANDRAILS TO THE BASEMENT WHERE THEY WASHER AND DRYER IS. PT REPORTS BEING FULLY INDEPENDENT WITH ADLS AND AMBULATION. CM DISCUSSED ROLE. PT DOES NOT ANTICIPATE HAVING ANY NEEDS FROM CM. GI IS CONSULTED TO SEE PATIENT. CM WILL CONTINUE TO FOLLOW TO ASSIST NEEDED.
--- NOTE | 2020-03-27 12:46 | NUR ---
PT CARE ASSUMED AT 0700. A&Ox4. PT IN BED RESTING IN BED. PAIN IS NOT TOLERATED WELL WITH PAIN MEDICATION ON BOARD. DR. [place] INFORMED AND IV PAIN MEDICATION ADDED. IV PAIN MEDICATION GIVEN AND PAIN PARTIALLY RESOLVED. PORT IN PLACE. PLACEMENT VERIFIED WITH CHESET XRAY. NPO. ADMISSION COMPLEETED. SCD'S IN PLACE. GI WAS CONSULTED. FLUIDS INFUSING. UP INDEPENDENTLY IN THE ROOM. DAUGHTER IN THE ROOM WITH PATIENT. CALL LIGHT IN REACH. WILL CONTINUE TO MONITOR.
[2020-03-27 14:53] LABS: URINE BILIRUBIN NEGATIVE (Negative); URINE BLOOD NEGATIVE (Negative); URINE CLARITY CLEAR; URINE COLOR YELLOW; URINE GLUCOSE-RANDOM* NEGATIVE (Negative); URINE KETONES NEGATIVE (Negative); URINE LEUKOCYTES-REFLEX NEGATIVE (Negative); URINE NITRITE-REFLEX NEGATIVE (Negative); URINE PROTEIN (DIPSTICK) NEGATIVE (Negative); URINE UROBILINOGEN 0.2 E.U./dl (0.2-1.0)
[2020-03-27 19:10] VITALS: BP 115/58
--- NOTE | 2020-03-28 02:25 | NUR ---
PT CARE ASSUMED WITH PT IN BED WATCHING TV AT 1900.PT IS A/O X4.PT IS UP AD CHAYITO.PT IS NPO.PT IS ON ROOM AIR.PT COMPLAINING OF ABD PAIN WITH PAIN MANAGEMENT WITH DILAUDID AND SHE ALSO HAD HYDROCODONE WITH SIP OF WATER AFTER NOTIFYING DIRECTOR OF GRANTS LESLY REQUESTED BY THE PT.PT REPORT NO VOMITING OF BLOOD OR STOOL WITH BLOOD.PT HAS A RT CHEST PORT.WILL CONTINUE TO MONITOR
[2020-03-28 04:42] VITALS: BP 109/70
[2020-03-28 05:28] LABS: HEMATOCRIT 28.9 % (37.0-47.0); HEMOGLOBIN 9.4 gm/dL (12.0-15.0); MCH 25.7 pg (26.0-34.0); MCHC 32.6 g/dL (28.0-37.0); MCV 78.7 fL (80.0-100.0); RBC 3.67 mil/uL (4.20-5.00); RDW 18.6 % (10.5-14.5)
[2020-03-28 05:38] LABS: CREATININE 0.9 mg/dL (0.6-1.0)
[2020-03-28 08:12] VITALS: BP 116/64
--- NOTE | 2020-03-28 13:03 | NUR ---
on-going assessment: CM REVIEWED CHART. PT IS CURRENTLY ON PPI GTT AND WILL LIKELY DISCONTINUE PPI GTT TOMORROW. PT IS FROM HOME AND INDEPENDENT AT HOME. PT SHOULD HAVE NO NEEDS FROM CASE MANAGEMENT PRIOR TO DISCHARGE. CM WILL CONTINUE TO FOLLOW TO ASSIST NEEDED.
--- NOTE | 2020-03-28 14:07 | NUR ---
PT ASSESSED AT START OF SHIFT. C/O 01/20 GENERAL ABD PAIN. DENIES NAUSEA. LAST BM YESTERDAY. STOOL ORDER FOR CDIFF. IV FLUIDS INFUSING.
[2020-03-28 16:28] VITALS: BP 113/67
--- NOTE | 2020-03-28 16:32 | NUR ---
ASSUMED CARE OF PT AT 1500. REVIEWED ASSESSMENT BY PRIOR NURSE, NOT CHANGED NOTED. PORT LINE FLUSHED. PT RESTING IN BED. CALLS APPROPRIATELY. FALL PRECAUTIONS IN PLACE AND NURSING WILL CONTINUE TO MONITOR.
--- NOTE | 2020-03-29 00:21 | NUR ---
THIS NURSE RECEIVED REPORT ON PATIENT AT SHIFT CHANGE AND MEDICATED FOR PAIN. PATIENT HAD ORDERS TO TRANSFER TO ROOM 459 ON 4W BEFORE THIS NURSE ARRIVED FOR TELEPHONE OPERATOR RECEPTIONIST. PATIENT WAS ALERT AND ORIENTED X4 AND UP ADLIB. COOPERATIVE WITH CARE AND PLEASANT. TRANSFERRED AT 2049 BY THIS NURSE AND SERVICE CENTER SUPERVISOR. REPORT GIVEN TO MARTINA JHA. PATIENT TOLERATED TRANSFER VIA WHEELCHAIR.
--- NOTE | 2020-03-29 07:45 | NUR ---
progress pt a/o x4 up ad jayesh gait steady takinghydromorphone and hydrocodone for pain from sickle cell. ivf's infusing as ordered pt tolerating clear liquids voiding qs awaiting stool sample continue poc.
[2020-03-29] MEDS ORDERED: CIPRO500 M1 PO (09:43)
[2020-03-29] MEDS ORDERED: METRONIDAZOLE500 M4 PO (09:43)
[2020-03-29] MEDS ORDERED: HYDROCODON-ACE1 EAC5 PO (09:44)
[2020-03-29 09:45] VITALS: BP 114/70
[2020-03-29] MEDS ORDERED: PROTONIX40 M2 PO (09:45)
[2020-03-29 10:13] VITALS: BP 113/67
--- NOTE | 2020-03-29 11:10 | NUR ---
PT CARE ASSUMED AT 0700. A&Ox4. PT COMPLAINING OF PAIN PAIN MEDICATION GIVEN. RESOSLVED. PT DISCHARGED THIS AM. PORT DEACCESSED. PT DC'D WITH DAUGHTER. NO FURTHER QUESTIONS WITH DISCAHRGE. CALL LIGHT IN REACH.
== END 2020-03-29 11:48 | disposition home or self-care (01) | DRG 379 ==
LOC: ER 21:28 → EROBS 03-27 01:08 → 4S 03-27 01:08 → 4W 03-28 21:09
PROVIDERS: Emergency Medicine; Hospitalist; Nurse Practitioner Family; ADMIT Hospitalist; ATTEND Hospitalist
DX: K92.2 Gastrointestinal hemorrhage, unspecified (principal); E87.6 Hypokalemia; D57.1 Sickle-cell disease without crisis; D50.9 Iron deficiency anemia, unspecified; G89.29 Other chronic pain; K52.9 Noninfective gastroenteritis and colitis, unspecified; Z90.81 Acquired absence of spleen; Z90.49 Acquired absence of other specified parts of digestive tract; Z86.718 Personal history of other venous thrombosis and embolism; Z86.711 Personal history of pulmonary embolism; Z88.8 Allergy status to other drugs, medicaments and biological substances; Z88.6 Allergy status to analgesic agent; Z91.041 Radiographic dye allergy status; Z87.891 Personal history of nicotine dependence
CPT/HCPCS: 10047; 10102

== ENCOUNTER 2020-03-30 11:36 | Inpatient (IN) | payer BC, OTHER ==
[~2020-03-30] VITALS: Ht 157.5 cm; Wt 67.1 kg
[~2020-03-30 11:36] MED LIST changes: +CIPRO500 M1 PO; +METRONIDAZOLE500 M4 PO; +PROTONIX40 M2 PO
[2020-03-30 11:37] VITALS: BP 148/62
[2020-03-30 13:15] LABS: HEMATOCRIT 31.4 % (37.0-47.0); HEMOGLOBIN 10.7 gm/dL (12.0-15.0); MCH 26.5 pg (26.0-34.0); MCHC 34.1 g/dL (28.0-37.0); MCV 77.7 fL (80.0-100.0); PLATELET COUNT 415 thou/uL (150-400); RBC 4.04 mil/uL (4.20-5.00); RDW 18.8 % (10.5-14.5); WBC 17.2 thou/uL (4.0-11.0)
[2020-03-30 13:27] LABS: ALBUMIN 3.8 g/dL (3.4-5.0); CALCIUM 9.3 mg/dL (8.5-10.1); CREATININE 0.9 mg/dL (0.6-1.0); DIRECT BILIRUBIN 0.2 mg/dL (<0.1-0.2); POTASSIUM 2.7 mmol/L (3.5-5.1); TOTAL BILIRUBIN 0.8 mg/dL (0.2-1.0); TOTAL PROTEIN 7.1 g/dL (6.4-8.2)
[2020-03-30 13:41] LABS: ABSOLUTE NEUTROPHILS 16.7 thou/uL (1.4-8.2); ANISOCYTOSIS 2+; MICROCYTES 1+; PLATELET ESTIMATE NORMAL; TARGET CELLS 2+
[2020-03-30 14:56] LABS: URINE BILIRUBIN NEGATIVE (Negative); URINE BLOOD NEGATIVE (Negative); URINE CLARITY CLEAR; URINE COLOR YELLOW; URINE GLUCOSE-RANDOM* NEGATIVE (Negative); URINE KETONES NEGATIVE (Negative); URINE LEUKOCYTES-REFLEX NEGATIVE (Negative); URINE NITRITE-REFLEX NEGATIVE (Negative); URINE PROTEIN (DIPSTICK) NEGATIVE (Negative); URINE SPECIFIC GRAVITY 1.015 (1.005-1.035); URINE UROBILINOGEN 0.2 E.U./dl (0.2-1.0)
[2020-03-30 15:31] VITALS: BP 148/62
[2020-03-30 15:40] LABS: OBSERVED RETIC COUNT 2.11 % (0.6-2.6)
[2020-03-30 15:42] VITALS: BP 98/42
--- NOTE | 2020-03-30 18:48 | NUR ---
ASSUMED PT CARE UPON TRANSFER FROM . PT VITAL SIGNS STABLE, A&OX4. PT AMBULATORY, REPORTED WEAKNESS THIS AM BUT NO CURRENT WEAKNESS. PT USES TOILET TO VOID. PT REPORTED NAUSEA AND PAIN IN HER ABDOMEN. MEDICATION GIVEN PER EMAR AND PT RESPONDED WELL TO IT. PT COOPERATIVE, INSTRUCTED ON FALL PRECAUTIONS AND IMPORTANCE OF USING CALL LIGHT. FALL PRECAUTIONS IN PLACE. ENDORSED TO NIGHT NURSE.
[2020-03-30 20:15] VITALS: BP 130/68
--- NOTE | 2020-03-31 03:13 | NUR ---
VSS-AFEBRILE. LUNGS CLEAR-ROOM AIR. C/O ABDOMINAL PAIN RATED 8/10. ORDERED PAIN MEDICATIONS PROVIDE PARTIAL RELIEF OF PAIN. MILD NAUSEA PRESENT, NO VOMITING. OOB WITH SBA DUE TO REPORTED FALL AT HOME PRIOR TO ADMISSION. RIGHT CHEST POC WAS ACCESSED ON ADMIT, FLUSHES AND DRAWS WELL. ONE EPISODE OF DIARRHEA EARLY IN SHIFT, SPECIMEN OBTAINED AND SENT TO LAB. FALL PRECAUTIONS IN PLACE, CALLS APPROPRIATELY FOR ANY NEEDED ASSISTANCE.
[2020-03-31 05:02] LABS: HEMATOCRIT 29.4 % (37.0-47.0); HEMOGLOBIN 9.6 gm/dL (12.0-15.0); MCH 25.6 pg (26.0-34.0); MCHC 32.7 g/dL (28.0-37.0); MCV 78.1 fL (80.0-100.0); RBC 3.76 mil/uL (4.20-5.00); RDW 18.8 % (10.5-14.5); WBC 11.5 thou/uL (4.0-11.0)
[2020-03-31 05:12] LABS: CALCIUM 8.3 mg/dL (8.5-10.1); CREATININE 0.8 mg/dL (0.6-1.0); MAGNESIUM 2.2 mg/dL (1.8-2.4); POTASSIUM 3.6 mmol/L (3.5-5.1)
[2020-03-31 10:37] VITALS: BP 131/54
--- NOTE | 2020-03-31 13:23 | NUR ---
Received asleep on bed. On nothing per orem- pt informed and aware. Vital signs stable. On MS, not on telemetry; no signgs and complains of chest pain, crushing sensation and heaviness. On room air. No nausea, no vomiting noted. With portacath at R chest- accessed; ongoing NS at 125cc/hr, infusing well; dressing C/D/I. Falls bundle in place. Maintained on isolation due to Cdiff, a/w result. Complained of pain, 03/22- due PRN pain meds given as prescribed- Dr Malcolm informed re: constant pain level and no pain relief from medications. Continent of bowel and bladder, assisted in going to the toilet- patient very drowsy and unstable on her feet- falls bundle in place. To continue monitoring patient. Pt seen and examined by Gastro FINANCIAL SALES ASSISTANT this afternoon- pt asleep, will come back this PM.
[2020-03-31 14:46] VITALS: BP 138/66
[2020-03-31 19:19] VITALS: BP 130/62
--- NOTE | 2020-03-31 22:30 | NUR ---
Assumed pt care at 1900. A/OX4,VSS. Pt c/o abd pain asking why the doctor took her off IV Dilaudid;informed the recommendation per GI is to cut down on her narcotics d/t GI issues and she was started on PO pain meds. Pt verbalized understanding but would like to talk to the MD tomorrow;will relay request to day nurse. Medication with Methadone at HS as scheduled even though she kept saying it doesn't work on her;on reassessment pt observed sleeping soundly. Pt's SO called and updated on pt's status per request indicated he knows pt has GI issues r/t not following dietary recommendations and it's not r/t sickle cell crisis and really doesn't require hospitalization. Also emphasized they'll be following recommended diet upon discharge. Fall precautions in place,agrees to call for help as needed. IVF infusing via Right chest port w/o any problems noted.Will continue to monitor pt.
[2020-04-01 05:54] LABS: HEMOGLOBIN 9.6 gm/dL (12.0-15.0); MCH 25.8 pg (26.0-34.0); MCV 78.2 fL (80.0-100.0); RBC 3.71 mil/uL (4.20-5.00); RDW 18.8 % (10.5-14.5); WBC 9.8 thou/uL (4.0-11.0)
[2020-04-01 06:22] LABS: CALCIUM 8.5 mg/dL (8.5-10.1); MAGNESIUM 1.8 mg/dL (1.8-2.4); POTASSIUM 3.8 mmol/L (3.5-5.1)
[2020-04-01 07:22] VITALS: BP 121/60
[2020-04-01] MEDS ORDERED: VITAMIN D3125 MC1 PO (11:31)
--- NOTE | 2020-04-01 11:47 | NUR ---
ASSUMED PT CARE THIS AM. PT VITAL SIGNS STABLE, A&OX4. PT REPORTS NAUSEA AND PAIN IN HER STOMACH. NAUSEA MEDS GIVEN PER EMAR. PT REQUESTED IV MEDS FOR PAIN FROM , NOT PLEASED WITH PO PAIN MEDS. PT REFUSING PO PAIN MEDS AT THIS TIME. PT AMBULATORY TO BATHROOM. PORT WORKING WELL. WILL CONTINUE TO MONITOR.
[2020-04-01 13:46] VITALS: BP 131/59
[2020-04-01 15:14] VITALS: BP 152/80
--- NOTE | 2020-04-01 15:22 | NUR ---
AGUS HAD INDICATED THAT PT IS MEDICALLY STABLE TO DC HOME THIS DAY. PT DOESN'T FEEL WELL ENOUGH TO DC. DC WAS DEPENENET ON WHETHER PT KEPT HER LUNCH DOWN.. PT DIDN'T EAT HER LUNCH. PT IS TO DC HOME TO SELF CARE WITH NO OTHER CM INTERVENTION ONCE MEDICALLY STABLE.
[2020-04-01 19:00] VITALS: BP 141/69
[2020-04-02 05:48] LABS: HEMATOCRIT 29.6 % (37.0-47.0); HEMOGLOBIN 9.8 gm/dL (12.0-15.0); MCHC 33.2 g/dL (28.0-37.0); MCV 78.2 fL (80.0-100.0); RBC 3.79 mil/uL (4.20-5.00); RDW 19.1 % (10.5-14.5); WBC 11.2 thou/uL (4.0-11.0)
[2020-04-02 06:33] LABS: CALCIUM 8.9 mg/dL (8.5-10.1); CREATININE 0.9 mg/dL (0.6-1.0); MAGNESIUM 1.7 mg/dL (1.8-2.4); POTASSIUM 3.6 mmol/L (3.5-5.1)
--- NOTE | 2020-04-02 06:42 | NUR ---
Pt. c/o chronic pain in both legs and abdomen. She has had po medication for pain with little relief of pain. Reports to staff she has had some diarrhea, but no witnessed any. Bed alarm is on.
[2020-04-02 07:34] VITALS: BP 142/75
[2020-04-02] MEDS ORDERED: PHENERGAN 25 MG25 M1 PO (09:08)
[2020-04-02] MEDS ORDERED: NORCO 10-325 T1 EACH PO (09:12)
[2020-04-02 10:33] VITALS: BP 142/75
--- NOTE | 2020-04-02 13:40 | NUR ---
PT A&OX4, VSS, GERALIZED PAIN. C/O N/V/D, I NOTICED ONE LOOSE STOOL THIS AM. HER VOMIT WAS THIN AND CLEAR. NAUSEA MEDICATION, IMMODIUM, AND PAIN MEDICATION GIVE. PATIENT PROTESTED AND STATED SHE DIDNT FEEL WELL ENOUGH TO GO HOME. PATIENT SPOKE WITH ADMINISTRATIVE JUDGE AND TWO DOCTORS CLEARED HER TO DISCHARGE. PATIENTS RIGHT CHEST PORT WAS REMOVED. NO C/O N/V/D SINCE THIS A.M. ALL BELONGINGS WITH PATIENT. DAUGHTER AT BEDSIDE. NO SIGNS OF DISTRESS AT DISCHARGE.
== END 2020-04-02 14:12 | disposition home or self-care (01) | DRG 392 ==
LOC: ER 11:36 → 4S 16:01 → 4W 16:01
PROVIDERS: Nurse Practitioner; ADMIT Internal Medicine; ATTEND Internal Medicine
DX: K52.9 Noninfective gastroenteritis and colitis, unspecified (principal); E87.6 Hypokalemia; E83.42 Hypomagnesemia; D57.1 Sickle-cell disease without crisis; G89.29 Other chronic pain; Z90.81 Acquired absence of spleen; Z90.49 Acquired absence of other specified parts of digestive tract; Z88.5 Allergy status to narcotic agent; Z88.8 Allergy status to other drugs, medicaments and biological substances; Z91.041 Radiographic dye allergy status; Z86.711 Personal history of pulmonary embolism; Z79.01 Long term (current) use of anticoagulants; Z86.718 Personal history of other venous thrombosis and embolism
CPT/HCPCS: 10040

== ENCOUNTER 2020-05-05 09:26 | Emergency (ER) | payer BC, OTHER ==
[~2020-05-05] VITALS: Ht 157.5 cm; Wt 69.0 kg
[~2020-05-05 09:26] MED LIST changes: +VITAMIN D3125 MC1 PO
[2020-05-05] MEDS ORDERED: AMOXICILLIN 50500 MG PO (10:47)
[2020-05-05 12:21] VITALS: BP 128/77
== END 2020-05-05 12:24 | disposition home or self-care (01) ==
LOC: ER 09:26
DX: D57.00 Hb-SS disease with crisis, unspecified (principal); Z86.2 Personal history of diseases of the blood and blood-forming organs and certain disorders involving the immune mechanism; Z90.49 Acquired absence of other specified parts of digestive tract; Z86.73 Personal history of transient ischemic attack (TIA), and cerebral infarction without residual deficits; Z79.899 Other long term (current) drug therapy; Z87.891 Personal history of nicotine dependence; Z79.2 Long term (current) use of antibiotics; Z88.5 Allergy status to narcotic agent; Z91.018 Allergy to other foods; Z91.041 Radiographic dye allergy status

== ENCOUNTER 2020-06-01 10:28 | Emergency (ER) | payer BC, OTHER ==
[~2020-06-01] VITALS: Ht 165.1 cm; Wt 54.4 kg
[~2020-06-01 10:28] MED LIST changes: +AMOXICILLIN 50500 MG PO
[2020-06-01 11:11] LABS: URINE BILIRUBIN NEGATIVE (Negative); URINE BLOOD NEGATIVE (Negative); URINE CLARITY CLEAR; URINE COLOR YELLOW; URINE GLUCOSE-RANDOM* NEGATIVE (Negative); URINE KETONES NEGATIVE (Negative); URINE LEUKOCYTES-REFLEX NEGATIVE (Negative); URINE NITRITE-REFLEX NEGATIVE (Negative); URINE PROTEIN (DIPSTICK) NEGATIVE (Negative); URINE UROBILINOGEN 0.2 E.U./dl (0.2-1.0)
[2020-06-01] MEDS ORDERED: XARELTO20 MG PO (11:29)
[2020-06-01 11:35] LABS: CALCIUM 9.1 mg/dL (8.5-10.1); CREATININE 0.8 mg/dL (0.6-1.0); POTASSIUM 3.9 mmol/L (3.5-5.1)
[2020-06-01 11:40] LABS: ALBUMIN 3.5 g/dL (3.4-5.0); TOTAL BILIRUBIN 0.6 mg/dL (0.2-1.0); TOTAL PROTEIN 7.4 g/dL (6.4-8.2)
[2020-06-01 11:42] LABS: ABSOLUTE RETIC COUNT 0.0551 10^6/uL; HEMATOCRIT 35.2 % (37.0-47.0); HEMOGLOBIN 11.4 gm/dL (12.0-15.0); MCHC 32.3 g/dL (28.0-37.0); MCV 80.6 fL (80.0-100.0); OBSERVED RETIC COUNT 1.26 % (0.6-2.6); PLATELET COUNT 422 thou/uL (150-400); RBC 4.37 mil/uL (4.20-5.00); RDW 18.8 % (10.5-14.5); WBC 9.7 thou/uL (4.0-11.0)
[2020-06-01 12:37] LABS: ABSOLUTE NEUTROPHILS 6.5 thou/uL (1.4-8.2)
[2020-06-01 12:39] LABS: TARGET CELLS 4+
[2020-06-01 12:40] LABS: ANISOCYTOSIS 2+
[2020-06-01] MEDS ORDERED: NORCO 10-325 T1 EACH PO (13:02)
[2020-06-01 13:23] VITALS: BP 100/41
[2020-06-02] MEDS ORDERED: PROMS25 WY RECTAL (14:27)
[2020-06-02] MEDS ORDERED: ZOFRAN ODT4 MG PO (14:27)
== END 2020-06-01 13:24 | disposition home or self-care (01) ==
LOC: ER 10:28
PROVIDERS: Physician Assistant
DX: D57.1 Sickle-cell disease without crisis (principal); M54.9 Dorsalgia, unspecified; M79.604 Pain in right leg; M79.605 Pain in left leg; R19.7 Diarrhea, unspecified; Z90.49 Acquired absence of other specified parts of digestive tract; Z86.718 Personal history of other venous thrombosis and embolism; Z86.711 Personal history of pulmonary embolism; Z79.899 Other long term (current) drug therapy; Z88.5 Allergy status to narcotic agent; Z91.041 Radiographic dye allergy status; Z91.018 Allergy to other foods; Z87.891 Personal history of nicotine dependence

== ENCOUNTER 2020-06-02 09:36 | Emergency (ER) | payer BC, OTHER ==
[~2020-06-02] VITALS: Ht 165.1 cm; Wt 54.4 kg
[2020-06-02 12:13] LABS: HEMATOCRIT 34.2 % (37.0-47.0); HEMOGLOBIN 11.4 gm/dL (12.0-15.0); MCH 25.8 pg (26.0-34.0); MCHC 33.3 g/dL (28.0-37.0); MCV 77.6 fL (80.0-100.0); PLATELET COUNT 459 thou/uL (150-400); RBC 4.41 mil/uL (4.20-5.00); RDW 18.4 % (10.5-14.5); WBC 8.7 thou/uL (4.0-11.0)
[2020-06-02 12:28] LABS: ANION GAP 16 mmol/L (7-16); BUN 6 mg/dL (7-18); CHLORIDE 108 mmol/L (98-107); CO2 19 mmol/L (21-32); GLUCOSE 114 mg/dL (74-106); POTASSIUM 3.2 mmol/L (3.5-5.1); SODIUM 143 mmol/L (136-145)
[2020-06-02 12:37] LABS: ALBUMIN 3.9 g/dL (3.4-5.0); DIRECT BILIRUBIN 0.1 mg/dL (<0.1-0.2); LIPASE 119 U/L (73-393); SGOT 15 U/L (15-37); SGPT 15 U/L (30-65); TOTAL BILIRUBIN 0.6 mg/dL (0.2-1.0); TOTAL PROTEIN 7.2 g/dL (6.4-8.2); TROPONIN-I <0.06 ng/mL (<0.06)
[2020-06-02 12:45] LABS: ABSOLUTE NEUTROPHILS 5.7 thou/uL (1.4-8.2); ANISOCYTOSIS 2+; LARGE PLATELETS FEW; MICROCYTES 2+; NUCLEATED RBCS 1 /100WBC; PLATELET ESTIMATE NORMAL; TARGET CELLS 2+
--- NOTE | 2020-06-02 13:24 | EKG ---
[place] [address] [facility] [place] [address] ELECTROCARDIOGRAM REPORT Name: ROMARIO BLEDSOE [facility] #: [id number] Admission: 06/02/20 Attend Phys: Discharge: Date of : 78 Report #: [id number] 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1980 Requested By: Corey Montes De Oca Order Number: [id number] MD: Erich Odom Measurements Intervals [place] Rate: 57 P: 46 NE: 154 QRS: 25 QRSD: 99 T: -3 QT: 399 QTc: 389 Interpretive Statements Sinus arrhythmia Low voltage, precordial leads RSR' in V1 or V2, right VCD or RVH Nonspecific T abnormalities, diffuse leads Compared to ECG 02/01/2020 19:00:00 Low QRS voltage now present Right ventricular hypertrophy now present RSR' in V1 or V2 now present Sinus rhythm no longer present T-wave abnormality still present Electronically Signed On 06-02-2020 13:24:14 [employer] by Erich Odom [email or web address] <ELECTRONICALLY SIGNED> By: Erich Odom MD, FACC 06/02/20 1324 [id number] Erich Odom MD, [facility] /EPI
[2020-06-02] MEDS ORDERED: PROMS25 WY RECTAL (14:27)
[2020-06-02] MEDS ORDERED: ZOFRAN ODT4 MG PO (14:27)
[2020-06-02 14:47] VITALS: BP 122/74
== END 2020-06-02 15:08 | disposition home or self-care (01) ==
LOC: ER 09:36
PROVIDERS: Emergency Medicine
DX: F11.23 Opioid dependence with withdrawal (principal); R11.2 Nausea with vomiting, unspecified; R19.7 Diarrhea, unspecified; R55 Syncope and collapse; M54.9 Dorsalgia, unspecified; R10.9 Unspecified abdominal pain; K08.89 Other specified disorders of teeth and supporting structures; Z90.89 Acquired absence of other organs; Z90.49 Acquired absence of other specified parts of digestive tract; Z86.718 Personal history of other venous thrombosis and embolism; Z86.711 Personal history of pulmonary embolism; Z79.899 Other long term (current) drug therapy; Z88.5 Allergy status to narcotic agent; Z91.018 Allergy to other foods; Z87.891 Personal history of nicotine dependence

== ENCOUNTER 2020-06-19 12:10 | Emergency (ER) | payer BC, OTHER ==
[~2020-06-19] VITALS: Ht 157.5 cm; Wt 70.8 kg
[2020-06-19 14:12] LABS: RDW 18.9 % (10.5-14.5)
[2020-06-19 14:14] LABS: ABSOLUTE RETIC COUNT 0.0718 10^6/uL; HEMOGLOBIN 12.8 gm/dL (12.0-15.0); MCH 25.7 pg (26.0-34.0); MCHC 32.8 g/dL (28.0-37.0); MCV 78.4 fL (80.0-100.0); OBSERVED RETIC COUNT 1.45 % (0.6-2.6); PLATELET COUNT 444 thou/uL (150-400); RBC 4.97 mil/uL (4.20-5.00)
[2020-06-19 14:15] LABS: CALCIUM 9.9 mg/dL (8.5-10.1); CREATININE 0.9 mg/dL (0.6-1.0); POTASSIUM 4.5 mmol/L (3.5-5.1)
[2020-06-19 14:22] LABS: ALBUMIN 4.3 g/dL (3.4-5.0); TOTAL BILIRUBIN 0.8 mg/dL (0.2-1.0); TOTAL PROTEIN 7.9 g/dL (6.4-8.2)
[2020-06-19 15:10] LABS: ABSOLUTE NEUTROPHILS 5.5 thou/uL (1.4-8.2); ANISOCYTOSIS 2+
[2020-06-19 15:11] VITALS: BP 100/62
[2020-06-19 15:11] LABS: TARGET CELLS 1+
[2020-06-19 15:13] LABS: MACROCYTES 1+
--- NOTE | 2020-06-20 07:18 | EKG ---
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 : 1980 Requested By: Aly Banuelos Order Number: [id number] MD: Lasha Lara Measurements Intervals [place] Rate: 112 P: 53 NV: 131 QRS: 30 QRSD: 80 T: -56 QT: 339 QTc: 463 Interpretive Statements Sinus tachycardia Nonspecific T abnormalities, diffuse leads Compared to ECG 06/02/2020 09:57:16 T-wave abnormality still present Electronically Signed On 06-20-2020 7:18:31 [employer] by Lasha Lara [email or web address] <ELECTRONICALLY SIGNED> By: Lasha Lara MD, [facility] 06/20/20 0718 1226 1226 Lasha Lara MD, FACC /EPI
== END 2020-06-19 15:22 | disposition home or self-care (01) ==
LOC: ER 12:10
PROVIDERS: Emergency Medicine
DX: D57.00 Hb-SS disease with crisis, unspecified (principal); Z90.49 Acquired absence of other specified parts of digestive tract; Z86.2 Personal history of diseases of the blood and blood-forming organs and certain disorders involving the immune mechanism; Z79.899 Other long term (current) drug therapy; Z87.891 Personal history of nicotine dependence; Z88.5 Allergy status to narcotic agent; Z91.041 Radiographic dye allergy status; Z91.018 Allergy to other foods

== ENCOUNTER 2020-07-01 12:41 | Emergency (ER) | payer BC, OTHER ==
[~2020-07-01] VITALS: Ht 160 cm; Wt 53.1 kg
[2020-07-01 13:50] LABS: URINE BILIRUBIN NEGATIVE (Negative); URINE BLOOD NEGATIVE (Negative); URINE CLARITY CLEAR; URINE COLOR YELLOW; URINE GLUCOSE-RANDOM* NEGATIVE (Negative); URINE KETONES NEGATIVE (Negative); URINE LEUKOCYTES-REFLEX TRACE (Negative); URINE NITRITE-REFLEX NEGATIVE (Negative); URINE PROTEIN (DIPSTICK) NEGATIVE (Negative); URINE UROBILINOGEN 0.2 E.U./dl (0.2-1.0)
[2020-07-01 17:34] LABS: CALCIUM 9.4 mg/dL (8.5-10.1); CREATININE 0.8 mg/dL (0.6-1.0)
[2020-07-01 17:35] LABS: ABSOLUTE RETIC COUNT 0.1167 10^6/uL; HEMATOCRIT 31.2 % (37.0-47.0); HEMOGLOBIN 10.5 gm/dL (12.0-15.0); MCH 26.5 pg (26.0-34.0); MCHC 33.6 g/dL (28.0-37.0); MCV 78.9 fL (80.0-100.0); OBSERVED RETIC COUNT 2.95 % (0.6-2.6); PLATELET COUNT 418 thou/uL (150-400); RBC 3.95 mil/uL (4.20-5.00); RDW 18.7 % (10.5-14.5); WBC 10.3 thou/uL (4.0-11.0)
[2020-07-01 17:40] LABS: ALBUMIN 3.6 g/dL (3.4-5.0); TOTAL BILIRUBIN 0.5 mg/dL (0.2-1.0); TOTAL PROTEIN 6.7 g/dL (6.4-8.2)
[2020-07-01 17:59] LABS: ABSOLUTE NEUTROPHILS 4.6 thou/uL (1.4-8.2); ATYPICAL LYMPHS 2 %
[2020-07-01 18:00] LABS: TARGET CELLS 4+
[2020-07-01 18:01] VITALS: BP 118/65
[2020-07-01 18:01] LABS: SCHISTOCYTES FEW
[2020-07-01 18:03] LABS: ANISOCYTOSIS 2+; LARGE PLATELETS FEW
== END 2020-07-01 18:05 | disposition home or self-care (01) ==
LOC: ER 12:41
PROVIDERS: Emergency Medicine; Physician Assistant
DX: D57.1 Sickle-cell disease without crisis (principal); R10.30 Lower abdominal pain, unspecified; M79.651 Pain in right thigh; M79.652 Pain in left thigh; R11.2 Nausea with vomiting, unspecified; Z90.49 Acquired absence of other specified parts of digestive tract; Z86.718 Personal history of other venous thrombosis and embolism; Z86.711 Personal history of pulmonary embolism; Z79.899 Other long term (current) drug therapy; Z88.5 Allergy status to narcotic agent; Z91.018 Allergy to other foods; Z91.041 Radiographic dye allergy status; Z87.891 Personal history of nicotine dependence

== ENCOUNTER 2020-07-27 09:33 | Emergency (ER) | payer BC, OTHER ==
[~2020-07-27] VITALS: Ht 157.5 cm; Wt 70.8 kg
[2020-07-27 11:52] LABS: HEMOGLOBIN 11.5 gm/dL (12.0-15.0); MCV 78.6 fL (80.0-100.0)
[2020-07-27 11:56] LABS: CALCIUM 9.9 mg/dL (8.5-10.1); HEMATOCRIT 34.8 % (37.0-47.0); MCH 25.9 pg (26.0-34.0); OBSERVED RETIC COUNT 1.44 % (0.6-2.6); PLATELET COUNT 392 thou/uL (150-400); POTASSIUM 4.5 mmol/L (3.5-5.1); RBC 4.42 mil/uL (4.20-5.00); RDW 18.2 % (10.5-14.5); WBC 8.9 thou/uL (4.0-11.0)
[2020-07-27 12:02] LABS: ALBUMIN 4.1 g/dL (3.4-5.0); DIRECT BILIRUBIN 0.2 mg/dL (<0.1-0.2); TOTAL BILIRUBIN 0.8 mg/dL (0.2-1.0); TOTAL PROTEIN 7.4 g/dL (6.4-8.2)
[2020-07-27 13:00] LABS: ABSOLUTE NEUTROPHILS 5.2 thou/uL (1.4-8.2)
[2020-07-27 13:02] LABS: ANISOCYTOSIS 2+
[2020-07-27 13:03] LABS: TARGET CELLS 2+
[2020-07-27 13:07] LABS: LARGE PLATELETS FEW
[2020-07-27 14:25] VITALS: BP 109/82
== END 2020-07-27 14:57 | disposition home or self-care (01) ==
LOC: ER 09:33
PROVIDERS: Emergency Medicine
DX: D57.00 Hb-SS disease with crisis, unspecified (principal); M79.604 Pain in right leg; M79.605 Pain in left leg; R11.0 Nausea; Z90.49 Acquired absence of other specified parts of digestive tract; Z86.718 Personal history of other venous thrombosis and embolism; Z86.711 Personal history of pulmonary embolism; Z79.899 Other long term (current) drug therapy; Z88.5 Allergy status to narcotic agent; Z91.041 Radiographic dye allergy status; Z91.018 Allergy to other foods; Z87.891 Personal history of nicotine dependence

== ENCOUNTER 2020-08-12 14:37 | Emergency (ER) | payer BC, OTHER ==
[~2020-08-12] VITALS: Ht 157.5 cm; Wt 69.8 kg
[2020-08-12 16:18] LABS: URINE BILIRUBIN NEGATIVE (Negative); URINE BLOOD NEGATIVE (Negative); URINE CLARITY CLEAR; URINE COLOR YELLOW; URINE GLUCOSE-RANDOM* NEGATIVE (Negative); URINE KETONES NEGATIVE (Negative); URINE LEUKOCYTES-REFLEX NEGATIVE (Negative); URINE NITRITE-REFLEX NEGATIVE (Negative); URINE PROTEIN (DIPSTICK) NEGATIVE (Negative); URINE SPECIFIC GRAVITY 1.015 (1.005-1.035); URINE UROBILINOGEN 0.2 E.U./dl (0.2-1.0)
[2020-08-12 16:29] LABS: ABSOLUTE RETIC COUNT 0.1089 10^6/uL; HEMATOCRIT 33.9 % (37.0-47.0); MCH 26.2 pg (26.0-34.0); MCHC 32.6 g/dL (28.0-37.0); MCV 80.3 fL (80.0-100.0); OBSERVED RETIC COUNT 2.58 % (0.6-2.6); PLATELET COUNT 415 thou/uL (150-400); RBC 4.22 mil/uL (4.20-5.00); RDW 18.2 % (10.5-14.5); WBC 10.3 thou/uL (4.0-11.0)
[2020-08-12 16:41] LABS: CALCIUM 9.1 mg/dL (8.5-10.1); POTASSIUM 3.5 mmol/L (3.5-5.1)
[2020-08-12 16:47] LABS: ALBUMIN 3.9 g/dL (3.4-5.0); TOTAL BILIRUBIN 0.6 mg/dL (0.2-1.0); TOTAL PROTEIN 7.4 g/dL (6.4-8.2)
[2020-08-12 16:55] LABS: ABSOLUTE NEUTROPHILS 4.7 thou/uL (1.4-8.2); ATYPICAL LYMPHS 2 %
[2020-08-12 16:56] LABS: ANISOCYTOSIS 1+; PLATELET ESTIMATE INCREASED
[2020-08-12 16:57] LABS: HYPOCHROMASIA SLIGHT
[2020-08-12 17:03] LABS: POIKILOCYTOSIS 1+; TARGET CELLS 1+
[2020-08-12 18:15] VITALS: BP 111/47
== END 2020-08-12 18:15 | disposition home or self-care (01) ==
LOC: ER 14:37
PROVIDERS: Physician Assistant
DX: D57.1 Sickle-cell disease without crisis (principal); N93.8 Other specified abnormal uterine and vaginal bleeding; Z90.49 Acquired absence of other specified parts of digestive tract; Z79.899 Other long term (current) drug therapy; Z88.5 Allergy status to narcotic agent; Z91.041 Radiographic dye allergy status; Z88.8 Allergy status to other drugs, medicaments and biological substances

== ENCOUNTER 2020-08-28 14:40 | Emergency (ER) | payer BC, OTHER ==
[~2020-08-28] VITALS: Ht 157.5 cm; Wt 71.2 kg
[2020-08-28] MEDS ORDERED: DILAUDID 2 MG TA2 MG PO (15:01)
[2020-08-28] MEDS ORDERED: NORCO 10-325 T1 EACH PO (15:01)
[2020-08-28 18:34] LABS: POTASSIUM 3.7 mmol/L (3.5-5.1)
[2020-08-28 18:40] LABS: ALBUMIN 4.2 g/dL (3.4-5.0); TOTAL BILIRUBIN 0.8 mg/dL (0.2-1.0); TOTAL PROTEIN 7.9 g/dL (6.4-8.2)
[2020-08-28 18:57] LABS: HEMATOCRIT 36.9 % (37.0-47.0); MCH 26.3 pg (26.0-34.0); MCHC 32.6 g/dL (28.0-37.0); MCV 80.7 fL (80.0-100.0); OBSERVED RETIC COUNT 2.63 % (0.6-2.6); PLATELET COUNT 421 thou/uL (150-400); RBC 4.57 mil/uL (4.20-5.00); RDW 17.9 % (10.5-14.5)
[2020-08-28 19:44] LABS: ABSOLUTE NEUTROPHILS 4.6 thou/uL (1.4-8.2); ATYPICAL LYMPHS 3 %
[2020-08-28 19:47] LABS: ANISOCYTOSIS 1+
[2020-08-28 19:48] LABS: POLYCHROMASIA 1+
[2020-08-28 19:49] LABS: TARGET CELLS 1+
[2020-08-28 20:11] VITALS: BP 102/64
== END 2020-08-28 20:11 | disposition home or self-care (01) ==
LOC: ER 14:40
PROVIDERS: Physician Assistant
DX: D57.818 Other sickle-cell disorders with crisis with other specified complication (principal); M79.662 Pain in left lower leg; M79.661 Pain in right lower leg; Z87.891 Personal history of nicotine dependence; Z88.5 Allergy status to narcotic agent; Z91.041 Radiographic dye allergy status; Z79.899 Other long term (current) drug therapy; Z90.49 Acquired absence of other specified parts of digestive tract; Z86.718 Personal history of other venous thrombosis and embolism

== ENCOUNTER 2020-09-05 09:37 | Emergency (ER) | payer BC, OTHER ==
[~2020-09-05] VITALS: Ht 170.2 cm; Wt 68.0 kg
[2020-09-05 13:39] VITALS: BP 105/78
== END 2020-09-05 13:51 | disposition home or self-care (01) ==
LOC: ER 09:37
DX: D57.00 Hb-SS disease with crisis, unspecified (principal); Z90.49 Acquired absence of other specified parts of digestive tract; Z86.2 Personal history of diseases of the blood and blood-forming organs and certain disorders involving the immune mechanism; Z79.899 Other long term (current) drug therapy; Z87.891 Personal history of nicotine dependence; Z88.5 Allergy status to narcotic agent; Z91.018 Allergy to other foods; Z91.041 Radiographic dye allergy status

== ENCOUNTER 2020-09-22 13:43 | Emergency (ER) | payer BC, OTHER ==
[~2020-09-22] VITALS: Ht 170.2 cm; Wt 68.0 kg
[2020-09-22 18:09] VITALS: BP 132/55
== END 2020-09-22 18:10 | disposition home or self-care (01) ==
LOC: ER 13:43
DX: D57.1 Sickle-cell disease without crisis (principal); E86.0 Dehydration; R25.2 Cramp and spasm; Z86.2 Personal history of diseases of the blood and blood-forming organs and certain disorders involving the immune mechanism; Z90.49 Acquired absence of other specified parts of digestive tract; Z79.899 Other long term (current) drug therapy; Z87.891 Personal history of nicotine dependence; Z88.5 Allergy status to narcotic agent; Z91.018 Allergy to other foods; Z91.041 Radiographic dye allergy status

== ENCOUNTER 2020-10-01 14:25 | Emergency (ER) | payer BC, OTHER ==
[~2020-10-01] VITALS: Ht 157.5 cm; Wt 69.8 kg
[2020-10-01 14:42] LABS: URINE BILIRUBIN NEGATIVE (Negative); URINE BLOOD NEGATIVE (Negative); URINE CLARITY CLEAR; URINE COLOR YELLOW; URINE GLUCOSE-RANDOM* NEGATIVE (Negative); URINE KETONES NEGATIVE (Negative); URINE LEUKOCYTES-REFLEX TRACE (Negative); URINE NITRITE-REFLEX NEGATIVE (Negative); URINE PROTEIN (DIPSTICK) NEGATIVE (Negative); URINE SPECIFIC GRAVITY 1.015 (1.005-1.035); URINE UROBILINOGEN 0.2 E.U./dl (0.2-1.0)
[2020-10-01 16:24] LABS: HEMATOCRIT 33.7 % (37.0-47.0); HEMOGLOBIN 11.3 gm/dL (12.0-15.0); MCHC 33.4 g/dL (28.0-37.0); MCV 80.9 fL (80.0-100.0); PLATELET COUNT 397 thou/uL (150-400); RBC 4.17 mil/uL (4.20-5.00); RDW 16.4 % (10.5-14.5); WBC 8.1 thou/uL (4.0-11.0)
[2020-10-01 16:26] LABS: CALCIUM 8.7 mg/dL (8.5-10.1); CREATININE 0.7 mg/dL (0.6-1.0); POTASSIUM 3.6 mmol/L (3.5-5.1)
[2020-10-01 16:30] LABS: OBSERVED RETIC COUNT 1.47 % (0.6-2.6)
[2020-10-01 16:37] LABS: ALBUMIN 3.6 g/dL (3.4-5.0); TOTAL BILIRUBIN 0.7 mg/dL (0.2-1.0); TOTAL PROTEIN 6.9 g/dL (6.4-8.2)
[2020-10-01 17:05] LABS: ABSOLUTE NEUTROPHILS 4.7 thou/uL (1.4-8.2); TARGET CELLS 3+; TEARDROPS FEW
[2020-10-01 17:06] LABS: LARGE PLATELETS FEW; POLYCHROMASIA SLIGHT
[2020-10-01 17:25] VITALS: BP 125/55
== END 2020-10-01 17:26 | disposition home or self-care (01) ==
LOC: ER 14:25
PROVIDERS: Emergency Medicine
DX: R10.11 Right upper quadrant pain (principal); D57.80 Other sickle-cell disorders without crisis; Z87.891 Personal history of nicotine dependence; Z88.5 Allergy status to narcotic agent; Z91.041 Radiographic dye allergy status; Z79.899 Other long term (current) drug therapy; Z90.49 Acquired absence of other specified parts of digestive tract; Z86.718 Personal history of other venous thrombosis and embolism

== ENCOUNTER 2020-10-14 12:09 | Emergency (ER) | payer BC, OTHER ==
[~2020-10-14] VITALS: Ht 157.5 cm; Wt 69.8 kg
[2020-10-14 12:53] LABS: URINE BILIRUBIN NEGATIVE (Negative); URINE BLOOD NEGATIVE (Negative); URINE CLARITY CLEAR; URINE COLOR YELLOW; URINE GLUCOSE-RANDOM* NEGATIVE (Negative); URINE KETONES NEGATIVE (Negative); URINE LEUKOCYTES-REFLEX NEGATIVE (Negative); URINE NITRITE-REFLEX NEGATIVE (Negative); URINE PROTEIN (DIPSTICK) NEGATIVE (Negative); URINE UROBILINOGEN 0.2 E.U./dl (0.2-1.0)
[2020-10-14 13:25] LABS: HEMATOCRIT 33.3 % (37.0-47.0); HEMOGLOBIN 11.2 gm/dL (12.0-15.0); MCH 26.8 pg (26.0-34.0); MCHC 33.5 g/dL (28.0-37.0); MCV 80.1 fL (80.0-100.0); PLATELET COUNT 418 thou/uL (150-400); RBC 4.16 mil/uL (4.20-5.00); RDW 16.9 % (10.5-14.5); WBC 9.5 thou/uL (4.0-11.0)
[2020-10-14 13:29] LABS: CALCIUM 8.8 mg/dL (8.5-10.1); CREATININE 0.9 mg/dL (0.6-1.0); OBSERVED RETIC COUNT 1.72 % (0.6-2.6); POTASSIUM 3.9 mmol/L (3.5-5.1)
[2020-10-14 13:35] LABS: ALBUMIN 3.6 g/dL (3.4-5.0); TOTAL BILIRUBIN 0.7 mg/dL (0.2-1.0); TOTAL PROTEIN 6.7 g/dL (6.4-8.2)
[2020-10-14 14:19] VITALS: BP 141/74
[2020-10-14 14:27] LABS: ABSOLUTE NEUTROPHILS 4.8 thou/uL (1.4-8.2); TARGET CELLS 3+; TEARDROPS 1+
[2020-10-14 14:28] LABS: LARGE PLATELETS FEW; POLYCHROMASIA 1+; SCHISTOCYTES OCCASIONAL
== END 2020-10-14 14:28 | disposition home or self-care (01) ==
LOC: ER 12:09
PROVIDERS: Emergency Medicine
DX: M79.605 Pain in left leg (principal); M79.604 Pain in right leg; D57.00 Hb-SS disease with crisis, unspecified; Z90.49 Acquired absence of other specified parts of digestive tract; Z86.2 Personal history of diseases of the blood and blood-forming organs and certain disorders involving the immune mechanism; Z87.891 Personal history of nicotine dependence; Z79.899 Other long term (current) drug therapy; Z88.5 Allergy status to narcotic agent; Z91.018 Allergy to other foods; Z91.041 Radiographic dye allergy status

== ENCOUNTER 2020-10-23 09:39 | Emergency (ER) | payer BC, OTHER ==
[~2020-10-23] VITALS: Ht 157.5 cm; Wt 69.8 kg
[2020-10-23 10:40] LABS: ABSOLUTE RETIC COUNT 0.1236 10^6/uL; HEMATOCRIT 34.4 % (37.0-47.0); HEMOGLOBIN 11.3 gm/dL (12.0-15.0); MCH 26.5 pg (26.0-34.0); MCHC 32.8 g/dL (28.0-37.0); MCV 80.7 fL (80.0-100.0); PLATELET COUNT 375 thou/uL (150-400); RBC 4.27 mil/uL (4.20-5.00); RDW 17.2 % (10.5-14.5)
[2020-10-23 10:48] LABS: CALCIUM 9.4 mg/dL (8.5-10.1); CREATININE 0.8 mg/dL (0.6-1.0); POTASSIUM 4.3 mmol/L (3.5-5.1)
[2020-10-23 11:14] LABS: ALBUMIN 3.8 g/dL (3.4-5.0); TOTAL BILIRUBIN 0.8 mg/dL (0.2-1.0); TOTAL PROTEIN 7.3 g/dL (6.4-8.2)
[2020-10-23 11:26] LABS: ABSOLUTE NEUTROPHILS 6.8 thou/uL (1.4-8.2); PLATELET ESTIMATE NORMAL; POIKILOCYTOSIS 1+; TARGET CELLS 2+
[2020-10-23 12:24] LABS: URINE BILIRUBIN NEGATIVE (Negative); URINE BLOOD NEGATIVE (Negative); URINE CLARITY CLEAR; URINE COLOR YELLOW; URINE GLUCOSE-RANDOM* NEGATIVE (Negative); URINE KETONES NEGATIVE (Negative); URINE LEUKOCYTES-REFLEX NEGATIVE (Negative); URINE NITRITE-REFLEX NEGATIVE (Negative); URINE PROTEIN (DIPSTICK) NEGATIVE (Negative); URINE UROBILINOGEN 0.2 E.U./dl (0.2-1.0)
[2020-10-23 12:50] VITALS: BP 100/61
== END 2020-10-23 12:50 | disposition home or self-care (01) ==
LOC: ER 09:39
PROVIDERS: Emergency Medicine
DX: D57.1 Sickle-cell disease without crisis (principal); R10.31 Right lower quadrant pain; R11.10 Vomiting, unspecified; Z87.891 Personal history of nicotine dependence; Z88.5 Allergy status to narcotic agent; Z91.041 Radiographic dye allergy status; Z79.899 Other long term (current) drug therapy; Z90.49 Acquired absence of other specified parts of digestive tract; Z86.718 Personal history of other venous thrombosis and embolism

== ENCOUNTER 2020-10-30 10:37 | Emergency (ER) | payer BC, OTHER ==
[~2020-10-30] VITALS: Ht 157.5 cm; Wt 69.8 kg
[2020-10-30 11:28] LABS: HEMATOCRIT 31.9 % (37.0-47.0)
[2020-10-30 11:31] LABS: HEMOGLOBIN 10.9 gm/dL (12.0-15.0); MCH 27.1 pg (26.0-34.0); MCHC 34.3 g/dL (28.0-37.0); PLATELET COUNT 393 thou/uL (150-400); RBC 4.03 mil/uL (4.20-5.00); RDW 17.4 % (10.5-14.5); WBC 9.9 thou/uL (4.0-11.0)
[2020-10-30 11:42] LABS: CALCIUM 8.7 mg/dL (8.5-10.1); CREATININE 0.8 mg/dL (0.6-1.0)
[2020-10-30 11:52] LABS: MACROCYTES 1+; PLATELET ESTIMATE NORMAL; POLYCHROMASIA 1+; TARGET CELLS 1+
[2020-10-30 14:01] VITALS: BP 108/89
== END 2020-10-30 14:01 | disposition home or self-care (01) ==
LOC: ER 10:37
PROVIDERS: Nurse Practitioner
DX: D57.1 Sickle-cell disease without crisis (principal); F17.210 Nicotine dependence, cigarettes, uncomplicated; Z88.5 Allergy status to narcotic agent; Z91.018 Allergy to other foods; Z91.041 Radiographic dye allergy status; Z90.49 Acquired absence of other specified parts of digestive tract; Z86.2 Personal history of diseases of the blood and blood-forming organs and certain disorders involving the immune mechanism; Z98.890 Other specified postprocedural states

== ENCOUNTER 2020-11-18 09:08 | Emergency (ER) | payer BC, OTHER ==
[~2020-11-18] VITALS: Ht 157.5 cm; Wt 69.4 kg
[2020-11-18 09:26] LABS: URINE BILIRUBIN NEGATIVE (Negative); URINE BLOOD NEGATIVE (Negative); URINE CLARITY CLEAR; URINE COLOR YELLOW; URINE GLUCOSE-RANDOM* NEGATIVE (Negative); URINE KETONES NEGATIVE (Negative); URINE NITRITE-REFLEX NEGATIVE (Negative); URINE PROTEIN (DIPSTICK) NEGATIVE (Negative); URINE SPECIFIC GRAVITY 1.015 (1.005-1.035); URINE UROBILINOGEN 0.2 E.U./dl (0.2-1.0)
[2020-11-18 09:28] LABS: URINE LEUKOCYTES-REFLEX 1+ (Negative)
[2020-11-18 09:47] LABS: CASTS None Seen /LPF (None Seen); CRYSTALS None Seen /LPF (None Seen); SQUAMOUS >10 Many /LPF (0-3)
[2020-11-18 09:50] LABS: BACTERIA-REFLEX >30 Many /HPF (None Seen)
[2020-11-18 09:51] LABS: RENAL EPITHELIAL CELLS 0-3 Few /LPF (None Seen); URINE RBC None Seen /HPF (NONE SEEN); URINE WBC-REFLEX 6-15 Few /HPF (0-5)
[2020-11-18 10:38] LABS: ABSOLUTE NEUTROPHILS 4.9 thou/uL (1.4-8.2); ABSOLUTE RETIC COUNT 0.1005 10^6/uL; BASOPHILS 0.7 % (0.0-2.0); EOSINOPHILS 1.5 % (0.0-3.0); HEMATOCRIT 32.1 % (37.0-47.0); HEMOGLOBIN 10.8 gm/dL (12.0-15.0); LYMPHOCYTES 32.7 % (24.0-44.0); MCH 27.7 pg (26.0-34.0); MCHC 33.8 g/dL (28.0-37.0); MCV 82.1 fL (80.0-100.0); MONOCYTES 8.7 % (1.0-8.0); OBSERVED RETIC COUNT 2.57 % (0.6-2.6); POLYS 56.4 % (36.0-66.0); RDW 16.6 % (10.5-14.5); WBC 8.8 thou/uL (4.0-11.0)
[2020-11-18 10:47] LABS: CALCIUM 8.4 mg/dL (8.5-10.1); CREATININE 0.8 mg/dL (0.6-1.0); POTASSIUM 3.9 mmol/L (3.5-5.1)
[2020-11-18 10:51] LABS: ALBUMIN 3.5 g/dL (3.4-5.0); TOTAL BILIRUBIN 0.7 mg/dL (0.2-1.0); TOTAL PROTEIN 6.7 g/dL (6.4-8.2)
[2020-11-18 11:15] VITALS: BP 99/58
[2020-11-18 12:27] LABS: LARGE PLATELETS FEW; PLATELET COUNT 423 thou/uL (150-400)
== END 2020-11-18 11:26 | disposition home or self-care (01) ==
LOC: ER 09:08
PROVIDERS: Emergency Medicine
DX: D57.00 Hb-SS disease with crisis, unspecified (principal); F17.210 Nicotine dependence, cigarettes, uncomplicated; Z90.49 Acquired absence of other specified parts of digestive tract; Z86.718 Personal history of other venous thrombosis and embolism; Z86.711 Personal history of pulmonary embolism; Z87.01 Personal history of pneumonia (recurrent); Z88.5 Allergy status to narcotic agent; Z91.041 Radiographic dye allergy status; Z79.899 Other long term (current) drug therapy

== ENCOUNTER 2020-12-01 11:30 | Emergency (ER) | payer BC, OTHER ==
[~2020-12-01] VITALS: Ht 157.5 cm; Wt 69.4 kg
[2020-12-01 13:08] LABS: HEMOGLOBIN 10.9 gm/dL (12.0-15.0)
[2020-12-01 13:10] LABS: HEMATOCRIT 32.1 % (37.0-47.0); MCH 27.3 pg (26.0-34.0); MCHC 33.8 g/dL (28.0-37.0); MCV 80.9 fL (80.0-100.0); RBC 3.97 mil/uL (4.20-5.00); RDW 16.1 % (10.5-14.5); WBC 10.6 thou/uL (4.0-11.0)
[2020-12-01 13:16] LABS: CALCIUM 8.9 mg/dL (8.5-10.1); CREATININE 0.8 mg/dL (0.6-1.0); POTASSIUM 3.8 mmol/L (3.5-5.1)
[2020-12-01 13:21] LABS: ALBUMIN 3.6 g/dL (3.4-5.0); TOTAL BILIRUBIN 0.9 mg/dL (0.2-1.0); TOTAL PROTEIN 6.8 g/dL (6.4-8.2)
[2020-12-01 13:51] LABS: ABSOLUTE NEUTROPHILS 6.7 thou/uL (1.4-8.2); PLATELET COUNT 426 thou/uL (150-400)
[2020-12-01 13:52] LABS: ANISOCYTOSIS 1+; LARGE PLATELETS FEW; TARGET CELLS 2+
[2020-12-01 15:06] VITALS: BP 105/56
== END 2020-12-01 15:04 | disposition home or self-care (01) ==
LOC: ER 11:30
PROVIDERS: Nurse Practitioner
DX: D57.00 Hb-SS disease with crisis, unspecified (principal); F17.210 Nicotine dependence, cigarettes, uncomplicated; Z90.89 Acquired absence of other organs; Z90.49 Acquired absence of other specified parts of digestive tract; Z86.2 Personal history of diseases of the blood and blood-forming organs and certain disorders involving the immune mechanism; Z88.5 Allergy status to narcotic agent; Z91.018 Allergy to other foods

== ENCOUNTER 2020-12-16 09:59 | Emergency (ER) | payer BC, OTHER ==
[~2020-12-16] VITALS: Ht 157.5 cm; Wt 69.4 kg
[2020-12-16 11:12] LABS: ABSOLUTE RETIC COUNT 0.074 10^6/uL; HEMATOCRIT 26.6 % (37.0-47.0); MCH 27.7 pg (26.0-34.0); MCHC 33.7 g/dL (28.0-37.0); MCV 82.1 fL (80.0-100.0); OBSERVED RETIC COUNT 2.28 % (0.6-2.6); RBC 3.24 mil/uL (4.20-5.00); RDW 16.5 % (10.5-14.5); WBC 6.8 thou/uL (4.0-11.0)
[2020-12-16 11:23] LABS: URINE BILIRUBIN NEGATIVE (Negative); URINE BLOOD NEGATIVE (Negative); URINE CLARITY CLEAR; URINE COLOR YELLOW; URINE GLUCOSE-RANDOM* NEGATIVE (Negative); URINE KETONES NEGATIVE (Negative); URINE NITRITE-REFLEX NEGATIVE (Negative); URINE PROTEIN (DIPSTICK) NEGATIVE (Negative); URINE SPECIFIC GRAVITY 1.015 (1.005-1.035); URINE UROBILINOGEN 0.2 E.U./dl (0.2-1.0)
[2020-12-16 11:26] LABS: URINE LEUKOCYTES-REFLEX 2+ (Negative)
[2020-12-16 11:33] LABS: CALCIUM 7.6 mg/dL (8.5-10.1); CREATININE 0.8 mg/dL (0.6-1.0); POTASSIUM 3.4 mmol/L (3.5-5.1)
[2020-12-16 11:37] LABS: CASTS None Seen /LPF (None Seen); SQUAMOUS 4-10 Moderate /LPF (0-3)
[2020-12-16 11:37] LABS: ALBUMIN 3.2 g/dL (3.4-5.0); TOTAL BILIRUBIN 0.6 mg/dL (0.2-1.0); TOTAL PROTEIN 6.1 g/dL (6.4-8.2)
[2020-12-16 11:38] LABS: BACTERIA-REFLEX 1-9 Few /HPF (None Seen); CRYSTALS None Seen /LPF (None Seen); URINE RBC None Seen /HPF (NONE SEEN); URINE WBC-REFLEX 6-15 Few /HPF (0-5)
[2020-12-16 12:25] VITALS: BP 115/63
[2020-12-19] MEDS ORDERED: MACROBID 100 M100 M1 PO (07:38)
== END 2020-12-16 12:44 | disposition home or self-care (01) ==
LOC: ER 09:59
PROVIDERS: Student in an Organized Health Care Education/Training Program
DX: M79.632 Pain in left forearm (principal); M79.631 Pain in right forearm; M79.661 Pain in right lower leg; M79.662 Pain in left lower leg; N39.0 Urinary tract infection, site not specified; B96.20 Unspecified Escherichia coli [E. coli] as the cause of diseases classified elsewhere; R19.7 Diarrhea, unspecified; R11.2 Nausea with vomiting, unspecified; F17.210 Nicotine dependence, cigarettes, uncomplicated; Z90.49 Acquired absence of other specified parts of digestive tract; Z86.718 Personal history of other venous thrombosis and embolism; Z90.89 Acquired absence of other organs; Z86.711 Personal history of pulmonary embolism; Z79.899 Other long term (current) drug therapy; Z88.5 Allergy status to narcotic agent; Z91.018 Allergy to other foods; Z91.041 Radiographic dye allergy status

== ENCOUNTER 2020-12-22 10:51 | Emergency (ER) | payer BC, OTHER ==
[~2020-12-22] VITALS: Ht 157.5 cm; Wt 68.5 kg
[2020-12-22 11:03] LABS: URINE BILIRUBIN NEGATIVE (Negative); URINE BLOOD NEGATIVE (Negative); URINE CLARITY CLEAR; URINE COLOR YELLOW; URINE GLUCOSE-RANDOM* NEGATIVE (Negative); URINE KETONES NEGATIVE (Negative); URINE LEUKOCYTES-REFLEX NEGATIVE (Negative); URINE NITRITE-REFLEX NEGATIVE (Negative); URINE PROTEIN (DIPSTICK) NEGATIVE (Negative); URINE UROBILINOGEN 0.2 E.U./dl (0.2-1.0)
[2020-12-22 11:32] LABS: HEMOGLOBIN 11.6 gm/dL (12.0-15.0); RDW 16.1 % (10.5-14.5)
[2020-12-22 11:34] LABS: HEMATOCRIT 34.2 % (37.0-47.0); MCH 27.6 pg (26.0-34.0); MCHC 33.8 g/dL (28.0-37.0); MCV 81.6 fL (80.0-100.0); OBSERVED RETIC COUNT 2.27 % (0.6-2.6); RBC 4.19 mil/uL (4.20-5.00); WBC 10.3 thou/uL (4.0-11.0)
[2020-12-22 11:41] LABS: CALCIUM 8.5 mg/dL (8.5-10.1); CREATININE 0.9 mg/dL (0.6-1.0); POTASSIUM 3.9 mmol/L (3.5-5.1)
[2020-12-22 11:46] LABS: ALBUMIN 3.6 g/dL (3.4-5.0); TOTAL BILIRUBIN 0.7 mg/dL (0.2-1.0); TOTAL PROTEIN 6.8 g/dL (6.4-8.2)
[2020-12-22 11:57] LABS: ABSOLUTE NEUTROPHILS 5.3 thou/uL (1.4-8.2); PLATELET COUNT 424 thou/uL (150-400); PLATELET ESTIMATE NORMAL
[2020-12-22] MEDS ORDERED: ONDANSETRON HCL4 M2 PO (13:19)
[2020-12-22 13:24] VITALS: BP 108/51
== END 2020-12-22 13:30 | disposition home or self-care (01) ==
LOC: ER 10:51
PROVIDERS: Physician Assistant
DX: D57.819 Other sickle-cell disorders with crisis, unspecified (principal); Z90.49 Acquired absence of other specified parts of digestive tract; D64.9 Anemia, unspecified; Z79.899 Other long term (current) drug therapy; F17.210 Nicotine dependence, cigarettes, uncomplicated; Z72.89 Other problems related to lifestyle; Z91.09 Other allergy status, other than to drugs and biological substances; Z86.718 Personal history of other venous thrombosis and embolism; Z86.711 Personal history of pulmonary embolism; Z87.01 Personal history of pneumonia (recurrent); Z91.041 Radiographic dye allergy status; Z88.5 Allergy status to narcotic agent

== ENCOUNTER 2021-01-05 11:47 | Emergency (ER) | payer BC, OTHER ==
[~2021-01-05] VITALS: Ht 157.5 cm; Wt 68.0 kg
[2021-01-05 14:24] LABS: CALCIUM 9.4 mg/dL (8.5-10.1); CREATININE 0.8 mg/dL (0.6-1.0); POTASSIUM 3.8 mmol/L (3.5-5.1)
[2021-01-05 14:30] LABS: ALBUMIN 3.8 g/dL (3.4-5.0); TOTAL BILIRUBIN 0.7 mg/dL (0.2-1.0)
[2021-01-05 14:33] LABS: ABSOLUTE RETIC COUNT 0.1176 10^6/uL; HEMATOCRIT 34.8 % (37.0-47.0); HEMOGLOBIN 11.8 gm/dL (12.0-15.0); MCH 27.3 pg (26.0-34.0); MCHC 33.8 g/dL (28.0-37.0); MCV 80.8 fL (80.0-100.0); OBSERVED RETIC COUNT 2.73 % (0.6-2.6); PLATELET COUNT 423 thou/uL (150-400); RBC 4.31 mil/uL (4.20-5.00); RDW 16.3 % (10.5-14.5); WBC 11.4 thou/uL (4.0-11.0)
[2021-01-05 15:05] LABS: ABSOLUTE NEUTROPHILS 6.6 thou/uL (1.4-8.2); ATYPICAL LYMPHS 1 %
[2021-01-05 15:07] LABS: ANISOCYTOSIS 1+
[2021-01-05 15:09] LABS: TARGET CELLS FEW
[2021-01-05 15:32] LABS: URINE BILIRUBIN NEGATIVE (Negative); URINE BLOOD NEGATIVE (Negative); URINE CLARITY CLEAR; URINE COLOR YELLOW; URINE GLUCOSE-RANDOM* NEGATIVE (Negative); URINE KETONES NEGATIVE (Negative); URINE LEUKOCYTES-REFLEX NEGATIVE (Negative); URINE NITRITE-REFLEX NEGATIVE (Negative); URINE PROTEIN (DIPSTICK) NEGATIVE (Negative); URINE SPECIFIC GRAVITY 1.015 (1.005-1.035); URINE UROBILINOGEN 0.2 E.U./dl (0.2-1.0)
[2021-01-05 17:52] VITALS: BP 120/61
== END 2021-01-05 17:59 | disposition home or self-care (01) ==
LOC: ER 11:47
PROVIDERS: Physician Assistant
DX: N83.201 Unspecified ovarian cyst, right side (principal); N94.6 Dysmenorrhea, unspecified; D57.1 Sickle-cell disease without crisis; F17.210 Nicotine dependence, cigarettes, uncomplicated; Z90.49 Acquired absence of other specified parts of digestive tract; Z79.899 Other long term (current) drug therapy; Z88.6 Allergy status to analgesic agent; Z91.02 Food additives allergy status; Z72.89 Other problems related to lifestyle

== ENCOUNTER 2021-01-19 20:12 | Emergency (ER) | payer BC, OTHER ==
[~2021-01-19] VITALS: Ht 160 cm; Wt 63.5 kg
[2021-01-19 23:16] LABS: WBC 8.8 thou/uL (4.0-11.0)
[2021-01-19 23:18] LABS: HEMATOCRIT 34.3 % (37.0-47.0); HEMOGLOBIN 11.6 gm/dL (12.0-15.0); MCH 26.8 pg (26.0-34.0); PLATELET COUNT 436 thou/uL (150-400); RBC 4.34 mil/uL (4.20-5.00); RDW 17.3 % (10.5-14.5)
[2021-01-19 23:26] LABS: CALCIUM 8.8 mg/dL (8.5-10.1); CREATININE 0.9 mg/dL (0.6-1.0); POTASSIUM 4.2 mmol/L (3.5-5.1)
[2021-01-20 01:04] LABS: ABSOLUTE NEUTROPHILS 3.8 thou/uL (1.4-8.2); ANISOCYTOSIS 1+; ATYPICAL LYMPHS 2 %; HYPOCHROMASIA 1+; LARGE PLATELETS FEW; MICROCYTES 1+; NUCLEATED RBCS 2 /100WBC; PLATELET ESTIMATE INCREASED; POIKILOCYTOSIS 1+
[2021-01-20 01:05] LABS: POLYCHROMASIA 1+; SCHISTOCYTES 1+; TARGET CELLS 1+
[2021-01-20 03:45] VITALS: BP 101/53
== END 2021-01-20 03:54 | disposition home or self-care (01) ==
LOC: ER 20:12
PROVIDERS: Nurse Practitioner
DX: U07.1 COVID-19 (principal); R07.89 Other chest pain; R53.81 Other malaise; N19 Unspecified kidney failure; F17.210 Nicotine dependence, cigarettes, uncomplicated; Z90.49 Acquired absence of other specified parts of digestive tract; Z79.899 Other long term (current) drug therapy; Z79.51 Long term (current) use of inhaled steroids; Z79.891 Long term (current) use of opiate analgesic; Z88.6 Allergy status to analgesic agent; Z91.041 Radiographic dye allergy status; Z91.018 Allergy to other foods

== ENCOUNTER 2021-02-09 19:21 | Emergency (ER) | payer BC, OTHER ==
[~2021-02-09] VITALS: Ht 157.5 cm; Wt 67.1 kg
[2021-02-09 20:18] LABS: URINE BILIRUBIN NEGATIVE (Negative); URINE BLOOD NEGATIVE (Negative); URINE CLARITY CLEAR; URINE COLOR YELLOW; URINE GLUCOSE-RANDOM* NEGATIVE (Negative); URINE KETONES NEGATIVE (Negative); URINE LEUKOCYTES-REFLEX TRACE (Negative); URINE NITRITE-REFLEX NEGATIVE (Negative); URINE PROTEIN (DIPSTICK) NEGATIVE (Negative); URINE SPECIFIC GRAVITY 1.015 (1.005-1.035); URINE UROBILINOGEN 0.2 E.U./dl (0.2-1.0)
[2021-02-09 20:41] LABS: HEMOGLOBIN 10.7 gm/dL (12.0-15.0); WBC 13.1 thou/uL (4.0-11.0)
[2021-02-09 20:43] LABS: HEMATOCRIT 32.4 % (37.0-47.0); MCH 26.1 pg (26.0-34.0); MCV 79.2 fL (80.0-100.0); PLATELET COUNT 418 thou/uL (150-400); RBC 4.09 mil/uL (4.20-5.00); RDW 16.6 % (10.5-14.5)
[2021-02-09 20:52] LABS: CALCIUM 8.7 mg/dL (8.5-10.1); POTASSIUM 3.4 mmol/L (3.5-5.1)
[2021-02-09 20:58] LABS: ALBUMIN 3.3 g/dL (3.4-5.0); TOTAL BILIRUBIN 0.8 mg/dL (0.2-1.0); TOTAL PROTEIN 6.4 g/dL (6.4-8.2)
[2021-02-09 21:09] LABS: ABSOLUTE NEUTROPHILS 6.9 thou/uL (1.4-8.2); ANISOCYTOSIS 1+; LARGE PLATELETS FEW; PLATELET ESTIMATE INCREASED; POIKILOCYTOSIS 1+; POLYCHROMASIA 1+; TARGET CELLS 1+
[2021-02-10] MEDS ORDERED: FAMOTIDINE 20 M20 MG PO (00:39)
[2021-02-10 01:01] VITALS: BP 102/44
== END 2021-02-10 01:19 | disposition admitted as inpatient to this hospital (09) ==
LOC: ER 19:21
PROVIDERS: Emergency Medicine
DX: R10.84 Generalized abdominal pain (principal); M25.512 Pain in left shoulder; R53.1 Weakness; D57.1 Sickle-cell disease without crisis; Z90.49 Acquired absence of other specified parts of digestive tract; Z90.89 Acquired absence of other organs; Z79.899 Other long term (current) drug therapy; Z88.6 Allergy status to analgesic agent; Z91.041 Radiographic dye allergy status; Z91.018 Allergy to other foods; F17.210 Nicotine dependence, cigarettes, uncomplicated

== ENCOUNTER 2021-04-08 19:17 | Emergency (ER) | payer BC, OTHER ==
[~2021-04-08] VITALS: Ht 157.5 cm; Wt 69.8 kg
[~2021-04-08 19:17] MED LIST changes: +FAMOTIDINE 20 M20 MG PO
[2021-04-08] MEDS ORDERED: TESSALON PERLE100 M1 PO (19:48)
[2021-04-08 20:01] LABS: URINE BILIRUBIN NEGATIVE (Negative); URINE BLOOD NEGATIVE (Negative); URINE CLARITY CLEAR; URINE COLOR YELLOW; URINE GLUCOSE-RANDOM* NEGATIVE (Negative); URINE KETONES NEGATIVE (Negative); URINE LEUKOCYTES-REFLEX NEGATIVE (Negative); URINE NITRITE-REFLEX NEGATIVE (Negative); URINE PROTEIN (DIPSTICK) NEGATIVE (Negative); URINE UROBILINOGEN 0.2 E.U./dl (0.2-1.0)
[2021-04-08 22:54] VITALS: BP 107/70
== END 2021-04-08 22:55 | disposition home or self-care (01) ==
LOC: ER 19:17
PROVIDERS: Nurse Practitioner Family
DX: D57.1 Sickle-cell disease without crisis (principal); R19.7 Diarrhea, unspecified; N19 Unspecified kidney failure; F17.210 Nicotine dependence, cigarettes, uncomplicated; Z86.16 Personal history of COVID-19; Z90.49 Acquired absence of other specified parts of digestive tract; Z90.89 Acquired absence of other organs; Z79.51 Long term (current) use of inhaled steroids; Z79.891 Long term (current) use of opiate analgesic; Z79.1 Long term (current) use of non-steroidal anti-inflammatories (NSAID); Z79.899 Other long term (current) drug therapy; Z88.5 Allergy status to narcotic agent; Z91.041 Radiographic dye allergy status; Z91.018 Allergy to other foods

== ENCOUNTER 2021-04-13 10:19 | Emergency (ER) | payer BC, OTHER ==
[~2021-04-13] VITALS: Ht 157.5 cm; Wt 69.8 kg
[~2021-04-13 10:19] MED LIST changes: +TESSALON PERLE100 M1 PO
[2021-04-13 13:23] VITALS: BP 115/73
== END 2021-04-13 13:24 | disposition home or self-care (01) ==
LOC: ER 10:19
DX: D57.00 Hb-SS disease with crisis, unspecified (principal); N19 Unspecified kidney failure; F17.210 Nicotine dependence, cigarettes, uncomplicated; Z90.49 Acquired absence of other specified parts of digestive tract; Z90.89 Acquired absence of other organs; Z79.51 Long term (current) use of inhaled steroids; Z79.891 Long term (current) use of opiate analgesic; Z79.899 Other long term (current) drug therapy; Z88.5 Allergy status to narcotic agent; Z91.041 Radiographic dye allergy status; Z88.8 Allergy status to other drugs, medicaments and biological substances; Z91.018 Allergy to other foods

== ENCOUNTER 2021-05-08 07:17 | Emergency (ER) | payer OTHER ==
[~2021-05-08] VITALS: Ht 157.5 cm; Wt 70.8 kg
[2021-05-08 10:28] VITALS: BP 98/48
== END 2021-05-08 10:29 | disposition home or self-care (01) ==
LOC: ER 07:17
DX: J06.9 Acute upper respiratory infection, unspecified (principal); Z20.822 Contact with and (suspected) exposure to COVID-19; R19.7 Diarrhea, unspecified; F17.210 Nicotine dependence, cigarettes, uncomplicated; Z90.49 Acquired absence of other specified parts of digestive tract; Z90.89 Acquired absence of other organs; Z98.890 Other specified postprocedural states; Z79.51 Long term (current) use of inhaled steroids; Z79.899 Other long term (current) drug therapy; Z79.891 Long term (current) use of opiate analgesic; Z88.5 Allergy status to narcotic agent; Z91.018 Allergy to other foods; Z91.041 Radiographic dye allergy status

== ENCOUNTER 2021-06-13 13:04 | Emergency (ER) | payer OTHER ==
[~2021-06-13] VITALS: Ht 172.7 cm; Wt 63.5 kg
[2021-06-13 17:35] LABS: HEMOGLOBIN 12.4 gm/dL (12.0-15.0)
[2021-06-13 17:37] LABS: HEMATOCRIT 37.8 % (37.0-47.0); MCH 26.1 pg (26.0-34.0); MCHC 32.7 g/dL (28.0-37.0); MCV 79.8 fL (80.0-100.0); PLATELET COUNT 500 thou/uL (150-400); RBC 4.73 mil/uL (4.20-5.00); RDW 17.2 % (10.5-14.5)
[2021-06-13 18:07] LABS: ANION GAP 7 mmol/L (7-16); BUN 7 mg/dL (7-18); CALCIUM 9.1 mg/dL (8.5-10.1); CHLORIDE 106 mmol/L (98-107); CO2 22 mmol/L (21-32); GLUCOSE 110 mg/dL (74-106); SODIUM 135 mmol/L (136-145)
[2021-06-13 18:15] LABS: ABSOLUTE NEUTROPHILS 4.8 thou/uL (1.4-8.2); ATYPICAL LYMPHS 1 %; TARGET CELLS 3+
[2021-06-13 18:17] LABS: ALBUMIN 4.2 g/dL (3.4-5.0); SGOT 12 U/L (15-37); SGPT 16 U/L (14-59); TOTAL BILIRUBIN 0.7 mg/dL (0.2-1.0); TOTAL PROTEIN 7.8 g/dL (6.4-8.2)
[2021-06-13 19:16] VITALS: BP 116/66
[2021-06-13 21:04] LABS: ABSOLUTE RETIC COUNT 0.0582 10^6/uL; OBSERVED RETIC COUNT 1.28 % (0.6-2.6)
== END 2021-06-13 19:17 | disposition home or self-care (01) ==
LOC: ER 13:04
PROVIDERS: Emergency Medicine
DX: D57.00 Hb-SS disease with crisis, unspecified (principal); Z20.822 Contact with and (suspected) exposure to COVID-19; R19.7 Diarrhea, unspecified; F17.210 Nicotine dependence, cigarettes, uncomplicated; Z90.49 Acquired absence of other specified parts of digestive tract; Z86.718 Personal history of other venous thrombosis and embolism; Z79.51 Long term (current) use of inhaled steroids; Z79.899 Other long term (current) drug therapy; Z88.5 Allergy status to narcotic agent; Z91.041 Radiographic dye allergy status; Z91.018 Allergy to other foods

== ENCOUNTER 2021-08-09 08:25 | Emergency (ER) | payer BC ==
[~2021-08-09] VITALS: Ht 157.5 cm; Wt 71.7 kg
[2021-08-09 09:46] LABS: MCV 79.3 fL (80.0-100.0); RDW 16.3 % (10.5-14.5); WBC 11.5 thou/uL (4.0-11.0)
[2021-08-09 09:47] LABS: HEMOGLOBIN 11.8 gm/dL (12.0-15.0); MCH 26.8 pg (26.0-34.0); MCHC 33.8 g/dL (28.0-37.0); RBC 4.41 mil/uL (4.20-5.00)
[2021-08-09 09:59] LABS: CALCIUM 9.2 mg/dL (8.5-10.1); POTASSIUM 3.5 mmol/L (3.5-5.1)
[2021-08-09 10:05] LABS: ABSOLUTE RETIC COUNT 0.0431 10^6/uL; OBSERVED RETIC COUNT 1.22 % (0.6-2.6)
[2021-08-09 10:40] LABS: ABSOLUTE NEUTROPHILS 6.4 thou/uL (1.4-8.2); ANISOCYTOSIS 1+
[2021-08-09 10:41] LABS: PLATELET COUNT 396 thou/uL (150-400); TARGET CELLS 1+
[2021-08-09 10:43] LABS: OVALOCYTES FEW
[2021-08-09 11:46] VITALS: BP 105/92
== END 2021-08-09 11:53 | disposition home or self-care (01) ==
LOC: ER 08:25
PROVIDERS: Emergency Medicine
DX: D57.1 Sickle-cell disease without crisis (principal); F17.210 Nicotine dependence, cigarettes, uncomplicated; Z98.890 Other specified postprocedural states; Z90.49 Acquired absence of other specified parts of digestive tract; Z79.899 Other long term (current) drug therapy; Z88.5 Allergy status to narcotic agent; Z91.041 Radiographic dye allergy status